=== PATIENT | female | born 1940 | race Caucasian/White ===

== ENCOUNTER 2017-09-30 13:57 | Inpatient (IN) | payer MEDICARE, OTHER ==
[2017-09-30 13:57] VITALS: BMI 17.6
[2017-09-30] MEDS ORDERED: Albuterol-Ipratrop 3 mg / 0.5 (3 ml) UD INH STA (14:28)
[2017-09-30 14:43] LABS: BASO % 0.1 % (0.0-2.0); EOS % 0.2 % (0.0-4.0); HEMOGLOBIN 12.1 g/dL (11.0-16.0); LYMPH # 0.9 K/uL (1.0-4.3); LYMPH % 11.2 % (20.0-40.0); MEAN CELL VOLUME 85.2 fL (81.0-99.0); MEAN CORPUSCULAR HEMOGLOBIN 29.5 pg (27.0-31.0); MEAN CORPUSCULAR HGB CONC 34.7 g/dL (33.0-37.0); MONO # 0.8 K/uL (0.0-0.8); MONO % 9.1 % (0.0-10.0); NEUT # 6.6 K/uL (1.8-7.0); NEUT % 79.4 % (50.0-75.0); RBC 4.11 Mil/uL (3.80-5.20); RED CELL DISTRIBUTION WIDTH 13.4 % (11.5-14.5); WHITE BLOOD COUNT 8.3 K/uL (4.8-10.8)
[2017-09-30] MEDS ORDERED: Albuterol-Ipratrop 3 mg / 0.5 (3 ml) UD ONE ×2 (14:45→19:55)
[2017-09-30] MEDS ORDERED: Magnesium Sulfate 1 gm in D5W 2 GM/200 ML BAG IVPB ONE (14:46)
[2017-09-30] MEDS: Magnesium Sulfate 1 gm in D5W 1 GM/100 ML BAG IVPB SCH ×2 (14:48→16:27)
[2017-09-30 14:58] LABS: ALB/GLOB RATIO 1.2 (1.0-2.1); ALBUMIN 3.7 g/dL (3.5-5.0); ALT/SGPT 47 U/L (9-52); AST/SGOT 35 U/L (14-36); BLOOD UREA NITROGEN 17 mg/dL (7-17); CALCIUM 9.4 mg/dl (8.6-10.4); GFR AFRICAN-AMERICAN > 60; GFR NON-AFRICAN AMERICAN > 60
[2017-09-30 15:02] LABS: B-TYPE NATRIURETIC PEPTIDE 1270 pg/mL (0-900)
--- NOTE | 2017-09-30 15:14 | RAD ---
Chest x-ray single frontal view History: Shortness of breath. Comparison: 09/18/2017 Findings: Prominent right apical pleural thickening. Worsening masslike consolidative opacification within the right lung apex extending to the right upper lung zone. Left apical pleural thickening. Scattered nodularity in both lung schwartz. Bibasilar breast and nipple shadows. Calcification at the aortic knob. Degenerative changes in the spine and shoulders. Calcification of the bilateral axilla. Impression: Prominent right apical pleural thickening. Worsening masslike consolidative opacification within the right lung apex extending to the right upper lung zone.
[2017-09-30] MEDS ORDERED: cefTRIAXone IV 1 gm in Dextros 50 ML IVPB ONE ×2 (16:15→16:24)
[2017-09-30] MEDS ORDERED: Azithromycin 500 MG in Sodium Chloride 0.9% 250 ML IVPB STA (16:16)
--- NOTE | 2017-09-30 16:39 | CP.PCM.HP ---
Past Patient History - Infectious Disease Hx of Infectious Diseases: None - Past Medical History & Family History Past Medical History?: Yes - Past Social History Smoking Status: Former Smoker - CARDIAC Hx Cardiac Disorders: No - PULMONARY Hx Asthma: Yes Hx Chronic Obstructive Pulmonary Disease (COPD): Yes - NEUROLOGICAL Hx Neurological Disorder: No - HEENT Hx HEENT Problems: Yes Hx Cataracts: Yes (sx both eyes) - RENAL Hx Chronic Kidney Disease: No - ENDOCRINE/METABOLIC Hx Endocrine Disorders: No - HEMATOLOGICAL/ONCOLOGICAL Hx Blood Disorders: No - INTEGUMENTARY Hx Dermatological Problems: No - MUSCULOSKELETAL/RHEUMATOLOGICAL Hx Falls: No - GASTROINTESTINAL Hx Gastrointestinal Disorders: No - GENITOURINARY/GYNECOLOGICAL Hx Genitourinary Disorders: No - PSYCHIATRIC Hx Anxiety: Yes Hx Substance Use: No - SURGICAL HISTORY Hx Surgeries: Yes Hx Cataract Extraction: Yes - ANESTHESIA Hx Anesthesia: Yes Hx Anesthesia Reactions: No Hx Malignant Hyperthermia: No Meds Allergies/Adverse Reactions: Allergies Allergy/AdvReac Type Severity Reaction Status Date / Time No Known Allergies Allergy Verified 09/18/17 19:46 Results - Vital Signs Recent Vital Signs: Last Vital Signs Temp 98.4 F 09/30/17 14:02 Pulse 89 09/30/17 16:17 Resp 20 09/30/17 16:17 BP 88/55 L 09/30/17 16:17 Pulse Ox 99 09/30/17 16:17 - Labs Result Diagrams: 09/30/17 14:37 09/30/17 14:37 Labs: Laboratory Results - last 24 hr 09/30/17 09/30/17 09/30/17 14:37 14:37 15:20 WBC 8.3 RBC 4.11 Hgb 12.1 Hct 35.0 MCV 85.2 MCH 29.5 MCHC 34.7 RDW 13.4 Plt Count 267 MPV 7.0 L Neut % (Auto) 79.4 H Lymph % (Auto) 11.2 L [place] % (Auto) 9.1 Eos % (Auto) 0.2 Baso % (Auto) 0.1 Neut # (Auto) 6.6 Lymph # (Auto) 0.9 L [place] # (Auto) 0.8 Eos # (Auto) 0.0 Baso # (Auto) 0.0 Sodium 128 L Potassium 3.9 Chloride 89 L Carbon Dioxide 27 Anion Gap 16 BUN 17 Creatinine 0.8 Est GFR ( Amer) > 60 Est GFR (Non-Af Amer) > 60 Random Glucose 126 H Calcium 9.4 Total Bilirubin 0.6 AST 35 ALT 47 Alkaline Phosphatase 76 Troponin I < 0.0120 NT-Pro-B Natriuret Pep 1270 H Total Protein 6.9 Albumin 3.7 Globulin 3.1 Albumin/Globulin Ratio 1.2
--- NOTE | 2017-09-30 18:41 | C.PDOC ---
History Of Present Illness 77 year old female presents to ED complaining of shortness of breath for x 1 day associated with a dry cough. Patient states she used her nebulizer at home with no relief. Patient reports she is on home oxygen, but it is not working. Denies fever, chest pain, abdominal pain, vomiting. Time Seen by Provider: 09/30/17 14:06 Chief Complaint (Nursing): Shortness Of Breath History Per: Patient History/Exam Limitations: no limitations Onset/Duration Of Symptoms: Days Current Symptoms Are (Timing): Still Present Past Medical History Reviewed: Historical Data, Nursing Documentation, Vital Signs Vital Signs: Last Vital Signs Temp 98.4 F 09/30/17 14:02 Pulse 89 09/30/17 16:17 Resp 20 09/30/17 16:17 BP 88/55 L 09/30/17 16:17 Pulse Ox 99 09/30/17 18:56 - Medical History PMH: Anxiety, Asthma, COPD, Pneumonia Denies: Chronic Kidney Disease Surgical History: No Surg Hx - [facility] Procedures ALCOHOL DETOXIFICATION (12/30/12) NON-INVASIVE MECHANICAL VENTILATION (12/30/12) Family History: States: No Known Family Hx - Social History Hx Tobacco Use: Yes Hx Alcohol Use: Yes Hx Substance Use: No - Immunization History Hx Tetanus Toxoid Vaccination: No Hx Influenza Vaccination: No Hx Pneumococcal Vaccination: No Review Of Systems Except As Marked, All Systems Reviewed And Found Negative. Constitutional: Negative for: Fever, Chills Cardiovascular: Negative for: Chest Pain Respiratory: Positive for: Cough (dry), Shortness of Breath Gastrointestinal: Negative for: Vomiting, Abdominal Pain Neurological: Negative for: Weakness, Numbness Physical Exam - Physical Exam Appears: Non-toxic, No Acute Distress Skin: Warm, Dry Head: Atraumatic, Normacephalic Eye(s): bilateral: Normal Inspection, PERRL, EOMI Oral Mucosa: Moist Neck: Supple Chest: Symmetrical Cardiovascular: Rhythm Irregular (irregularly irregular) Respiratory: Wheezing (bilateral expiratory wheezing.) Gastrointestinal/Abdominal: Soft, No Tenderness Neurological/Psych: Oriented x3, Normal Speech, Normal Motor, Normal Sensation Gait: Steady ED Course And Treatment - Laboratory Results Result Diagrams: 09/30/17 14:37 09/30/17 14:37 ECG: Interpreted By Me, Viewed By Me ECG Rhythm: Atrial Fibrillation Interpretation Of ECG: A-fib at 107. Normal axis which is new onset from recent EKG O2 Sat by Pulse Oximetry: 99 (RA) Pulse Ox Interpretation: Normal Progress Note: Spoke with Dr. Glover and patient was admitted to [facility] for further evaluation and treatment. Medical Decision Making Medical Decision Making: Impression: Shortness of breath Plan: * CT chest * EKG * labs * Duoneb * Heparin Disposition - Disposition Disposition Time: 15:50 Condition: FAIR - Clinical Impression Clinical Impression: COPD exacerbation - Scribe Statement The provider has reviewed the documentation as recorded by the Albin Pathaked Provider Attestation: All medical record entries made by the Albin were at my direction and personally dictated by me. I have reviewed the chart and agree that the record accurately reflects my personal performance of the history, physical exam, medical decision making, and the department course for this patient. I have also personally directed, reviewed, and agree with the discharge instructions and disposition.
[2017-09-30] MEDS: Vancomycin 1 gm/NS 200 ml 1 GM/200 ML BAG IVPB SCH (20:41)
[2017-09-30] MEDS: Albuterol-Ipratrop 3 mg / 0.5 (3 ml) UD INH SCH (20:41)
[2017-09-30] MEDS: MethylPREDNISolone 40 mg Vial IVP SCH (22:02)
[2017-10-01] MEDS: Albuterol-Ipratrop 3 mg / 0.5 (3 ml) UD INH SCH ×4 (01:35→19:15)
--- NOTE | 2017-10-01 09:01 | CT ---
CT chest History: Right upper lobe consolidation. Comparison: CT dated 09/21/2017 Technique: Multiple contiguous axial images were performed through the chest without the use of intravenous contrast. Subsequently, sagittal and coronal reformatted images were obtained. This CT exam was performed using one or more of the following dose reduction techniques: Automated exposure control, adjustment of the mA and/or kV according to patient size, and/or use of iterative reconstruction technique. Findings: Emphysematous lungs increased in AP diameter. Bullous changes in the upper and lower lobes. At the right lung apex, there is a spiculated masslike consolidation which measures about 7.6 x 3.6 x 3.8 centimeters. There are areas of cavitation and bronchiectasis within the mass. 1 centimeter focal area of nodular consolidation within the inferior aspect of the right upper lobe on series 3 image 66. Diffuse interstitial thickening in the right upper lobe with mild superior retraction of the minor fissure. In the anterior aspect of the left upper lobe, there is a small spiculated consolidation measuring 1.5 x 1.4 x 1.1 centimeters. Similar areas of cavitation and bronchiectasis within the consolidated lung. Additional nodules in the superior segment of the right lower lobe abutting the major fissure, anterior aspect of the left upper lobe, and posterior aspect of both lower lobes. No pleural effusion is identified. Small pericardial thickening. Heavily calcified aorta, great vessels, and coronary arteries. Narrowing of both subclavian arteries. Nonspecific subcentimeter lymph nodes in the right lower paratracheal, left lower paratracheal, aortopulmonary, precarinal, and subcarinal regions. For example, a 9 millimeter lymph node is noted in the right lower paratracheal region. Compression fractures of T2, T3, T10, and T12 vertebral bodies. Small retropulsed fragment indents on the ventral thecal sac at T10. Paucity of subcutaneous fat. Calcifications in the breast. Correlation with mammogram may be helpful. 1.6 centimeter fluid attenuation nodule in the right adrenal gland. Clinical correlation. Impression 7.6 x 3.1 x 3.8 centimeter spiculated masslike consolidation in the right lung apex, increased in size. This is of uncertain clinical etiology. This may represent a lung tumor versus postobstructive pneumonia versus additional etiology. Consider PET-CT scan or tissue sampling. Similar but smaller spiculated consolidation in the left upper lobe measuring 1.2 x 1.4 x 1.1 centimeters, new since the prior study. This also is of uncertain clinical etiology. This may be infectious and or inflammatory in etiology. 1.6 centimeter fluid attenuation nodule in the right adrenal gland which may represent an adrenal adenoma. Clinical correlation. Additional findings as above. These findings were preliminarily reported at 6:19 p.m. on 09/30/[address]Heesun Matthews from [facility].
[2017-10-01] MEDS: Pantoprazole 40 mg EC Tab PO SCH (09:42)
[2017-10-01] MEDS: MethylPREDNISolone 40 mg Vial IVP SCH ×2 (09:42→21:45)
[2017-10-01] MEDS ORDERED: cefTRIAXone IV 1 gm in Dextros 50 ML IVPB SCH (10:00)
[2017-10-01] MEDS ORDERED: Azithromycin 500 MG in Sodium Chloride 0.9% 250 ML IVPB SCH (16:45)
[2017-10-01] MEDS: Vancomycin 1 gm/NS 200 ml 1 GM/200 ML BAG IVPB SCH (21:00)
--- NOTE | 2017-10-01 21:34 | CP.PCM.PN ---
Subjective - Date & Time of Evaluation Date of Evaluation: 10/01/17 Time of Evaluation: 21:33 - Subjective Subjective: less cough doing well no sputum clinically better will check cxr if needed bronch to r/o cancer Objective - Vital Signs/Intake and Output Vital Signs (last 24 hours): Temp Pulse Resp BP Pulse Ox 97.9 F 100 H 18 111/66 96 10/01/17 15:00 10/01/17 15:00 10/01/17 15:00 10/01/17 15:00 10/01/17 15:00 - Medications Medications: Current Medications Albuterol/Ipratropium (Duoneb 3 Mg/0.5 Mg (3 Ml) Ud) 3 ml INH RQ6 [facility] Last Admin: 10/01/17 19:15 Dose: 3 ml Heparin Sodium (Porcine) (Heparin) 5,000 units SC Q8 GAEL Last Admin: 10/01/17 14:08 Dose: 5,000 units Azithromycin 500 mg/ Sodium (Chloride) 250 mls @ 250 mls/hr IVPB Q24H GAEL PRN Reason: Protocol Last Admin: 10/01/17 17:30 Dose: 250 mls/hr Vancomycin/Sodium Chloride (Vancomycin 1 Gm/Ns 200 Ml) 1 gm in 200 mls @ 166.7 mls/hr IVPB Q24H GAEL PRN Reason: Protocol Stop: 10/05/17 20:01 Last Admin: 09/30/17 20:41 Dose: 166.7 mls/hr Ceftriaxone Sodium 1 gm/ (Sodium Chloride) 100 mls @ 100 mls/hr IVPB DAILY GAEL PRN Reason: Protocol Last Admin: 10/01/17 10:54 Dose: 100 mls/hr Methylprednisolone (Solu-Medrol) 40 mg IVP Q12 GAEL Last Admin: 10/01/17 09:42 Dose: 40 mg Pantoprazole Sodium (Protonix Ec Tab) 40 mg PO DAILY GAEL Last Admin: 10/01/17 09:42 Dose: 40 mg - Labs Labs: 09/30/17 14:37 09/30/17 14:37
[2017-10-02] MEDS: Albuterol-Ipratrop 3 mg / 0.5 (3 ml) UD INH SCH ×3 (01:46→14:42)
[2017-10-02] MEDS: MethylPREDNISolone 40 mg Vial IVP SCH (09:19)
[2017-10-02] MEDS: Pantoprazole 40 mg EC Tab PO SCH (09:19)
--- NOTE | 2017-10-02 10:31 | RAD ---
Date of service: 10/02/2017 HISTORY: PNA COMPARISON: 09/30/2017 FINDINGS: LUNGS: Ill-defined pleural-based opacity in right upper lobe corresponding to irregular consolidations/ mass as seen on chest CT examination of 09/30/2017. No interval change. No new infiltrate. PLEURA: No significant pleural effusion identified, no pneumothorax apparent. CARDIOVASCULAR: Normal. OSSEOUS STRUCTURES: No significant abnormalities. VISUALIZED UPPER ABDOMEN: Normal. OTHER FINDINGS: None. IMPRESSION: No change from 09/30/2017. Right upper lobe opacity concerning for neoplasm versus pneumonia. Follow-up advised.
[2017-10-02 11:32] LABS: BASO % 0.1 % (0.0-2.0); HEMOGLOBIN 11.6 g/dL (11.0-16.0); LYMPH # 0.5 K/uL (1.0-4.3); LYMPH % 4.9 % (20.0-40.0); MEAN CELL VOLUME 86.3 fL (81.0-99.0); MEAN CORPUSCULAR HEMOGLOBIN 29.5 pg (27.0-31.0); MEAN CORPUSCULAR HGB CONC 34.2 g/dL (33.0-37.0); MEAN PLATELET VOLUME 6.9 fL (7.2-11.7); MONO # 0.3 K/uL (0.0-0.8); MONO % 3.3 % (0.0-10.0); NEUT # 9.3 K/uL (1.8-7.0); NEUT % 91.7 % (50.0-75.0); PLATELET COUNT 316 K/uL (130-400); RBC 3.92 Mil/uL (3.80-5.20); WHITE BLOOD COUNT 10.1 K/uL (4.8-10.8)
[2017-10-02 11:39] LABS: INR 1.1; PROTHROMBIN TIME 11.5 SECONDS (9.7-12.2)
[2017-10-02 11:55] LABS: ALB/GLOB RATIO 1.2 (1.0-2.1); ALBUMIN 3.6 g/dL (3.5-5.0); ALT/SGPT 31 U/L (9-52); AST/SGOT 12 U/L (14-36); BLOOD UREA NITROGEN 16 mg/dL (7-17); CALCIUM 8.5 mg/dl (8.6-10.4); GFR AFRICAN-AMERICAN > 60; GFR NON-AFRICAN AMERICAN > 60
[2017-10-02 12:00] LABS: ANISOCYTOSIS SLIGHT; BURR CELLS SLIGHT; HYPOCHROMIC SLIGHT; LYMPHOCYTE 5 % (20-40); MONOCYTE 2 % (0-10); MYELOCYTE 1 % (0-0); NEUTROPHIL 92 % (50-75); NUCLEATED RED BLOOD CELL 1 % (0-0); PLATELET ESTIMATE NORMAL (NORMAL); POIKILOCYTOSIS SLIGHT; TOTAL CELLS COUNTED 100
[2017-10-02 15:44] VITALS: BP 124/74; PULSE 81; RESP 20; TEMP 98.1; O2SAT 98
--- NOTE | 2017-10-02 16:06 | CP.PCM.PN ---
Subjective - Date & Time of Evaluation Date of Evaluation: 10/02/17 Time of Evaluation: 16:04 - Subjective Subjective: PATIENT SEEN AND EXAMINED AT THE BEDSIDE AAOX3 / DENIES CHEST PAIN SOB CXR REVIEW NO NEED FOR BRONCH TO R/O CA PER DR SOLIS NO SIGN OF DISTRESS NOTED Objective - Vital Signs/Intake and Output Vital Signs (last 24 hours): Temp Pulse Resp BP Pulse Ox 98.1 F 81 20 124/74 98 10/02/17 15:00 10/02/17 15:00 10/02/17 15:00 10/02/17 15:00 10/02/17 15:00 - Medications Medications: Current Medications Albuterol/Ipratropium (Duoneb 3 Mg/0.5 Mg (3 Ml) Ud) 3 ml INH RQ6 [facility] Last Admin: 10/02/17 14:42 Dose: Not Given Heparin Sodium (Porcine) (Heparin) 5,000 units SC Q8 [facility] Last Admin: 10/02/17 14:00 Dose: 5,000 units Azithromycin 500 mg/ Sodium (Chloride) 250 mls @ 250 mls/hr IVPB Q24H GAEL PRN Reason: Protocol Last Admin: 10/01/17 17:30 Dose: 250 mls/hr Vancomycin/Sodium Chloride (Vancomycin 1 Gm/Ns 200 Ml) 1 gm in 200 mls @ 166.7 mls/hr IVPB Q24H GAEL PRN Reason: Protocol Stop: 10/05/17 20:01 Last Admin: 10/01/17 21:00 Dose: 166.7 mls/hr Ceftriaxone Sodium 1 gm/ (Sodium Chloride) 100 mls @ 100 mls/hr IVPB DAILY GAEL PRN Reason: Protocol Last Admin: 10/02/17 09:19 Dose: 100 mls/hr Methylprednisolone (Solu-Medrol) 40 mg IVP Q12 [facility] Last Admin: 10/02/17 09:19 Dose: 40 mg Pantoprazole Sodium (Protonix Ec Tab) 40 mg PO DAILY [facility] Last Admin: 10/02/17 09:19 Dose: 40 mg - Labs Labs: 10/02/17 11:23 10/02/17 11:23 PT 11.5 SECONDS (9.7-12.2) 10/02/17 11:23 INR 1.1 10/02/17 11:23 APTT 29 SECONDS (21-34) 10/02/17 11:23 Assessment and Plan - Assessment and Plan (Free Text) Assessment: FOLLOW UP WITH DR SOLIS IN 1-2 WEEK AT HIS OFFICE ---CALL FOR APPOINTMENT CONTINUE HOME MEDICATION NEW PRESCRIPTION GIVEN LEVAQUIN 500 MG PO DAILY FOR 7 DAYS BACID 1 TAP DAILY FOR 7 DAYS ACTIVITY TOLERATED CALL DR SOLIS OR GO TO THE EMERGENCY ROOM IF SYMPTOMS OR RETURN DISCUSS WITH PATIENT WHO AGREE AND VERBALIZED UNDERSTANDING
--- NOTE | 2017-10-03 16:51 | CARD ---
APPROVED REPORT Date of service: 09/30/2017 EKG Measurement Heart [id number] <Conclusion> Multifocal atrial tachycardia ST elevation, consider early repolarization, pericarditis, or injury Abnormal ECG
== END 2017-10-02 16:13 | disposition home or self-care (01) | DRG 192 ==
LOC: C.ER 13:57 → C.9E 16:35 → C.5S 21:57
PROVIDERS: ADMIT Internal Medicine; ATTEND Internal Medicine
DX: J44.1 Chronic obstructive pulmonary disease with (acute) exacerbation (principal); Z87.891 Personal history of nicotine dependence; Z99.81 Dependence on supplemental oxygen

== ENCOUNTER 2017-10-26 07:25 | Inpatient (IN) | payer MEDICARE, MEDICAID ==
[2017-10-26 07:39] VITALS: BMI 19.5
--- NOTE | 2017-10-26 08:43 | C.PDOC ---
History Of Present Illness 77 y/o female with history of Asthma and CHF presents to ED with c/o constant sob since this morning associated with cough. Patient is speaking in full sentences and is asking for food at ED. Patient was discharged from hospital 1 day ago. Patient denies fever, chills, leg swelling, nausea, vomiting, chest pain or any other complaints at this time. Time Seen by Provider: 10/26/17 07:47 Chief Complaint (Nursing): Shortness Of Breath History Per: Patient History/Exam Limitations: no limitations Onset/Duration Of Symptoms: Days Current Symptoms Are (Timing): Still Present Past Medical History Reviewed: Historical Data, Nursing Documentation, Vital Signs Vital Signs: Last Vital Signs Temp 98.0 F 10/26/17 09:42 Pulse 118 H 10/26/17 09:42 Resp 17 10/26/17 09:42 BP 128/52 L 10/26/17 09:42 Pulse Ox 94 L 10/26/17 11:01 - Medical History PMH: Anxiety, Asthma, COPD, Pneumonia Surgical History: No Surg Hx - [facility] Procedures ALCOHOL DETOXIFICATION (12/30/12) EXCISION OF CECUM, OPEN APPROACH (10/09/17) EXCISION OF SIGMOID COLON, OPEN APPROACH (10/09/17) NON-INVASIVE MECHANICAL VENTILATION (12/30/12) Family History: States: No Known Family Hx - Social History Hx Tobacco Use: Yes Hx Alcohol Use: No Hx Substance Use: No - Immunization History Hx Tetanus Toxoid Vaccination: (unk) Hx Influenza Vaccination: Yes Hx Pneumococcal Vaccination: (unk) Review Of Systems Constitutional: Negative for: Fever, Chills Cardiovascular: Negative for: Chest Pain Respiratory: Positive for: Cough, Shortness of Breath Gastrointestinal: Negative for: Nausea, Vomiting Skin: Negative for: Rash Physical Exam - Physical Exam Appears: Non-toxic, Other (Cachectic, thin appearing. Speaking in full sentences ) Skin: Warm, Dry, No Rash Head: Atraumatic, Normacephalic Eye(s): bilateral: Normal Inspection Oral Mucosa: Moist Neck: Supple Cardiovascular: Rhythm Regular Respiratory: No Accessory Muscle Use, No Rales, No Rhonchi, Wheezing (diffuse and moderate) Gastrointestinal/Abdominal: Soft, No Tenderness, No Guarding, No Rebound Extremity: Normal ROM, No Pedal Edema, Capillary Refill (<2 seconds) Neurological/Psych: Oriented x3, Normal Speech, Normal Cognition, Normal Motor Gait: Steady ED Course And Treatment - Laboratory Results Result Diagrams: 10/26/17 08:48 10/26/17 08:48 O2 Sat by Pulse Oximetry: 94 (RA) Pulse Ox Interpretation: Abnormal Disposition - Disposition Disposition: HOSPITALIZED Disposition Time: 10:55 Condition: STABLE Forms: [facility] (Malaysian) - POA Present On Arrival: None - Clinical Impression Clinical Impression: Chr obstructive pulmonary disease w/ acute lower respiratory infxn, COPD exacerbation - 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 - Scribe Statement The provider has reviewed the documentation as recorded by the Mariluibhay Wolf All medical record entries made by the Mariluibhay were at my direction and personally dictated by me. I have reviewed the chart and agree that the record accurately reflects my personal performance of the history, physical exam, medical decision making, and the department course for this patient. I have also personally directed, reviewed, and agree with the discharge instructions and disposition.
[2017-10-26 08:53] LABS: BASO % 0.7 % (0.0-2.0); EOS % 0.3 % (0.0-4.0); HEMOGLOBIN 9.1 g/dL (11.0-16.0); LYMPH % 36.8 % (20.0-40.0); MEAN CELL VOLUME 86.6 fL (81.0-99.0); MEAN CORPUSCULAR HEMOGLOBIN 29.7 pg (27.0-31.0); MEAN CORPUSCULAR HGB CONC 34.2 g/dL (33.0-37.0); MEAN PLATELET VOLUME 6.9 fL (7.2-11.7); MONO # 0.9 K/uL (0.0-0.8); MONO % 16.3 % (0.0-10.0); NEUT # 2.4 K/uL (1.8-7.0); NEUT % 45.9 % (50.0-75.0); RBC 3.08 Mil/uL (3.80-5.20); RED CELL DISTRIBUTION WIDTH 15.9 % (11.5-14.5); WHITE BLOOD COUNT 5.3 K/uL (4.8-10.8)
[2017-10-26] MEDS ORDERED: Albuterol-Ipratrop 3 mg / 0.5 (3 ml) UD ONE (08:53)
[2017-10-26 09:08] LABS: ALB/GLOB RATIO 0.9 (1.0-2.1); ALBUMIN 2.3 g/dL (3.5-5.0); ALT/SGPT 24 U/L (9-52); AST/SGOT 19 U/L (14-36); BLOOD UREA NITROGEN 6 mg/dL (7-17); CALCIUM 7.9 mg/dl (8.6-10.4); GFR NON-AFRICAN AMERICAN > 60
[2017-10-26] MEDS: Albuterol-Ipratrop 3 mg / 0.5 (3 ml) UD IH SCH ×2 (09:10→09:25)
[2017-10-26 09:16] LABS: B-TYPE NATRIURETIC PEPTIDE 2100 pg/mL (0-900)
--- NOTE | 2017-10-26 11:28 | RAD ---
Date of service: 10/26/2017 PROCEDURE: CHEST RADIOGRAPH, 1 VIEW HISTORY: SOB COMPARISON: 10/19/2017 FINDINGS: LUNGS: Interval increase left pleural effusion. Inferred interval increased compressive atelectasis left lung base. Concomitant underlying infiltrate here and not excluded. The right pleural parenchymal pathology is [id number] before its clinical significance etiology is unclear. Underlying inflammatory/neoplastic changes here all considerations. Detailed clinical history here needed. Bullous emphysematous like changes probable perihilar PLEURA: Increasing left pleural effusion. No pneumothorax seen. Right apical pleural parenchymal similar pathology as noted above. CARDIOVASCULAR: Normal heart size. Pulmonary vasculature probably top-normal. OSSEOUS STRUCTURES: Senescent changes. VISUALIZED UPPER ABDOMEN: Normal. OTHER FINDINGS: Very extensive and very diffuse atherosclerotic vascular disease over each apex -lower neck each subclavian each axillary location. Thoracic aorta also heavily calcified. IMPRESSION: Interval increase left pleural effusion with inferred interval increase left compressive atelectasis. A concomitant left basal infiltrate -not excluded. Other extensive findings are as before.
--- NOTE | 2017-10-26 20:28 | CP.PCM.HP ---
History of Present Illness - History of Present Illness History of Present Illness: Chief complain: Patient came to the emergency room with the sudden onset of worsening shortness of breath. 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 Also seen by oncologist, but no aggressive treatment needed at this time for that. Patient was discharged, within 2 days patient started having increasing shortness of breath, also having cough and unable to breathe. She was not able to produce any mucus No fever noted She did not have any chest pain, no nausea no vomiting. But was not able to eat well. Past medical history: Hypertension, recurrent pedal edema, COPD, history of pneumonia in the past, Colon cancer recently diagnosed, and neuroendocrine type, adenocarcinoma type colon cancer noted. Allergies: No known drug allergy Surgical history includes cholecystectomy, Near-total colectomy Personal history: Patient is a heavy smoker, still continues to smoke almost a pack per day, she is also drinking alcohol she almost a drinks 6 cans of beer daily still continues to drink alcohol Family history: Patient's family members one of the brother of lung cancer and also had diabetes and hypertension Review of system: Patient is currently having some headache, no nausea noted, no visual symptoms, no sore throat noted, poor appetite, generalized weakness noted, cough and wheezing as well as shortness of breath present also complaining of abdominal pain on and off, no nausea vomiting, no leg swelling On examination: Vital signs reviewed Chest bilateral diffuse wheezing and rhonchi noted regular heart sound, tachycardia and high blood pressure noted Minimal abdominal distention present. Meghan noted. Pedal edema 1+ Labs reviewed 10/26/17 08:48 10/26/17 08:48 Chest x-ray showing evidence of COPD pattern and some vascular congestion or pneumonia on the right lower lung noted Assessment/condition: 77-year-old female with history of chronic obstructive lung disease alcoholic abuse chronic smoker malnourishment current recurrent pedal edema now admitted with acute exacerbation of COPD. Patient now admitted with acute exacerbation of COPD. Patient will need bronchodilators, low-dose corticosteroid, bronchodilators and no antibiotic needed at this time. Patient also has a increasing weakness, secondary to long hospitalization and the post surgical. She will need a physical therapy and evaluation. I advised the patient for subacute rehab, but the patient is currently refusing to go. We will start the physical therapy in the hospital. Anemia noted, most likely related to chronic disease, will monitor. DVT and GI prophylaxis. Present on Admission - Present on Admission Any Indicators Present on Admission: No History of DVT/PE: No History of Uncontrolled Diabetes: No Urinary Catheter: No Decubitus Ulcer Present: No Past Patient History - Infectious Disease Hx of Infectious Diseases: None - Past Medical History & Family History Past Medical History?: Yes - Past Social History Smoking Status: Former Smoker - CARDIAC Hx Cardiac Disorders: Yes Hx Congestive Heart Failure: Yes - PULMONARY Hx Asthma: Yes Hx Chronic Obstructive Pulmonary Disease (COPD): Yes Hx Pneumonia: Yes - NEUROLOGICAL Hx Neurological Disorder: No - HEENT Hx HEENT Problems: Yes Hx Cataracts: Yes (sx both eyes) - RENAL Hx Chronic Kidney Disease: No - ENDOCRINE/METABOLIC Hx Endocrine Disorders: No - HEMATOLOGICAL/ONCOLOGICAL Hx Blood Disorders: No Hx Cancer: Yes (colon) - INTEGUMENTARY Hx Dermatological Problems: No - MUSCULOSKELETAL/RHEUMATOLOGICAL Hx Musculoskeletal Disorders: No Hx Falls: No - GASTROINTESTINAL Hx Gastrointestinal Disorders: Yes Other/Comment: colon obstruction,colon ca - GENITOURINARY/GYNECOLOGICAL Hx Genitourinary Disorders: No - PSYCHIATRIC Hx Anxiety: Yes Hx Substance Use: No - SURGICAL HISTORY Hx Surgeries: Yes Hx Cataract Extraction: Yes Hx Section: Yes Other/Comment: colon surgery for obstruction,cancer - ANESTHESIA Hx Anesthesia: Yes Hx Anesthesia Reactions: No Hx Malignant Hyperthermia: No Has any member of the family had a problem w/ anesthesia?: No Meds Allergies/Adverse Reactions: Allergies Allergy/AdvReac Type Severity Reaction Status Date / Time No Known Allergies Allergy Verified 10/26/17 07:38 Results - Vital Signs Recent Vital Signs: Last Vital Signs Temp 98.0 F 10/26/17 15:00 Pulse 104 H 10/26/17 15:00 Resp 20 10/26/17 15:00 BP 104/59 L 10/26/17 15:00 Pulse Ox 98 10/26/17 15:00 - Labs Result Diagrams: 10/26/17 08:48 10/26/17 08:48 Labs: Laboratory Results - last 24 hr 10/26/17 10/26/17 08:48 08:48 WBC 5.3 RBC 3.08 L Hgb 9.1 L Hct 26.7 L MCV 86.6 MCH 29.7 MCHC 34.2 RDW 15.9 H Plt Count 178 MPV 6.9 L Neut % (Auto) 45.9 L Lymph % (Auto) 36.8 [place] % (Auto) 16.3 H Eos % (Auto) 0.3 Baso % (Auto) 0.7 Neut # (Auto) 2.4 Lymph # (Auto) 2.0 [place] # (Auto) 0.9 H Eos # (Auto) 0.0 Baso # (Auto) 0.0 Sodium 133 Potassium 3.9 Chloride 101 Carbon Dioxide 24 Anion Gap 12 BUN 6 L Creatinine 0.5 L Est GFR ( Amer) > 60 Est GFR (Non-Af Amer) > 60 Random Glucose 53 L Calcium 7.9 L Total Bilirubin 0.5 AST 19 ALT 24 Alkaline Phosphatase 43 NT-Pro-B Natriuret Pep 2100 H Total Protein 4.7 L Albumin 2.3 L Globulin 2.4 Albumin/Globulin Ratio 0.9 L
[2017-10-27] MEDS: Tiotropium 18 mcg Cap For Inhalation INH SCH (07:58)
--- NOTE | 2017-10-27 09:54 | CP.PCM.PN ---
Subjective - Date & Time of Evaluation Date of Evaluation: 10/27/17 Time of Evaluation: 09:53 - Subjective Subjective: Patient is morning feeling well. Still having some shortness of breath. Using oxygen. Cough noted, but no mucus. On examination: Good air entry, but left lower lung decreased air entry noted. Regular heart sound. Nontender abdomen. Edema 1+ Chest x-ray yesterday showing left lower lung pneumonia, possibly effusion, Will get a CT scan of the chest. Patient is 77-year-old female with a history of chronic COPD on home oxygen. Recently had a surgical intervention for acute colon obstruction, complicating with the vomiting status post a hemicolectomy, adenocarcinoma of the colon. Now admitted with possible pneumonia, left pleural effusion will get a CT scan. Possible thoracentesis may be needed and will follow the patient. Physical exercise and therapy advised Objective - Vital Signs/Intake and Output Vital Signs (last 24 hours): Temp Pulse Resp BP Pulse Ox 98.3 F 97 H 18 125/72 99 10/27/17 07:05 10/27/17 07:35 10/27/17 07:05 10/27/17 07:05 10/27/17 07:05 - Medications Medications: Current Medications Albuterol/Ipratropium (Duoneb 3 Mg/0.5 Mg (3 Ml) Ud) 3 ml INH RQ6 PRN PRN Reason: SOB Furosemide (Lasix) 20 mg IVP DAILY GAEL Cefepime HCl 1 gm/ Dextrose 50 mls @ 100 mls/hr IVPB Q12H GAEL PRN Reason: Protocol Stop: 11/01/17 10:01 Lactobacillus Acidophilus (Bacid Acidophilus) 1 cap PO DAILY GAEL Pantoprazole Sodium (Protonix Ec Tab) 40 mg PO DAILY GAEL Pneumococcal Polyvalent Vaccine (Pneumovax 23 Vaccine) 0.5 ml IM .ONCE ONE Stop: 10/27/17 14:01 Tiotropium [place] (Spiriva) 18 mcg INH RQ24 GAEL Last Admin: 10/27/17 07:58 Dose: 18 mcg - Labs Labs: 10/26/17 08:48 10/26/17 08:48
[2017-10-27] MEDS: Lactobacillus Acidophilus 500 MU Cap PO SCH (10:00)
[2017-10-27] MEDS: Pantoprazole 40 mg EC Tab PO SCH (10:00)
--- NOTE | 2017-10-27 11:51 | CT ---
Date of service: 10/27/2017 PROCEDURE: CT Chest without contrast HISTORY: Left lung pneumonia COMPARISON: 10/07/17. TECHNIQUE: Contiguous axial images were obtained through the chest without intravenous contrast enhancement. Sagittal and coronal reconstructions were performed. Radiation dose (DLP): mGy-cm. This CT exam was performed using one or more of the following dose reduction techniques: Automated exposure control, adjustment of the mA and/or kV according to patient size, and/or use of iterative reconstruction technique. FINDINGS: LUNGS: Stable mass with cavitation is smaller in size at the right upper lobe measuring 4.6 x 3.8 x 2.1 cm indicating inflammatory infectious process. MEDIASTINUM: Unremarkable thoracic aorta. No aneurysm. Normal sized heart. Main pulmonary artery unremarkable. No vascular congestion. No lymphadenopathy. PLEURA: New large left pleural effusion with compressive consolidation at the left base. New small right pleural effusion. BONES: No fracture. No destructive lesion. UPPER ABDOMEN: Ascites. OTHER FINDINGS: None. IMPRESSION: Stable mass with cavitation is smaller in size at the right upper lobe measuring 4.6 x 3.8 x 2.1 cm indicating inflammatory infectious process. New large left pleural effusion with compressive consolidation at the left base. New small right pleural effusion. Ascites
[2017-10-27] MEDS ORDERED: Pneumococcal 23-Valent Vaccine IM ONE (14:00)
[2017-10-28] MEDS: Tiotropium 18 mcg Cap For Inhalation INH SCH (07:36)
[2017-10-28] MEDS: Pantoprazole 40 mg EC Tab PO SCH (10:09)
[2017-10-28] MEDS: Lactobacillus Acidophilus 500 MU Cap PO SCH (10:10)
[2017-10-28] MEDS ORDERED: MethylPREDNISolone 40 mg Vial IV ONE (16:30)
--- NOTE | 2017-10-28 23:01 | CARD ---
APPROVED REPORT Date of service: 10/26/2017 EKG Measurement Heart [id number] <Conclusion> Sinus tachycardia with premature atrial complexes Low voltage QRS Abnormal ECG
[2017-10-29] MEDS: MethylPREDNISolone 40 mg Vial IV SCH ×3 (00:22→21:22)
[2017-10-29] MEDS: Tiotropium 18 mcg Cap For Inhalation INH SCH (07:42)
[2017-10-29] MEDS: Pantoprazole 40 mg EC Tab PO SCH (09:39)
[2017-10-29] MEDS: Lactobacillus Acidophilus 500 MU Cap PO SCH (09:39)
[2017-10-29] MEDS ORDERED: Sodium Chloride 0.9% 1,000 ML IV SCH (14:00)
--- NOTE | 2017-10-29 14:07 | CP.PCM.PN ---
Subjective - Date & Time of Evaluation Date of Evaluation: 10/29/17 Time of Evaluation: 14:07 - Subjective Subjective: Repeat chest x-ray showing evidence of left pleural effusion. Patient is still having episodes of shortness of breath Vital signs otherwise stable. Chest good air entry, expiratory wheezing Assessment: 77-year-old female with a history of COPD, chronic smoker. Alcoholism in the past. Admitted to the hospital with intestinal Suction. Status post a colectomy. Now having left-sided pneumonia, pleural effusion, and a possibly acute ex acerbation of CHF. Will continue the current treatment and will follow the patient Objective - Vital Signs/Intake and Output Vital Signs (last 24 hours): Temp Pulse Resp BP Pulse Ox 97.5 F L 81 20 80/56 L 99 10/29/17 08:10 10/29/17 08:10 10/29/17 08:10 10/29/17 09:39 10/29/17 08:10 Intake and Output: 10/29/17 10/29/17 06:59 18:59 Intake Total 400 Balance 400 - Medications Medications: Current Medications Albuterol/Ipratropium (Duoneb 3 Mg/0.5 Mg (3 Ml) Ud) 3 ml INH RQ6 PRN PRN Reason: SOB Furosemide (Lasix) 20 mg IVP DAILY [facility] Last Admin: 10/29/17 09:39 Dose: Not Given Cefepime HCl 1 gm/ Dextrose 50 mls @ 100 mls/hr IVPB Q12H GAEL PRN Reason: Protocol Stop: 11/01/17 12:01 Last Admin: 10/29/17 12:44 Dose: 100 mls/hr Sodium Chloride (Sodium Chloride 0.9%) 1,000 mls @ 50 mls/hr IV .Q20H GAEL Stop: 10/30/17 00:01 Lactobacillus Acidophilus (Bacid Acidophilus) 1 cap PO DAILY GAEL Last Admin: 10/29/17 09:39 Dose: 1 cap Methylprednisolone (Solu-Medrol) 40 mg IV Q12 GAEL Last Admin: 10/29/17 09:39 Dose: 40 mg Pantoprazole Sodium (Protonix Ec Tab) 40 mg PO DAILY GAEL Last Admin: 10/29/17 09:39 Dose: 40 mg Tiotropium [place] (Spiriva) 18 mcg INH RQ24 GAEL Last Admin: 10/29/17 07:42 Dose: 18 mcg - Labs Labs: 10/26/17 08:48 10/26/17 08:48
[2017-10-30] MEDS: MethylPREDNISolone 40 mg Vial IV SCH ×2 (10:07→21:00)
[2017-10-30] MEDS: Lactobacillus Acidophilus 500 MU Cap PO SCH (10:08)
[2017-10-30] MEDS: Pantoprazole 40 mg EC Tab PO SCH (10:12)
[2017-10-30 11:37] LABS: PROTHROMBIN TIME 10.5 SECONDS (9.7-12.2)
[2017-10-30] MEDS ORDERED: Furosemide 100 MG in Dextrose 5% In Water 90 ML IVP SCH (15:45)
[2017-10-31] MEDS: Tiotropium 18 mcg Cap For Inhalation INH SCH (08:07)
--- NOTE | 2017-10-31 08:19 | CP.PCM.PN ---
Subjective - Date & Time of Evaluation Date of Evaluation: 10/30/17 Time of Evaluation: 08:18 - Subjective Subjective: Patient still feeling some shortness of breath. Cough presently No chest pain. Weakness noted Vital signs stable. But the blood pressure slightly on the low side Chest decreased air entry in the left lower lung schwartz. Regular heart sound noted. Nontender abdomen. Postoperative Patient is having regular bowel movements Edema 1+ in the legs noted Assessment: 77-year-old female admitted with left lower lung pneumonia, effusion, and the shortness of breath. Awaiting for thoracentesis Will closely monitor. Repeat labs tomorrow Objective - Vital Signs/Intake and Output Vital Signs (last 24 hours): Temp Pulse Resp BP Pulse Ox 97.7 F 80 20 104/66 100 10/31/17 07:00 10/31/17 07:00 10/31/17 07:00 10/31/17 07:00 10/31/17 07:00 Intake and Output: 10/31/17 10/31/17 06:59 18:59 Intake Total 150 Balance 150 - Medications Medications: Current Medications Albuterol/Ipratropium (Duoneb 3 Mg/0.5 Mg (3 Ml) Ud) 3 ml INH RQ6 PRN PRN Reason: SOB Cefepime HCl 1 gm/ Dextrose 50 mls @ 100 mls/hr IVPB Q12H GAEL PRN Reason: Protocol Stop: 11/01/17 12:01 Last Admin: 10/31/17 00:43 Dose: 100 mls/hr Lactobacillus Acidophilus (Bacid Acidophilus) 1 cap PO DAILY GAEL Last Admin: 10/30/17 10:08 Dose: 1 cap Pantoprazole Sodium (Protonix Ec Tab) 40 mg PO DAILY GAEL Last Admin: 10/30/17 10:12 Dose: 40 mg Tiotropium [place] (Spiriva) 18 mcg INH RQ24 GAEL Last Admin: 10/31/17 08:07 Dose: 18 mcg - Labs Labs: 10/26/17 08:48 10/26/17 08:48 PT 10.5 SECONDS (9.7-12.2) 10/30/17 11:25 INR 1.0 10/30/17 11:25 APTT 25 SECONDS (21-34) 10/30/17 11:25
[2017-10-31] MEDS ORDERED: Lidocaine Hydrochloride 5 ML INJ ONE (08:40)
[2017-10-31] MEDS: Lactobacillus Acidophilus 500 MU Cap PO SCH (09:20)
[2017-10-31] MEDS: Pantoprazole 40 mg EC Tab PO SCH (09:20)
[2017-10-31] MEDS: MethylPREDNISolone 40 mg Vial IV SCH (09:20)
--- NOTE | 2017-10-31 09:53 | PCM.SURG1 ---
Surgeon's Initial Post Op Note - Surgeon's Notes Surgeon: Juan Romero MD Nanoscience Technician: NONE Type of Anesthesia: Local Pre-Operative Diagnosis: Left pleural effusion Operative Findings: US showed small left pleural effusion Post-Operative Diagnosis: Left pleural effusion Operation Performed: US guided thoracentesis Specimen/Specimens Removed: 450 cc of clear fluid Estimated Blood Loss: EBL {In ML}: 0 Blood Products Given: N/A Drains Used: No Drains Post-Op Condition: Fair Date of Surgery/Procedure: 10/31/17 Time of Surgery/Procedure: 09:20
[2017-10-31 12:07] LABS: BASO % 0.3 % (0.0-2.0); EOS % 0.1 % (0.0-4.0); LYMPH # 0.8 K/uL (1.0-4.3); LYMPH % 16.9 % (20.0-40.0); MEAN CELL VOLUME 86.3 fL (81.0-99.0); MEAN CORPUSCULAR HEMOGLOBIN 29.2 pg (27.0-31.0); MEAN CORPUSCULAR HGB CONC 33.9 g/dL (33.0-37.0); MEAN PLATELET VOLUME 7.3 fL (7.2-11.7); MONO # 0.4 K/uL (0.0-0.8); MONO % 9.2 % (0.0-10.0); NEUT # 3.5 K/uL (1.8-7.0); NEUT % 73.5 % (50.0-75.0); NRBC % 0.1 % (0.0-2.0); RBC 3.44 Mil/uL (3.80-5.20); WHITE BLOOD COUNT 4.7 K/uL (4.8-10.8)
[2017-10-31 12:35] LABS: ALB/GLOB RATIO 0.9 (1.0-2.1); ALBUMIN 2.4 g/dL (3.5-5.0); ALT/SGPT 28 U/L (9-52); AST/SGOT 24 U/L (14-36); BLOOD UREA NITROGEN 12 mg/dL (7-17); CALCIUM 8.2 mg/dl (8.6-10.4); GFR NON-AFRICAN AMERICAN > 60
--- NOTE | 2017-11-01 08:22 | RAD ---
Date of service: 10/31/2017 HISTORY: postthoracentesis COMPARISON: Portable chest 10/26/2017. FINDINGS: LUNGS: Examination appears somewhat underpenetrated. Diminishing left pleural effusion is evident. None is identified at right. Underlying left basilar airspace disease not excluded. No pneumothorax bilaterally. Biapical pleural fibrosis/plaque calcifications reiterated. PLEURA: As above. CARDIOVASCULAR: Normal cardiac size reiterated. Vascular calcifications again seen at the region of the great vessels subclavian and proximal brachial regions bilaterally. OSSEOUS STRUCTURES: No significant abnormalities. VISUALIZED UPPER ABDOMEN: Normal. OTHER FINDINGS: None. IMPRESSION: Diminishing left pleural effusion. Underlying left basilar airspace disease not excluded. Biapical pleural fibrosis reiterated.
[2017-11-01] MEDS: Tiotropium 18 mcg Cap For Inhalation INH SCH (08:28)
[2017-11-01] MEDS: Pantoprazole 40 mg EC Tab PO SCH (10:15)
[2017-11-01] MEDS: MethylPREDNISolone 40 mg Vial IV SCH (10:15)
[2017-11-01] MEDS: Lactobacillus Acidophilus 500 MU Cap PO SCH (10:15)
[2017-11-01] MEDS ORDERED: MethylPREDNISolone 40 mg Vial IV SCH (18:27)
[2017-11-01] MEDS: Magnesium Sulfate 1 gm in D5W 1 GM/100 ML BAG IVPB SCH ×2 (18:46→19:47)
[2017-11-01] MEDS: Albuterol-Ipratrop 3 mg / 0.5 (3 ml) UD INH PRN (22:08)
[2017-11-02] MEDS: Pantoprazole 40 mg EC Tab PO SCH (09:09)
[2017-11-02] MEDS: Lactobacillus Acidophilus 500 MU Cap PO SCH (09:09)
[2017-11-02] MEDS: Tiotropium 18 mcg Cap For Inhalation INH SCH (10:45)
[2017-11-02] MEDS: Albuterol-Ipratrop 3 mg / 0.5 (3 ml) UD INH PRN (19:39)
--- NOTE | 2017-11-02 20:33 | CP.PCM.PN ---
Subjective - Date & Time of Evaluation Date of Evaluation: 11/02/17 Time of Evaluation: 20:33 - Subjective Subjective: Patient is feeling weak. She is concerned about going home. She has weakness, unable to stand up and walk. Tremor present On examination: Vital signs stable otherwise. Chest decreased air entry regular heart sound Abdomen soft nontender. Edema bilaterally 1+ Assessment: 77-year-old female admitted to the hospital with left-sided pneumonia, pleural effusion status post thoracentesis. Clinical patient is feeling okay, but weakness generalized to noted. Status post colectomy. Poor intake weight loss and malnourishment. Will continue the current treatment, physical exercise. I advised the patient for rehabilitation but the patient is currently refusing Objective - Vital Signs/Intake and Output Vital Signs (last 24 hours): Temp Pulse Resp BP Pulse Ox 98.3 F 82 20 96/62 L 97 11/02/17 15:46 11/02/17 16:00 11/02/17 15:46 11/02/17 15:46 11/02/17 15:46 Intake and Output: 11/02/17 11/03/17 18:59 06:59 Intake Total 320 Output Total 400 Balance -80 - Medications Medications: Current Medications Albuterol/Ipratropium (Duoneb 3 Mg/0.5 Mg (3 Ml) Ud) 3 ml INH RQ6 PRN PRN Reason: SOB Last Admin: 11/02/17 19:39 Dose: 3 ml Lactobacillus Acidophilus (Bacid Acidophilus) 1 cap PO DAILY GAEL Last Admin: 11/02/17 09:09 Dose: 1 cap Pantoprazole Sodium (Protonix Ec Tab) 40 mg PO DAILY GAEL Last Admin: 11/02/17 09:09 Dose: 40 mg Tiotropium [place] (Spiriva) 18 mcg INH RQ24 GAEL Last Admin: 11/02/17 10:45 Dose: 18 mcg - Labs Labs: 10/31/17 11:35 10/31/17 11:35 PT 10.5 SECONDS (9.7-12.2) 10/30/17 11:25 INR 1.0 10/30/17 11:25 APTT 25 SECONDS (21-34) 10/30/17 11:25
[2017-11-03] MEDS: Lactobacillus Acidophilus 500 MU Cap PO SCH (09:21)
[2017-11-03] MEDS: Pantoprazole 40 mg EC Tab PO SCH (09:21)
[2017-11-04] MEDS: Tiotropium 18 mcg Cap For Inhalation INH SCH (08:11)
[2017-11-04] MEDS: Lactobacillus Acidophilus 500 MU Cap PO SCH (10:16)
[2017-11-04] MEDS: Pantoprazole 40 mg EC Tab PO SCH (10:16)
[2017-11-05] MEDS: Tiotropium 18 mcg Cap For Inhalation INH SCH (08:22)
[2017-11-05] MEDS: Lactobacillus Acidophilus 500 MU Cap PO SCH (09:30)
[2017-11-05] MEDS: Pantoprazole 40 mg EC Tab PO SCH (09:30)
[2017-11-05 13:47] LABS: BASO # 0.1 K/uL (0.0-0.2); BASO % 0.9 % (0.0-2.0); EOS % 0.7 % (0.0-4.0); HEMOGLOBIN 9.4 g/dL (11.0-16.0); LYMPH # 1.5 K/uL (1.0-4.3); LYMPH % 24.1 % (20.0-40.0); MEAN CELL VOLUME 86.4 fL (81.0-99.0); MEAN CORPUSCULAR HEMOGLOBIN 29.2 pg (27.0-31.0); MEAN CORPUSCULAR HGB CONC 33.9 g/dL (33.0-37.0); MEAN PLATELET VOLUME 7.2 fL (7.2-11.7); MONO # 0.6 K/uL (0.0-0.8); MONO % 10.5 % (0.0-10.0); NEUT # 3.8 K/uL (1.8-7.0); NEUT % 63.8 % (50.0-75.0); NRBC % 0.1 % (0.0-2.0); RBC 3.22 Mil/uL (3.80-5.20)
[2017-11-05 14:18] LABS: ALBUMIN 2.5 g/dL (3.5-5.0); ALT/SGPT 36 U/L (9-52); AST/SGOT 21 U/L (14-36); BLOOD UREA NITROGEN 12 mg/dL (7-17); CALCIUM 8.2 mg/dl (8.6-10.4); GFR NON-AFRICAN AMERICAN > 60
[2017-11-06] MEDS: Magnesium Sulfate 1 gm in D5W 1 GM/100 ML BAG IVPB SCH ×2 (01:23→02:01)
[2017-11-06] MEDS: Tiotropium 18 mcg Cap For Inhalation INH SCH (07:30)
[2017-11-06] MEDS: Lactobacillus Acidophilus 500 MU Cap PO SCH (09:55)
[2017-11-06] MEDS: Pantoprazole 40 mg EC Tab PO SCH (09:55)
--- NOTE | 2017-11-06 10:57 | US ---
PROCEDURE: Date of procedure: 10/31/2017 Procedure: 1. Ultrasound-guided left thoracentesis, CPT 96194 Medications: 1% Lidocaine HISTORY: Left pleural effusion, shortness of breath TECHNIQUE: Following informed consent ,the Patients' left chest was marked. Procedure time-out was called, and the patient was placed in the sitting position and limited ultrasound showed a small left effusion. The patient's left back was prepped and draped in the usual sterile fashion. After the skin was anesthetized with lidocaine, a drainage catheter was advanced under ultrasound guidance into the pleural space. Ultrasound-guided thoracentesis was performed. A total of 450 cubic centimeters of straw-colored fluid removed without complication. A Xeroform dressing was applied. IMPRESSION: Ultrasound guided left thoracentesis. There were no immediate complications.
[2017-11-06] MEDS: Albuterol-Ipratrop 3 mg / 0.5 (3 ml) UD INH PRN (14:29)
[2017-11-07] MEDS: Albuterol-Ipratrop 3 mg / 0.5 (3 ml) UD INH PRN (07:44)
[2017-11-07] MEDS: Tiotropium 18 mcg Cap For Inhalation INH SCH (07:46)
[2017-11-07] MEDS: Pantoprazole 40 mg EC Tab PO SCH (10:13)
[2017-11-07] MEDS: Lactobacillus Acidophilus 500 MU Cap PO SCH (10:14)
[2017-11-07 16:14] VITALS: RESP 20
--- NOTE | 2017-11-07 21:46 | CP.PCM.PN ---
Subjective - Date & Time of Evaluation Date of Evaluation: 11/03/17 Time of Evaluation: 21:46 - Subjective Subjective: Patient is feeling weak. She is concerned about going home. She has weakness, unable to stand up and walk. Tremor present On examination: Vital signs stable otherwise. Chest decreased air entry regular heart sound Abdomen soft nontender. Edema bilaterally 1+ Assessment: 77-year-old female admitted to the hospital with left-sided pneumonia, pleural effusion status post thoracentesis. Clinical patient is feeling okay, but weakness generalized to noted. Status post colectomy. Poor intake weight loss and malnourishment. Will continue the current treatment, physical exercise. I advised the patient for rehabilitation but the patient is currently refusing Objective - Vital Signs/Intake and Output Vital Signs (last 24 hours): Temp Pulse Resp BP Pulse Ox 98.5 F 90 20 105/58 L 96 11/07/17 19:36 11/07/17 19:36 11/07/17 15:45 11/07/17 19:36 11/07/17 15:45 Intake and Output: 11/07/17 11/08/17 18:59 06:59 Intake Total 320 Output Total 280 Balance 40 - Medications Medications: Current Medications Albuterol/Ipratropium (Duoneb 3 Mg/0.5 Mg (3 Ml) Ud) 3 ml INH RQ6 PRN PRN Reason: SOB Last Admin: 11/07/17 07:44 Dose: 3 ml Lactobacillus Acidophilus (Bacid Acidophilus) 1 cap PO DAILY GAEL Last Admin: 11/07/17 10:14 Dose: 1 cap Pantoprazole Sodium (Protonix Ec Tab) 40 mg PO DAILY GAEL Last Admin: 11/07/17 10:13 Dose: 40 mg Tiotropium [place] (Spiriva) 18 mcg INH RQ24 GAEL Last Admin: 11/07/17 07:46 Dose: 18 mcg - Labs Labs: 11/05/17 13:42 11/05/17 13:42 PT 10.5 SECONDS (9.7-12.2) 10/30/17 11:25 INR 1.0 10/30/17 11:25 APTT 25 SECONDS (21-34) 10/30/17 11:25
--- NOTE | 2017-11-07 21:49 | CP.PCM.PN ---
Subjective - Date & Time of Evaluation Date of Evaluation: 11/05/17 Time of Evaluation: 21:49 - Subjective Subjective: Patient is sitting up today. But still having feeling weakness. Chest pain negative. Cough present Vital signs: Temperature 98.1 blood pressure 142/72 chest good air entry bilaterally. Regular heart sound. Abdominal distention present, having bowel movements Patient's labs reviewed Low magnesium Hyponatremia noted Corrections Sergeant supplemented Assessment: 77-year-old female with a history of colon cancer, status post surgery. Neuroendocrine tumor of the colon. COPD. Chronic smoker. Alcoholism. Mal nourishment Patient still feeling extremely weak, suggested physical therapy, but the patient is still refusing. Continue the supportive care and physical therapy and will follow-up the patient Objective - Vital Signs/Intake and Output Vital Signs (last 24 hours): Temp Pulse Resp BP Pulse Ox 98.5 F 90 20 105/58 L 96 11/07/17 19:36 11/07/17 19:36 11/07/17 15:45 11/07/17 19:36 11/07/17 15:45 Intake and Output: 11/07/17 11/08/17 18:59 06:59 Intake Total 320 Output Total 280 Balance 40 - Medications Medications: Current Medications Albuterol/Ipratropium (Duoneb 3 Mg/0.5 Mg (3 Ml) Ud) 3 ml INH RQ6 PRN PRN Reason: SOB Last Admin: 11/07/17 07:44 Dose: 3 ml Lactobacillus Acidophilus (Bacid Acidophilus) 1 cap PO DAILY [facility] Last Admin: 11/07/17 10:14 Dose: 1 cap Pantoprazole Sodium (Protonix Ec Tab) 40 mg PO DAILY GAEL Last Admin: 11/07/17 10:13 Dose: 40 mg Tiotropium [place] (Spiriva) 18 mcg INH RQ24 GAEL Last Admin: 11/07/17 07:46 Dose: 18 mcg - Labs Labs: 11/05/17 13:42 11/05/17 13:42 PT 10.5 SECONDS (9.7-12.2) 10/30/17 11:25 INR 1.0 10/30/17 11:25 APTT 25 SECONDS (21-34) 10/30/17 11:25
--- NOTE | 2017-11-07 21:49 | CP.PCM.PN ---
Subjective - Date & Time of Evaluation Date of Evaluation: 11/04/17 Time of Evaluation: 21:48 - Subjective Subjective: Patient is sitting up today. But still having feeling weakness. Chest pain negative. Cough present Vital signs: Temperature 98.1 blood pressure 142/72 chest good air entry bilaterally. Regular heart sound. Abdominal distention present, having bowel movements Assessment: 77-year-old female with a history of colon cancer, status post surgery. Neuroendocrine tumor of the colon. COPD. Chronic smoker. Alcoholism. Mal nourishment Patient still feeling extremely weak, suggested physical therapy, but the patient is still refusing. Continue the supportive care and physical therapy and will follow-up the patient We will repeat the labs Objective - Vital Signs/Intake and Output Vital Signs (last 24 hours): Temp Pulse Resp BP Pulse Ox 98.5 F 90 20 105/58 L 96 11/07/17 19:36 11/07/17 19:36 11/07/17 15:45 11/07/17 19:36 11/07/17 15:45 Intake and Output: 11/07/17 11/08/17 18:59 06:59 Intake Total 320 Output Total 280 Balance 40 - Medications Medications: Current Medications Albuterol/Ipratropium (Duoneb 3 Mg/0.5 Mg (3 Ml) Ud) 3 ml INH RQ6 PRN PRN Reason: SOB Last Admin: 11/07/17 07:44 Dose: 3 ml Lactobacillus Acidophilus (Bacid Acidophilus) 1 cap PO DAILY [facility] Last Admin: 11/07/17 10:14 Dose: 1 cap Pantoprazole Sodium (Protonix Ec Tab) 40 mg PO DAILY GAEL Last Admin: 11/07/17 10:13 Dose: 40 mg Tiotropium [place] (Spiriva) 18 mcg INH RQ24 GAEL Last Admin: 11/07/17 07:46 Dose: 18 mcg - Labs Labs: 11/05/17 13:42 11/05/17 13:42 PT 10.5 SECONDS (9.7-12.2) 10/30/17 11:25 INR 1.0 10/30/17 11:25 APTT 25 SECONDS (21-34) 10/30/17 11:25
--- NOTE | 2017-11-07 21:51 | CP.PCM.PN ---
Subjective - Date & Time of Evaluation Date of Evaluation: 11/06/17 Time of Evaluation: 21:50 - Subjective Subjective: Patient feeling okay Today she participated physical therapy. She was able to stand up. But did weakness upon walking. She is eating well otherwise Vital signs: Chest good air entry Regular heart sound Nontender abdomen. Minimal distention abdomen noted Patient has a bowel movements Assessment/recommendation 77-year-old female with a history of colon cancer, status post surgery. Neuroendocrine tumor of the colon. COPD. Chronic smoker. Alcoholism. Mal nourishment Patient still feeling extremely weak, suggested physical therapy, but the patient is still refusing. I suggested the patient for transitional Care unit. Patient was initially accepting, will possibly transfer her if the bed is available tomorrow. Objective - Vital Signs/Intake and Output Vital Signs (last 24 hours): Temp Pulse Resp BP Pulse Ox 98.5 F 90 20 105/58 L 96 11/07/17 19:36 11/07/17 19:36 11/07/17 15:45 11/07/17 19:36 11/07/17 15:45 Intake and Output: 11/07/17 11/08/17 18:59 06:59 Intake Total 320 Output Total 280 Balance 40 - Medications Medications: Current Medications Albuterol/Ipratropium (Duoneb 3 Mg/0.5 Mg (3 Ml) Ud) 3 ml INH RQ6 PRN PRN Reason: SOB Last Admin: 11/07/17 07:44 Dose: 3 ml Lactobacillus Acidophilus (Bacid Acidophilus) 1 cap PO DAILY [facility] Last Admin: 11/07/17 10:14 Dose: 1 cap Pantoprazole Sodium (Protonix Ec Tab) 40 mg PO DAILY GAEL Last Admin: 11/07/17 10:13 Dose: 40 mg Tiotropium [place] (Spiriva) 18 mcg INH RQ24 GAEL Last Admin: 11/07/17 07:46 Dose: 18 mcg - Labs Labs: 11/05/17 13:42 11/05/17 13:42 PT 10.5 SECONDS (9.7-12.2) 10/30/17 11:25 INR 1.0 10/30/17 11:25 APTT 25 SECONDS (21-34) 10/30/17 11:25
--- NOTE | 2017-11-07 21:54 | CP.PCM.PN ---
Subjective - Date & Time of Evaluation Date of Evaluation: 11/07/17 Time of Evaluation: 21:53 - Subjective Subjective: The patient this evening feeling well. Eating well. But abdominal distention present. No nausea no vomiting Patient had a bowel movements today. Patient is able to stand up, but she is increasingly weak Vital signs noted. Blood pressure slightly on the low side. Chest bilateral good air entry Mild expiratory wheezing Abdominal distention tympanic noted, bowel movements present No labs today. Assessment: 77-year-old female with a history of COPD. Home oxygen. Patient is also using nebulizers to him. Admitted now with left-sided pleural effusion, and atelectasis and pneumonia. She completed antibiotic. Currently needing physical therapy and the physical exercise. Tomorrow will repeat the chest x-ray. We'll repeat the labs. Patient had a low magnesium, low possible for us and also low sodium level Will monitor. Abdominal x-ray. X-ray has to be monitored for possibly ileus. Physical therapy to be continued. Rehabilitation evaluation is still pending, but the patient is a refusing to go. I explained to the patient if it is not patient possibly can be discharged home once stable. Patient will be covered by hospitalist from tomorrow Objective - Vital Signs/Intake and Output Vital Signs (last 24 hours): Temp Pulse Resp BP Pulse Ox 98.5 F 90 20 105/58 L 96 11/07/17 19:36 11/07/17 19:36 11/07/17 15:45 11/07/17 19:36 11/07/17 15:45 Intake and Output: 11/07/17 11/08/17 18:59 06:59 Intake Total 320 Output Total 280 Balance 40 - Medications Medications: Current Medications Albuterol/Ipratropium (Duoneb 3 Mg/0.5 Mg (3 Ml) Ud) 3 ml INH RQ6 PRN PRN Reason: SOB Last Admin: 11/07/17 07:44 Dose: 3 ml Lactobacillus Acidophilus (Bacid Acidophilus) 1 cap PO DAILY GAEL Last Admin: 11/07/17 10:14 Dose: 1 cap Pantoprazole Sodium (Protonix Ec Tab) 40 mg PO DAILY GAEL Last Admin: 11/07/17 10:13 Dose: 40 mg Tiotropium [place] (Spiriva) 18 mcg INH RQ24 GAEL Last Admin: 11/07/17 07:46 Dose: 18 mcg - Labs Labs: 11/05/17 13:42 11/05/17 13:42 PT 10.5 SECONDS (9.7-12.2) 10/30/17 11:25 INR 1.0 10/30/17 11:25 APTT 25 SECONDS (21-34) 10/30/17 11:25
[2017-11-08] MEDS: Tiotropium 18 mcg Cap For Inhalation INH SCH (07:34)
[2017-11-08] MEDS: Albuterol-Ipratrop 3 mg / 0.5 (3 ml) UD INH PRN ×2 (07:34→13:17)
[2017-11-08 07:54] LABS: BASO % 0.7 % (0.0-2.0); EOS % 0.7 % (0.0-4.0); HEMOGLOBIN 8.8 g/dL (11.0-16.0); LYMPH % 24.5 % (20.0-40.0); MEAN CELL VOLUME 86.6 fL (81.0-99.0); MEAN CORPUSCULAR HEMOGLOBIN 29.1 pg (27.0-31.0); MEAN CORPUSCULAR HGB CONC 33.6 g/dL (33.0-37.0); MEAN PLATELET VOLUME 6.8 fL (7.2-11.7); MONO # 0.5 K/uL (0.0-0.8); MONO % 11.7 % (0.0-10.0); NEUT # 2.5 K/uL (1.8-7.0); NEUT % 62.4 % (50.0-75.0); RBC 3.04 Mil/uL (3.80-5.20); RED CELL DISTRIBUTION WIDTH 16.2 % (11.5-14.5)
[2017-11-08 08:21] LABS: ALBUMIN 2.6 g/dL (3.5-5.0); ALT/SGPT 36 U/L (9-52); AST/SGOT 19 U/L (14-36); BLOOD UREA NITROGEN 13 mg/dL (7-17); CALCIUM 8.3 mg/dl (8.6-10.4); GFR NON-AFRICAN AMERICAN > 60
--- NOTE | 2017-11-08 09:57 | RAD ---
Date of service: 11/08/2017 HISTORY: effusion COMPARISON: 10/31/2017 FINDINGS: LUNGS: Focal opacity in right apex. Evaluation is somewhat limited due to marked apical lordotic positioning. This corresponds to an irregular mass on CT examination of 10/27/2017. No other abnormal pulmonary opacity. PLEURA: Small left pleural effusion. No right pleural effusion. No pneumothorax. CARDIOVASCULAR: Normal. OSSEOUS STRUCTURES: No significant abnormalities. VISUALIZED UPPER ABDOMEN: Normal. OTHER FINDINGS: None. IMPRESSION: Irregular right apical opacity consistent with known mass on recent CT examination. Small left pleural effusion.
[2017-11-08] MEDS: Pantoprazole 40 mg EC Tab PO SCH (10:42)
[2017-11-08] MEDS: Lactobacillus Acidophilus 500 MU Cap PO SCH (10:42)
[2017-11-08 15:23] VITALS: BP 100/65; PULSE 94; TEMP 98.5; O2SAT 96
--- NOTE | 2017-11-08 20:40 | CP.PCM.DIS ---
Provider - Provider Date of Admission: 10/26/17 10:56 Attending physician: Lewis Miranda MD Primary care physician: Dr. 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 (5) Body fluid retention Status: Chronic (6) Colon cancer Status: Chronic (7) Dyspnea Status: Acute (8) Pneumonia Status: Acute (9) Respiratory distress Status: Acute Hospital Course - Lab Results Lab Results: Most Recent Lab Values WBC 4.0 K/uL (4.8-10.8) L 11/08/17 07:43 RBC 3.04 Mil/uL (3.80-5.20) L 11/08/17 07:43 Hgb 8.8 g/dL (11.0-16.0) L 11/08/17 07:43 Hct 26.3 % (34.0-47.0) L 11/08/17 07:43 MCV 86.6 fL (81.0-99.0) 11/08/17 07:43 MCH 29.1 pg (27.0-31.0) 11/08/17 07:43 MCHC 33.6 g/dL (33.0-37.0) 11/08/17 07:43 RDW 16.2 % (11.5-14.5) H 11/08/17 07:43 Plt Count 221 K/uL (130-400) 11/08/17 07:43 MPV 6.8 fL (7.2-11.7) L 11/08/17 07:43 Neut % (Auto) 62.4 % (50.0-75.0) 11/08/17 07:43 Lymph % (Auto) 24.5 % (20.0-40.0) 11/08/17 07:43 [place] % (Auto) 11.7 % (0.0-10.0) H 11/08/17 07:43 Eos % (Auto) 0.7 % (0.0-4.0) 11/08/17 07:43 Baso % (Auto) 0.7 % (0.0-2.0) 11/08/17 07:43 Neut # (Auto) 2.5 K/uL (1.8-7.0) 11/08/17 07:43 Lymph # (Auto) 1.0 K/uL (1.0-4.3) 11/08/17 07:43 [place] # (Auto) 0.5 K/uL (0.0-0.8) 11/08/17 07:43 Eos # (Auto) 0.0 K/uL (0.0-0.7) 11/08/17 07:43 Baso # (Auto) 0.0 K/uL (0.0-0.2) 11/08/17 07:43 PT 10.5 SECONDS (9.7-12.2) 10/30/17 11:25 INR 1.0 10/30/17 11:25 APTT 25 SECONDS (21-34) 10/30/17 11:25 Sodium 131 mmol/L (132-148) L 11/08/17 07:43 Potassium 4.6 mmol/L (3.6-5.2) 11/08/17 07:43 Chloride 95 mmol/L (98-107) L 11/08/17 07:43 Carbon Dioxide 31 mmol/L (22-30) H 11/08/17 07:43 Anion Gap 9 (10-20) L 11/08/17 07:43 BUN 13 mg/dL (7-17) 11/08/17 07:43 Creatinine 0.5 mg/dL (0.7-1.2) L 11/08/17 07:43 Est GFR ( Amer) > 60 11/08/17 07:43 Est GFR (Non-Af Amer) > 60 11/08/17 07:43 POC Glucose (mg/dL) 98 mg/dL (65-110) 11/05/17 06:12 Random Glucose 81 mg/dL (65-105) 11/08/17 07:43 Calcium 8.3 mg/dl (8.6-10.4) L 11/08/17 07:43 Phosphorus 3.9 mg/dL (2.5-4.5) 11/08/17 07:43 Magnesium 1.9 mg/dL (1.6-2.3) 11/08/17 07:43 Total Bilirubin 0.3 mg/dL (0.2-1.3) 11/08/17 07:43 AST 19 U/L (14-36) 11/08/17 07:43 ALT 36 U/L (9-52) 11/08/17 07:43 Alkaline Phosphatase 53 U/L (38-126) 11/08/17 07:43 NT-Pro-B Natriuret Pep 2100 pg/mL (0-900) H 10/26/17 08:48 Total Protein 5.3 g/dL (6.3-8.3) L 11/08/17 07:43 Albumin 2.6 g/dL (3.5-5.0) L 11/08/17 07:43 Globulin 2.7 gm/dL (2.2-3.9) 11/08/17 07:43 Albumin/Globulin Ratio 1.0 (1.0-2.1) 11/08/17 07:43 - Hospital Course Hospital Course: Medicine Discharge Summary for Hospitalist Service Jonh Temple DO PGY-1, [employer] This is a 77 y o female with PMhx of COPD, recurrent pedal edema, PNA, recent hospitalization with acute bowel obstruction (underwent near-total hemicolectomy, 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 Pt also admitted to non-productive cough; denied fever, chest pain, n/v. Also admitted to poor appetite on presentation. Admitted to [facility], generalized weakness, wheezing, shortness of breath, and intermittent abd pain. Denied nausea, vomiting, visual symptoms, sore throat, or leg swelling. Pt was admitted for acute COPD exacerbation, was recommended bronchodilators and low-dose corticosteroids for treatment; also was found to have L sided pneumonia on imaging, however antibiotics were not clinically indicated for therapy as per Dr. Glover. Chest CT demonstrated stable mass with cavitation at R upper lobe indicating inflammatory infectious process, and L large pleural effusion. Pt had on 10/31/17 thoracentesis of L sided pleural effusion performed by Interventional Radiology (Dr. Romero) with subsequent improvement of clinical symptoms. Subsequent CXRs demonstrated interval improvement. Pt also presented with increasing weakness, physical therapy evaluated the patient and recommended sub-acute rehab, which the patient declined, stating she was only interested in getting physical therapy outpatient and from home. Patient's shortness of breath secondary to the COPD exacerbation improved during admission, and pt demonstrated minimal wheezing on exam. Patient was discharged to home in stable condition on 11/08/17 with instructions to follow-up with her PCP (Dr. Glover) within 1 week of discharge. Pt was instructed to resume home medications as prescribed, and abstain from alcohol and tobacco use. Patient was also given prescription for outpatient physical therapy services. Discharge Exam - Head Exam Head Exam: ATRAUMATIC, NORMOCEPHALIC - Eye Exam Eye Exam: EOMI, Normal appearance, PERRL - ENT Exam ENT Exam: Mucous Membranes Moist - Respiratory Exam Respiratory Exam: Clear to PA & Lateral, NORMAL BREATHING PATTERN, UNREMARKABLE Additional comments: Minimal wheezing noted on exam in all lung schwartz - Cardiovascular Exam Cardiovascular Exam: REGULAR RHYTHM, +S1, +S2 - GI/Abdominal Exam GI & Abdominal Exam: Normal Bowel Sounds, Soft, Unremarkable - Neurological Exam Neurological exam: Alert, CN II-XII Intact, Oriented x3 - Skin Skin Exam: Dry, Intact, Warm Discharge Plan - Follow Up Plan Condition: STABLE Disposition: HOME/ ROUTINE Instructions: Heart Failure, Adult, Heart Healthy Diet, Pleural Effusion (DC), Exacerbation of COPD (DC), Thoracentesis (DC) Additional Instructions: Patient medically stable for discharge. Patient refused inpatient rehab and physical therapy at this time, risks and benefits were explained to patient, who is understanding of course of treatment. Patient given script for outpatient physical therapy and rolling walker. Please resume home medications as prescribed. Patient was offered home oxygen but refused to wear it at home. Patient advised to abstain from alcohol use and tobacco use. Patient instructed to follow with primary care physician within 1 week of discharge (Dr. Glover). 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 Anderson (Pulmonology) after discharge. Should symptoms recur or worsen, please call your primary care physician or return to your nearest emergency department. Referrals: Jax Anderson MD [Staff Provider] - Jose Rafael Glover MD [Staff Provider] -
== END 2017-11-08 23:07 | disposition home or self-care (01) | DRG 190 ==
LOC: C.ER 07:25 → C.9E 10:56 → C.6T 11:09
PROVIDERS: ADMIT Internal Medicine; ATTEND Internal Medicine
PROC: 0W9B3ZZ Drainage of Left Pleural Cavity, Percutaneous Approach (ICD-10-PCS; principal; 2017-10-31)
DX: J44.0 Chronic obstructive pulmonary disease with (acute) lower respiratory infection (principal); J18.9 Pneumonia, unspecified organism; Z68.1 Body mass index [BMI] 19.9 or less, adult; J44.1 Chronic obstructive pulmonary disease with (acute) exacerbation; F17.200 Nicotine dependence, unspecified, uncomplicated; I11.0 Hypertensive heart disease with heart failure; I50.9 Heart failure, unspecified; Z85.038 Personal history of other malignant neoplasm of large intestine; D63.8 Anemia in other chronic diseases classified elsewhere

== ENCOUNTER 2017-11-12 20:01 | Inpatient (IN) | payer MEDICARE, MEDICAID ==
[2017-11-12 20:03] VITALS: BMI 19.5
[2017-11-12] MEDS ORDERED: Iohexol 240 (50 ml) PO ONE (21:18)
[2017-11-12 21:19] LABS: BASO # 0.1 K/uL (0.0-0.2); BASO % 0.5 % (0.0-2.0); EOS % 0.2 % (0.0-4.0); HEMOGLOBIN 10.3 g/dL (11.0-16.0); LYMPH # 1.4 K/uL (1.0-4.3); LYMPH % 14.8 % (20.0-40.0); MEAN CELL VOLUME 86.2 fL (81.0-99.0); MEAN CORPUSCULAR HEMOGLOBIN 29.7 pg (27.0-31.0); MEAN CORPUSCULAR HGB CONC 34.4 g/dL (33.0-37.0); MEAN PLATELET VOLUME 6.8 fL (7.2-11.7); MONO # 0.9 K/uL (0.0-0.8); MONO % 9.7 % (0.0-10.0); NEUT # 7.2 K/uL (1.8-7.0); NEUT % 74.8 % (50.0-75.0); RBC 3.45 Mil/uL (3.80-5.20); RED CELL DISTRIBUTION WIDTH 15.5 % (11.5-14.5)
[2017-11-12] MEDS ORDERED: Sodium Chloride 0.9% 1,000 ML IV ONE (21:19)
[2017-11-12 21:20] LABS: WHITE BLOOD COUNT 9.6 K/uL (4.8-10.8)
[2017-11-12] MEDS ORDERED: Iohexol 240 (50 ml) ONE (21:28)
[2017-11-12] MEDS ORDERED: Sodium Chloride 0.9% 1,000 ML ONE (21:28)
[2017-11-12 21:37] LABS: ALB/GLOB RATIO 1.3 (1.0-2.1); ALBUMIN 3.8 g/dL (3.5-5.0); ALT/SGPT 29 U/L (9-52); AST/SGOT 27 U/L (14-36); BLOOD UREA NITROGEN 11 mg/dL (7-17); CALCIUM 8.9 mg/dl (8.6-10.4); GFR NON-AFRICAN AMERICAN > 60
--- NOTE | 2017-11-12 21:43 | C.PDOC ---
History Of Present Illness 77yo female, comes to ER reporting diarrhea and lower abdominal distention x 3 days. Patient denies any associated vomiting, chest pain or shortness of breath. She also reports abdominal pain in bilateral lower quadrants. No additional medical complaints. Time Seen by Provider: 11/12/17 21:11 Chief Complaint (Nursing): GI Problem History Per: Patient History/Exam Limitations: no limitations Onset/Duration Of Symptoms: Days Location Of Pain/Discomfort: RLQ, LLQ Quality Of Discomfort: "Pain" Associated Symptoms: denies: Vomiting Past Medical History Reviewed: Historical Data, Nursing Documentation, Vital Signs Vital Signs: Last Vital Signs Temp 98.1 F 11/12/17 20:10 Pulse 96 H 11/12/17 20:10 Resp 24 11/12/17 20:12 BP 102/59 L 11/12/17 20:10 Pulse Ox 96 11/12/17 20:12 - Medical History PMH: Anxiety, Asthma, CHF, COPD, Pneumonia Denies: Chronic Kidney Disease Surgical History: No Surg Hx - [facility] Procedures ALCOHOL DETOXIFICATION (12/30/12) DRAINAGE OF LEFT PLEURAL CAVITY, PERCUTANEOUS APPROACH (10/26/17) EXCISION OF CECUM, OPEN APPROACH (10/09/17) EXCISION OF SIGMOID COLON, OPEN APPROACH (10/09/17) NON-INVASIVE MECHANICAL VENTILATION (12/30/12) Family History: States: No Known Family Hx - Social History Hx Tobacco Use: Yes Hx Alcohol Use: No Hx Substance Use: No - Immunization History Hx Tetanus Toxoid Vaccination: (unk) Hx Influenza Vaccination: Yes Hx Pneumococcal Vaccination: (unk) Review Of Systems Except As Marked, All Systems Reviewed And Found Negative. Gastrointestinal: Positive for: Abdominal Pain. Negative for: Vomiting, Di arrhea Physical Exam - Physical Exam Appears: Non-toxic, No Acute Distress Skin: Normal Color, Warm, Dry Head: Atraumatic, Normacephalic Eye(s): bilateral: Normal Inspection, PERRL, EOMI Neck: Normal ROM, Supple Cardiovascular: Rhythm Regular Respiratory: Normal Breath Sounds Gastrointestinal/Abdominal: Soft, Tenderness (generalized lower abdominal tenderness), No Mass, Distention (lower abdomen), No Guarding, No Rebound Back: Normal Inspection Extremity: Normal ROM Neurological/Psych: Oriented x3 ED Course And Treatment - Laboratory Results Result Diagrams: 11/12/17 21:14 11/12/17 21:14 O2 Sat by Pulse Oximetry: 96 (RA) Pulse Ox Interpretation: Normal - CT Scan/US CT abd/pelvis Other Rad Studies (CT/US): Read By Radiologist, Radiology Report Reviewed CT/US Interpretation: CT SCAN OF THE ABDOMEN AND PELVIS WITH CONTRAST. CLINICAL HISTORY: Abdominal pain. TECHNIQUE: Multiple axial and coronal CT images were obtained through the abdomen and pelvis after administration of intravenous and oral contrast material. COMPARISON: 10/08/2017. COMMENTS: Contrast filled distended small bowels. Transition zone at the level of the surgical anastomosis in the pelvis. Moderate amount of free pelvic fluid. The liver is of uniform attenuation without mass or defect. There is moderate biliary ductal dilatation. The spleen is normal. The gallbladder contains gallstones and s ludge. Moderately dilated pancreatic duct without evidence of a mass lesion. There is no evidence of adrenal mass. Bilateral suprarenal cysts are noted. Both kidneys demonstrate prompt and equal nephrograms. The kidneys are normal in size, shape and configuration. There is no evidence of renal or ureteral mass. No renal or ureteral calculi are identified. There is no hydroureter or hydronephrosis. There is no evidence of intrinsic or extrinsic bladder mass. Images of the lung bases show no evidence of pleural or parenchymal mass. There are no pleural effusions. The bony structures are free of lytic or blastic lesions. Moderate osteopenia. Mild to moderate chronic compression deformities of the lower thoracic and mid lumbar vertebral bodies. IMPRESSION: Contrast filled distended small bowels. Transition zone at the level of the surgical anastomosis in the pelvis. Findings are suggestive of partial small bowel obstruction. Moderate amount of free pelvic fluid without bowel perforation or pneumatosis intestinalis. Cholelithiasis. Moderate intrahepatic and extrahepatic biliary ductal dilatation. Moderately dilated pancreatic duct. Thank you for your kind referral of this patient. . Electronically signed on Nov 13, 2017 1:08:17 AM EDT by: Logan Shirley M.D., Certified by ROBERT, MSK, Neuroradiology Progress Note: Labs ordered. CT Abdomen/Pelvis w/ contrast ordered. Patient given IV fluids. Disposition Discussed With : Chris Waite Doctor Will See Patient In The: Hospital Counseled Patient/Family Regarding: Diagnosis - Disposition Disposition: HOSPITALIZED Disposition Time: 01:29 Condition: STABLE Forms: [facility] (Turkish) - POA Present On Arrival: None - Clinical Impression Clinical Impression: Abdominal pain, Small bowel obstruction, partial - Scribe Statement The provider has reviewed the documentation as recorded by the Albin Austin Provider Attestation: All medical record entries made by the Albin were at my direction and personally dictated by me. I have reviewed the chart and agree that the record accurately reflects my personal performance of the history, physical exam, medical decision making, and the department course for this patient. I have also personally directed, reviewed, and agree with the discharge instructions and disposition.
[2017-11-12] MEDS ORDERED: Iodixanol 320 MG/ML 100 ML BOTTLE IV ONE (22:45)
--- NOTE | 2017-11-13 01:45 | CP.PCM.HP ---
<Alejandra Quiroga - Last Filed: 11/13/17 07:06> History of Present Illness - History of Present Illness History of Present Illness: History and Physical - Hospitalist Service CC: Diarrhea x 3 days HPI: Patient is a 77 year old female with past medical history of Hypertension, COPD, CHF, Colon cancer s/p resection who presents to the emergency dept for diarrhea x 3 days. Patient was recently discharge from the hospital on 11/08 after being admitted for COPD/CHF exacerbation. Patient states that she has been having 3-4 episodes of watery diarrhea a day. She denies any blood in the stool or foul smell. She does admit to having abdominal distention however she denies any abdominal pain. She is able to tolerate diet, denies any nausea/vomiting. + passing flatus. Denies fevers, chills, headaches, dizziness, cp, palpitations, sob, abdominal pain, urinary symptoms. PMD: Dr Galvan Allergies: NKDA Medications: See MAR Medical History: Hypertension, recurrent pedal edema, COPD, history of pneumonia in the past, Colon cancer recently diagnosed, and neuroendocrine type, adenocarcinoma type colon cancer noted, CHF Surgical History: cholecystectomy, Near-total colectomy, bilateral cataract surgery Social History: Former smoker, quit 2 years ago, denies alcohol or drug use; lives with her son Family History: Brother of lung cancer and also had diabetes and hypertension Present on Admission - Present on Admission Any Indicators Present on Admission: No Past Patient History - Infectious Disease Hx of Infectious Diseases: None - Past Medical History & Family History Past Medical History?: Yes - Past Social History Smoking Status: Former Smoker - CARDIAC Hx Congestive Heart Failure: Yes - PULMONARY Hx Asthma: Yes Hx Chronic Obstructive Pulmonary Disease (COPD): Yes Hx Pneumonia: Yes - NEUROLOGICAL Hx Neurological Disorder: No - HEENT Hx HEENT Problems: Yes Hx Cataracts: Yes (sx both eyes) - RENAL Hx Chronic Kidney Disease: No - ENDOCRINE/METABOLIC Hx Endocrine Disorders: No - HEMATOLOGICAL/ONCOLOGICAL Hx Blood Disorders: No - INTEGUMENTARY Hx Dermatological Problems: No - MUSCULOSKELETAL/RHEUMATOLOGICAL Hx Musculoskeletal Disorders: No Hx Falls: No - GASTROINTESTINAL Hx Gastrointestinal Disorders: Yes - GENITOURINARY/GYNECOLOGICAL Hx Genitourinary Disorders: No - PSYCHIATRIC Hx Anxiety: Yes Hx Substance Use: No - SURGICAL HISTORY Hx Section: Yes Other/Comment: stomach surgery-2017 - ANESTHESIA Hx Anesthesia: Yes Hx Anesthesia Reactions: No Hx Malignant Hyperthermia: No Meds Allergies/Adverse Reactions: Allergies Allergy/AdvReac Type Severity Reaction Status Date / Time No Known Allergies Allergy Verified 10/26/17 07:38 Physical Exam - Constitutional Appears: Non-toxic, No Acute Distress - Head Exam Head Exam: ATRAUMATIC, NORMAL INSPECTION, NORMOCEPHALIC - Eye Exam Eye Exam: EOMI, Normal appearance - ENT Exam ENT Exam: Mucous Membranes Moist - Respiratory Exam Respiratory Exam: Wheezes, NORMAL BREATHING PATTERN. absent: Rales, Rhonchi, Respiratory Distress - Cardiovascular Exam Cardiovascular Exam: REGULAR RHYTHM, +S1, +S2 - GI/Abdominal Exam GI & Abdominal Exam: Distended, Normal Bowel Sounds, Soft. absent: Rebound, Rigid Additional comments: Midline incision - c/d/i - Extremities Exam Extremities exam: Positive for: pedal pulses present. Negative for: calf tenderness Additional comments: +1 pitting edema - Back Exam Back exam: NORMAL INSPECTION - Neurological Exam Neurological exam: Alert, Oriented x3 - Psychiatric Exam Psychiatric exam: Normal Affect, Normal Mood - Skin Skin Exam: Dry, Normal Color, Warm Results - Vital Signs Recent Vital Signs: Last Vital Signs Temp 98.1 F 11/12/17 20:10 Pulse 95 H 11/13/17 01:25 Resp 20 11/13/17 01:25 BP 112/80 11/13/17 01:25 Pulse Ox 96 11/13/17 01:29 - Labs Result Diagrams: 11/12/17 21:14 11/12/17 21:14 Labs: Laboratory Results - last 24 hr 11/12/17 11/12/17 11/12/17 21:14 21:14 21:56 WBC 9.6 D RBC 3.45 L Hgb 10.3 L Hct 29.8 L MCV 86.2 MCH 29.7 MCHC 34.4 RDW 15.5 H Plt Count 321 D MPV 6.8 L Neut % (Auto) 74.8 Lymph % (Auto) 14.8 L [place] % (Auto) 9.7 Eos % (Auto) 0.2 Baso % (Auto) 0.5 Neut # (Auto) 7.2 H Lymph # (Auto) 1.4 [place] # (Auto) 0.9 H Eos # (Auto) 0.0 Baso # (Auto) 0.1 Sodium 129 L Potassium 4.3 Chloride 93 L Carbon Dioxide 20 L Anion Gap 20 BUN 11 Creatinine 0.7 Est GFR ( Amer) > 60 Est GFR (Non-Af Amer) > 60 Random Glucose 92 Calcium 8.9 Phosphorus 4.4 Magnesium 1.5 L Total Bilirubin 0.6 AST 27 ALT 29 Alkaline Phosphatase 84 Total Protein 6.8 Albumin 3.8 Globulin 3.0 Albumin/Globulin Ratio 1.3 Lipase 70 Assessment & Plan - Assessment and Plan (Free Text) Assessment: A/P: Patient is a 77 year old female with past medical history of COPD, CHF, Colon cancer s/p colectomy who presents with 3 day history of watery diarrhea. Partial Small Bowel Obstruction -Stable, afebrile -Will Admit inpatient -Continue NS @ 80cc/hr -Advance diet as tolerated -CT abd/pelvis: Contrast filled distended small bowels. Transition zone at the level of the surgical anastomosis in the pelvis. Findings are suggestive of partial small bowel obstruction. Moderate amount of free pelvic fluid without bowel perforation or pneumatosis intestinalis. Cholelithiasis. Moderate intrahepatic and extrahepatic biliary ductal dilatation. Moderately dilated pancreatic duct (official read pending) -General Surgery on consult, Dr Mccurdy, help appreciated Diarrhea -Patient was previously on Cefepime for possible pneumonia on last admission -F/U stool culture, ova/parasites, stool leukocytes, c diff -Continue IV hydration Hyponatremia -Sodium 129 on admission -Continue NS at 80 cc/hr -F/U am CMP Hypomagnesemia -Mg was 1.5 -Repleted with Mag sulfate 1 gm IVPB x 2 COPD -Duonebs Q6H prn shortness of breath -Continue spiriva -Supplemental O2 prn GI/DVT ppx: -Pepcid 20mg PO BID -SCDs Plan discussed with Dr Mariann Quiroga DO PGY-2 <Chris Waite - Last Filed: 11/13/17 10:22> Results - Vital Signs Recent Vital Signs: Last Vital Signs Temp 98.3 F 11/13/17 03:22 Pulse 101 H 11/13/17 03:22 Resp 20 11/13/17 03:22 BP 123/82 11/13/17 03:22 Pulse Ox 98 11/13/17 03:22 - Labs Result Diagrams: 11/13/17 07:19 11/13/17 07:19 Labs: Laboratory Results - last 24 hr 11/12/17 11/12/17 11/12/17 21:14 21:14 21:56 WBC 9.6 D RBC 3.45 L Hgb 10.3 L Hct 29.8 L MCV 86.2 MCH 29.7 MCHC 34.4 RDW 15.5 H Plt Count 321 D MPV 6.8 L Neut % (Auto) 74.8 Lymph % (Auto) 14.8 L [place] % (Auto) 9.7 Eos % (Auto) 0.2 Baso % (Auto) 0.5 Neut # (Auto) 7.2 H Lymph # (Auto) 1.4 [place] # (Auto) 0.9 H Eos # (Auto) 0.0 Baso # (Auto) 0.1 Sodium 129 L Potassium 4.3 Chloride 93 L Carbon Dioxide 20 L Anion Gap 20 BUN 11 Creatinine 0.7 Est GFR ( Amer) > 60 Est GFR (Non-Af Amer) > 60 Random Glucose 92 Calcium 8.9 Phosphorus 4.4 Magnesium 1.5 L Total Bilirubin 0.6 AST 27 ALT 29 Alkaline Phosphatase 84 Total Protein 6.8 Albumin 3.8 Globulin 3.0 Albumin/Globulin Ratio 1.3 Lipase 70 11/13/17 11/13/17 07:19 07:19 WBC 9.4 RBC 3.55 L Hgb 10.4 L Hct 30.7 L MCV 86.4 MCH 29.2 MCHC 33.8 RDW 16.1 H Plt Count 337 MPV 6.7 L Neut % (Auto) 71.3 Lymph % (Auto) 19.8 L [place] % (Auto) 7.7 Eos % (Auto) 0.7 Baso % (Auto) 0.5 Neut # (Auto) 6.7 Lymph # (Auto) 1.9 [place] # (Auto) 0.7 Eos # (Auto) 0.1 Baso # (Auto) 0.0 Sodium 129 L Potassium 3.7 Chloride 95 L Carbon Dioxide 21 L Anion Gap 16 BUN 9 Creatinine 0.5 L Est GFR ( Amer) > 60 Est GFR (Non-Af Amer) > 60 Random Glucose 73 Calcium 8.3 L Phosphorus 3.7 Magnesium 1.6 Total Bilirubin 0.9 AST 23 ALT 29 Alkaline Phosphatase 76 Total Protein 6.3 Albumin 3.3 L Globulin 3.0 Albumin/Globulin Ratio 1.1 Lipase Assessment & Plan - Date & Time Date: 11/13/17 (I have seen and examined the patient. I agree with the findings and plan of care as documented by Dr. Quiroga. Patient with partial small bowel obstruction. Consult to surgery. Medical management for now. Advance diet as tolerated. Also with hyponatremia. NS IVF. Recheck. Monitor for acute changes.) Time: 10:20 Attending/Attestation - Attestation I have personally seen and examined this patient.: Yes I have fully participated in the care of the patient.: Yes I have reviewed all pertinent clinical information: Yes
[2017-11-13] MEDS ORDERED: Sodium Chloride 0.9% 1,000 ML IV ONE (02:23)
[2017-11-13] MEDS ORDERED: Albuterol-Ipratrop 3 mg / 0.5 (3 ml) UD INH PRN (02:35)
[2017-11-13] MEDS ORDERED: Sodium Chloride 0.9% 1,000 ML ONE (02:50)
[2017-11-13 07:34] LABS: BASO % 0.5 % (0.0-2.0); EOS # 0.1 K/uL (0.0-0.7); EOS % 0.7 % (0.0-4.0); HEMOGLOBIN 10.4 g/dL (11.0-16.0); LYMPH # 1.9 K/uL (1.0-4.3); LYMPH % 19.8 % (20.0-40.0); MEAN CELL VOLUME 86.4 fL (81.0-99.0); MEAN CORPUSCULAR HEMOGLOBIN 29.2 pg (27.0-31.0); MEAN CORPUSCULAR HGB CONC 33.8 g/dL (33.0-37.0); MEAN PLATELET VOLUME 6.7 fL (7.2-11.7); MONO # 0.7 K/uL (0.0-0.8); MONO % 7.7 % (0.0-10.0); NEUT # 6.7 K/uL (1.8-7.0); NEUT % 71.3 % (50.0-75.0); RBC 3.55 Mil/uL (3.80-5.20); RED CELL DISTRIBUTION WIDTH 16.1 % (11.5-14.5); WHITE BLOOD COUNT 9.4 K/uL (4.8-10.8)
[2017-11-13 08:02] LABS: ALB/GLOB RATIO 1.1 (1.0-2.1); ALBUMIN 3.3 g/dL (3.5-5.0); ALT/SGPT 29 U/L (9-52); AST/SGOT 23 U/L (14-36); BLOOD UREA NITROGEN 9 mg/dL (7-17); CALCIUM 8.3 mg/dl (8.6-10.4); GFR NON-AFRICAN AMERICAN > 60
--- NOTE | 2017-11-13 08:35 | CP.PCM.CON ---
History of Present Illness - History of Present Illness History of Present Illness: Consult note for Dr. Nichole. Patient was suspected of SBO. Patient is a poor historian and HPI was supplemented with notes from other visits/providers. Patient is a 77F with PMHx of COPD, asthma, and colon cancer presented yesterday 10/12/17 with SOB and diarrhea. She reports the SOB started 2 days ago and the diarrhea persists now for 1 week. She says she had the SOB before due to her asthma and she has been having diarrhea post operatively. Pt had near total colectomy recently for large bowel obstruction 2/2 colon CA. path came back as neuroendocrine tumor. Episodes of diarrhea decreased today. 2 episodes today. She describes her bowel movements as watery brown, she denies blood in her stool. Her last bowel movement was today approximately at 8am. She says nothing makes the diarrhea worse or better. Pt was on ABX post op. She also complains of lightheadedness and a chronic dry cough. Denies headache, chest pain, abdominal pain, N/V, constipation, weakness, fatigue, fevers, chills, dysuria. PMHx: COPD, asthma, pleural effusion, pneumonia, respiratory distress, dyspnea, lung cancer, colon cancer, neuroendocrine cancer, colonic mass, small bowel obstruction, GI bleed, anemia, SIADH, HTN. SxHx: cholecystectomy, near total colectomy, and B/L cataract surgery. FamHx: Brother of lung cancer. He also had DM and HTN. SocHx: Denies current tobacco, alcohol, and drug use. She was a former smoker of 1 year, smoked 1/2 pack per day, and quit 4 months ago. She says she smoked once in a while before that. She drank alcohol when she was younger but it was very infrequent. Allergies: NKDA Meds:Albuterol/Ipratropium, Famotidine, NaCl 0.9%, Tiotropium bromide, Iodixanol, and Iohexol. Review of Systems - Constitutional Constitutional: absent: Chills, Fever, Headache, Lethargy, Weight Gain, Weight Loss - Cardiovascular Cardiovascular: Lightheadedness. absent: Edema, Leg Edema, Palpitations - Respiratory Respiratory: Cough - Gastrointestinal Gastrointestinal: Diarrhea. absent: Abdominal Pain, Constipation, Hematochezia, Nausea, Vomiting - Genitourinary Genitourinary: absent: Dysuria - Endocrine Endocrine: absent: Cold Intolorance, Fatigue, Heat Intolorance Past Patient History - Infectious Disease Hx of Infectious Diseases: None - Past Medical History & Family History Past Medical History?: Yes - Past Social History Smoking Status: Former Smoker Alcohol: None Drugs: Denies Home Situation {Lives}: With Family - CARDIAC Hx Congestive Heart Failure: Yes - PULMONARY Hx Asthma: Yes Hx Chronic Obstructive Pulmonary Disease (COPD): Yes Hx Pneumonia: Yes - NEUROLOGICAL Hx Neurological Disorder: No - HEENT Hx HEENT Problems: Yes Hx Cataracts: Yes (sx both eyes) - RENAL Hx Chronic Kidney Disease: No - ENDOCRINE/METABOLIC Hx Endocrine Disorders: No - HEMATOLOGICAL/ONCOLOGICAL Hx Blood Disorders: No - INTEGUMENTARY Hx Dermatological Problems: No - MUSCULOSKELETAL/RHEUMATOLOGICAL Hx Musculoskeletal Disorders: No Hx Falls: No - GASTROINTESTINAL Hx Gastrointestinal Disorders: Yes - GENITOURINARY/GYNECOLOGICAL Hx Genitourinary Disorders: No - PSYCHIATRIC Hx Anxiety: Yes Hx Substance Use: No - SURGICAL HISTORY Hx Section: Yes Other/Comment: stomach surgery-2017 - ANESTHESIA Hx Anesthesia: Yes Hx Anesthesia Reactions: No Hx Malignant Hyperthermia: No Meds Allergies/Adverse Reactions: Allergies Allergy/AdvReac Type Severity Reaction Status Date / Time No Known Allergies Allergy Verified 10/26/17 07:38 - Medications Medications: Current Medications Albuterol/Ipratropium (Duoneb 3 Mg/0.5 Mg (3 Ml) Ud) 3 ml INH RQ6 PRN PRN Reason: Shortness of Breath Famotidine (Pepcid) 20 mg PO BID GAEL Sodium Chloride (Sodium Chloride 0.9%) 1,000 mls @ 80 mls/hr IV .[id number] ONE Stop: 11/13/17 09:48 Last Admin: 11/13/17 02:40 Dose: 80 mls/hr Tiotropium [place] (Spiriva) 18 mcg INH RQ24 GAEL Physical Exam - Constitutional Appears: No Acute Distress - Head Exam Head Exam: ATRAUMATIC, NORMOCEPHALIC - Eye Exam Eye Exam: EOMI, Normal appearance, PERRL Pupil Exam: NORMAL ACCOMODATION, PERRL - ENT Exam ENT Exam: Mucous Membranes Moist, Normal Exam - Neck Exam Neck exam: Positive for: Normal Inspection - Respiratory Exam Respiratory Exam: NORMAL BREATHING PATTERN - Cardiovascular Exam Cardiovascular Exam: Tachycardia - GI/Abdominal Exam GI & Abdominal Exam: Distended, Normal Bowel Sounds, Soft. absent: Hernia, Tenderness Additional comments: well healing incision. - Exam Exam: NORMAL INSPECTION - Extremities Exam Extremities exam: Positive for: full ROM, normal inspection - Back Exam Back exam: NORMAL INSPECTION - Neurological Exam Neurological exam: Alert, CN II-XII Intact, Normal Gait, Oriented x3, Reflexes Normal - Psychiatric Exam Psychiatric exam: Normal Affect, Normal Mood - Skin Skin Exam: Dry, Intact, Normal Color, Warm Results - Vital Signs Recent Vital Signs: Last Vital Signs Temp 98.3 F 11/13/17 03:22 Pulse 101 H 11/13/17 03:22 Resp 20 11/13/17 03:22 BP 123/82 11/13/17 03:22 Pulse Ox 98 11/13/17 03:22 - Labs Result Diagrams: 11/13/17 07:19 11/13/17 07:19 Labs: Laboratory Results - last 24 hr 11/12/17 11/12/17 11/12/17 21:14 21:14 21:56 WBC 9.6 D RBC 3.45 L Hgb 10.3 L Hct 29.8 L MCV 86.2 MCH 29.7 MCHC 34.4 RDW 15.5 H Plt Count 321 D MPV 6.8 L Neut % (Auto) 74.8 Lymph % (Auto) 14.8 L [place] % (Auto) 9.7 Eos % (Auto) 0.2 Baso % (Auto) 0.5 Neut # (Auto) 7.2 H Lymph # (Auto) 1.4 [place] # (Auto) 0.9 H Eos # (Auto) 0.0 Baso # (Auto) 0.1 Sodium 129 L Potassium 4.3 Chloride 93 L Carbon Dioxide 20 L Anion Gap 20 BUN 11 Creatinine 0.7 Est GFR ( Amer) > 60 Est GFR (Non-Af Amer) > 60 Random Glucose 92 Calcium 8.9 Phosphorus 4.4 Magnesium 1.5 L Total Bilirubin 0.6 AST 27 ALT 29 Alkaline Phosphatase 84 Total Protein 6.8 Albumin 3.8 Globulin 3.0 Albumin/Globulin Ratio 1.3 Lipase 70 11/13/17 11/13/17 07:19 07:19 WBC 9.4 RBC 3.55 L Hgb 10.4 L Hct 30.7 L MCV 86.4 MCH 29.2 MCHC 33.8 RDW 16.1 H Plt Count 337 MPV 6.7 L Neut % (Auto) 71.3 Lymph % (Auto) 19.8 L [place] % (Auto) 7.7 Eos % (Auto) 0.7 Baso % (Auto) 0.5 Neut # (Auto) 6.7 Lymph # (Auto) 1.9 [place] # (Auto) 0.7 Eos # (Auto) 0.1 Baso # (Auto) 0.0 Sodium 129 L Potassium 3.7 Chloride 95 L Carbon Dioxide 21 L Anion Gap 16 BUN 9 Creatinine 0.5 L Est GFR ( Amer) > 60 Est GFR (Non-Af Amer) > 60 Random Glucose 73 Calcium 8.3 L Phosphorus 3.7 Magnesium 1.6 Total Bilirubin 0.9 AST 23 ALT 29 Alkaline Phosphatase 76 Total Protein 6.3 Albumin 3.3 L Globulin 3.0 Albumin/Globulin Ratio 1.1 Lipase Assessment & Plan (1) Small bowel obstruction, partial Status: Acute (2) Abdominal distension Status: Acute - Assessment and Plan (Free Text) Assessment: s/p subtotal colectomy for colon CA presented w diarrhea. Patient had a subtotal colectomy which can be the cause of the diarrhea. CT of abdomen/pelvis reads partial obstruction. No surgery intervention needed at this time. Colace for stool bulking agent. Imodium of diarrhea For any further questions/concerns please re-consult surgical team. Follow up on C. difficile culture. Pt seen and examined. BASHIR Nichole
[2017-11-13] MEDS: Tiotropium 18 mcg Cap For Inhalation INH SCH (10:12)
--- NOTE | 2017-11-13 15:43 | CT ---
Date of service: 11/12/2017 PROCEDURE: CT Abdomen and Pelvis with contrast HISTORY: Lower abdominal pain with distention COMPARISON: Comparison made with prior CT chest 10/27/2017 which image the upper abdomen. Comparison also made with prior CT scan of the abdomen and pelvis dated 10/08/2017. TECHNIQUE: Contrast dose: 100 cc Visipaque 320 Radiation dose: Total exam DLP = 177.76 mGy-cm. This CT exam was performed using one or more of the following dose reduction techniques: Automated exposure control, adjustment of the mA and/or kV according to patient size, and/or use of iterative reconstruction technique. FINDINGS: LOWER THORAX: Interval resolution previously noted left-sided effusion and left basilar atelectasis. The small right-sided effusion also resolved. Heart size within range of normal. No significant pericardial effusion. Small hiatal hernia. LIVER: Liver exhibits normal size measuring approximately 14 cm in CC dimension. Mild fatty hepatic infiltration. Minimal central intrahepatic biliary dilatation. Portal and splenic veins are opacified. Suspect tiny calcification left lobe liver GALLBLADDER AND BILE DUCTS: There is a small radiopaque density within the dependent portion of the gallbladder probably likely representing intraluminal gallbladder calculi versus small polyp. PANCREAS: Pancreas appears slightly atrophic and fatty replaced. No pancreatic masses or collections.. SPLEEN: Spleen exhibits normal size measuring approximately 10.7 cm in AP dimension. No splenic masses or collections. ADRENALS: Mildly prominent bilateral adrenal glands; rule out hyperplasia. KIDNEYS AND URETERS: There a small rounded low-attenuation lesion upper pole left kidney that probably represents a hyperdense cyst with Hounsfield units in the upper teens. No evidence of nephrolithiasis or hydronephrosis.. VASCULATURE: Fairly extensive on partially calcified plaque seen along the abdominal aorta including the origins of the celiac axis, SMA as well as both renal arteries right greater than left. BOWEL: Evaluation of the bowel is somewhat limited due to incomplete opacification. Stomach is distended with oral contrast material and air. Multiple distended fluid and air-filled loops of small bowel present. Findings may represent a generalized ileus however the possibility of there appears to be an anastomosis along the proximal sigmoid colon region. Clinic correlation with surgical history. APPENDIX: Appendix is not seen with complete certainty on this study. The however no obvious inflammatory changes right lower quadrant of the abdomen.. PERITONEUM: No gross free intraperitoneal air. Moderate amount of free fluid is present within the pelvis LYMPH NODES: Unremarkable. No enlarged lymph nodes. BLADDER: Urinary bladder is collapsed and therefore cannot be adequately evaluated. Wall thickening likely due to collapse however correlation with urinalysis recommended to exclude UTI REPRODUCTIVE: Hysterectomy. BONES: Mild multilevel degenerative spondylosis of the lower thoracic and lumbar spine. Multilevel [place] endplate deformities most notably affecting the superior L4 endplate unchanged from prior exam OTHER FINDINGS: None. IMPRESSION: Cholelithiasis and/or gallbladder polyps. Postoperative resection previously noted mass lesion which was located along the sigmoid colon with residual anastomotic suture line proximal sigmoid colon region.. Multiple distended loops of fluid and air-filled small bowel; rule out ileus of versus intermittent on or partial obstruction. Moderate amount of free fluid is present within the pelvis. Mild fatty hepatic infiltration. Mild central intrahepatic biliary ductal dilatation. See above discussion for additional details and findings.
[2017-11-13] MEDS: Magnesium Sulfate 1 gm in D5W 1 GM/100 ML BAG IVPB SCH ×2 (18:31→19:10)
--- NOTE | 2017-11-13 20:20 | CP.PCM.PN ---
Subjective - Date & Time of Evaluation Date of Evaluation: 11/13/17 Time of Evaluation: 20:19 - Subjective Subjective: Patient today feeling well. No nausea no vomiting abdominal pain is negative. Diarrhea still noted On examination: Vital signs stable. Chest good air entry regular heart sound abdominal minute but tenderness noted Edema negative Female with a COPD, status post cholecystectomy. Patient also having low sodium level. Will continue the current treatment. Monitor the sodium level tomorrow. Objective - Vital Signs/Intake and Output Vital Signs (last 24 hours): Temp Pulse Resp BP Pulse Ox 97.5 F L 101 H 20 141/67 95 11/13/17 16:07 11/13/17 16:07 11/13/17 16:07 11/13/17 16:07 11/13/17 16:07 - Medications Medications: Current Medications Albuterol/Ipratropium (Duoneb 3 Mg/0.5 Mg (3 Ml) Ud) 3 ml INH RQ6 PRN PRN Reason: Shortness of Breath Famotidine (Pepcid) 20 mg PO BID [facility] Last Admin: 11/13/17 17:16 Dose: 20 mg Tiotropium [place] (Spiriva) 18 mcg INH RQ24 GAEL Last Admin: 11/13/17 10:12 Dose: 18 mcg - Labs Labs: 11/13/17 07:19 11/13/17 07:19
[2017-11-13] MEDS: Enoxaparin 30 mg Syringe SC SCH (21:35)
[2017-11-14 08:02] LABS: BASO % 0.6 % (0.0-2.0); EOS % 0.7 % (0.0-4.0); HEMOGLOBIN 9.3 g/dL (11.0-16.0); LYMPH # 1.3 K/uL (1.0-4.3); LYMPH % 20.1 % (20.0-40.0); MEAN CELL VOLUME 86.9 fL (81.0-99.0); MEAN CORPUSCULAR HEMOGLOBIN 30.1 pg (27.0-31.0); MEAN CORPUSCULAR HGB CONC 34.6 g/dL (33.0-37.0); MEAN PLATELET VOLUME 6.8 fL (7.2-11.7); MONO # 0.4 K/uL (0.0-0.8); MONO % 6.7 % (0.0-10.0); NEUT # 4.7 K/uL (1.8-7.0); NEUT % 71.9 % (50.0-75.0); NRBC % 0.1 % (0.0-2.0); RBC 3.11 Mil/uL (3.80-5.20); RED CELL DISTRIBUTION WIDTH 16.1 % (11.5-14.5); WHITE BLOOD COUNT 6.5 K/uL (4.8-10.8)
[2017-11-14 08:43] LABS: ALB/GLOB RATIO 1.1 (1.0-2.1); ALT/SGPT 29 U/L (9-52); AST/SGOT 18 U/L (14-36); BLOOD UREA NITROGEN 10 mg/dL (7-17); CALCIUM 8.3 mg/dl (8.6-10.4); GFR NON-AFRICAN AMERICAN > 60
[2017-11-14] MEDS: Enoxaparin 30 mg Syringe SC SCH ×2 (09:33→21:34)
--- NOTE | 2017-11-14 21:36 | CP.PCM.PN ---
Subjective - Date & Time of Evaluation Date of Evaluation: 11/14/17 Time of Evaluation: 21:36 - Subjective Subjective: Patient is now feeling well. She has no chest pain. Denies any nausea vomiting. Eating well. No diarrhea noted On examination: Vital signs stable. Chest good air entry Wheezing mildly noted Chest otherwise regular Abdomen soft. Edema 1+ Assessment: 77-year-old female with a history of COPD. Home oxygen. Colon cancer. Status post a colectomy. Edema pneumonia anasarca. Will continue the current treatment. Physical therapy and exercise and will follow the patient Objective - Vital Signs/Intake and Output Vital Signs (last 24 hours): Temp Pulse Resp BP Pulse Ox 98.9 F 89 20 133/72 98 11/14/17 15:40 11/14/17 15:40 11/14/17 15:40 11/14/17 15:40 11/14/17 15:40 - Medications Medications: Current Medications Albuterol/Ipratropium (Duoneb 3 Mg/0.5 Mg (3 Ml) Ud) 3 ml INH RQ6 PRN PRN Reason: Shortness of Breath Enoxaparin Sodium (Lovenox) 30 mg SC Q12 [facility] Last Admin: 11/14/17 21:34 Dose: 30 mg Famotidine (Pepcid) 20 mg PO BID GAEL Last Admin: 11/14/17 17:47 Dose: 20 mg Tiotropium [place] (Spiriva) 18 mcg INH RQ24 [facility] Last Admin: 11/13/17 10:12 Dose: 18 mcg - Labs Labs: 11/14/17 07:47 11/14/17 07:47
[2017-11-15 09:07] LABS: BASO % 0.8 % (0.0-2.0); EOS % 0.7 % (0.0-4.0); HEMOGLOBIN 9.3 g/dL (11.0-16.0); LYMPH # 1.3 K/uL (1.0-4.3); MEAN CELL VOLUME 87.1 fL (81.0-99.0); MEAN CORPUSCULAR HEMOGLOBIN 29.6 pg (27.0-31.0); MEAN PLATELET VOLUME 6.8 fL (7.2-11.7); MONO # 0.4 K/uL (0.0-0.8); MONO % 8.7 % (0.0-10.0); NEUT # 2.7 K/uL (1.8-7.0); NEUT % 60.8 % (50.0-75.0); RBC 3.14 Mil/uL (3.80-5.20); WHITE BLOOD COUNT 4.5 K/uL (4.8-10.8)
[2017-11-15 09:11] LABS: ALB/GLOB RATIO 1.1 (1.0-2.1); ALBUMIN 3.2 g/dL (3.5-5.0); ALT/SGPT 28 U/L (9-52); AST/SGOT 17 U/L (14-36); BLOOD UREA NITROGEN 9 mg/dL (7-17); CALCIUM 8.6 mg/dl (8.6-10.4); GFR NON-AFRICAN AMERICAN > 60
[2017-11-15] MEDS: Enoxaparin 30 mg Syringe SC SCH ×2 (10:59→22:08)
--- NOTE | 2017-11-15 21:30 | CP.PCM.PN ---
Subjective - Date & Time of Evaluation Date of Evaluation: 11/15/17 Time of Evaluation: 21:28 - Subjective Subjective: Patient admitted with increasing abdominal pain, diarrhea. Also shortness of breath. But now she is able to walk better. But still having poor intake. No nausea no vomiting, diarrhea mildly positive. So far the workup is negative. Clinical examination is unremarkable except a tenderness in the left lower quadrant. Will continue the current treatment. Will continue the physical therapy. I recommended for subacute rehabilitation. But patient is currently refusing a Physical evaluation and will follow-up the patient Objective - Vital Signs/Intake and Output Vital Signs (last 24 hours): Temp Pulse Resp BP Pulse Ox 98.4 F 88 20 102/52 L 98 11/15/17 16:00 11/15/17 16:00 11/15/17 16:00 11/15/17 16:00 11/15/17 16:00 Intake and Output: 11/15/17 11/16/17 18:59 06:59 Intake Total 480 Balance 480 - Medications Medications: Current Medications Albuterol/Ipratropium (Duoneb 3 Mg/0.5 Mg (3 Ml) Ud) 3 ml INH RQ6 PRN PRN Reason: Shortness of Breath Enoxaparin Sodium (Lovenox) 30 mg SC Q12 [facility] Last Admin: 11/15/17 10:59 Dose: 30 mg Famotidine (Pepcid) 20 mg PO BID GAEL Last Admin: 11/15/17 18:25 Dose: 20 mg Tiotropium [place] (Spiriva) 18 mcg INH RQ24 [facility] Last Admin: 11/13/17 10:12 Dose: 18 mcg - Labs Labs: 11/15/17 08:50 11/15/17 08:50
[2017-11-16 08:29] LABS: BASO % 0.7 % (0.0-2.0); EOS % 0.7 % (0.0-4.0); HEMOGLOBIN 9.2 g/dL (11.0-16.0); LYMPH # 1.4 K/uL (1.0-4.3); LYMPH % 26.7 % (20.0-40.0); MEAN CORPUSCULAR HEMOGLOBIN 29.3 pg (27.0-31.0); MEAN CORPUSCULAR HGB CONC 33.6 g/dL (33.0-37.0); MEAN PLATELET VOLUME 6.6 fL (7.2-11.7); MONO # 0.5 K/uL (0.0-0.8); MONO % 8.8 % (0.0-10.0); NEUT # 3.3 K/uL (1.8-7.0); NEUT % 63.1 % (50.0-75.0); RBC 3.15 Mil/uL (3.80-5.20); RED CELL DISTRIBUTION WIDTH 16.3 % (11.5-14.5); WHITE BLOOD COUNT 5.3 K/uL (4.8-10.8)
[2017-11-16 08:46] LABS: ALB/GLOB RATIO 1.2 (1.0-2.1); ALBUMIN 3.3 g/dL (3.5-5.0); ALT/SGPT 25 U/L (9-52); AST/SGOT 15 U/L (14-36); BLOOD UREA NITROGEN 13 mg/dL (7-17); CALCIUM 9.1 mg/dl (8.6-10.4); GFR NON-AFRICAN AMERICAN > 60
[2017-11-16] MEDS: Enoxaparin 30 mg Syringe SC SCH ×2 (09:54→21:59)
[2017-11-17 08:08] VITALS: RESP 20
[2017-11-17 08:58] LABS: BASO # 0.1 K/uL (0.0-0.2); BASO % 1.3 % (0.0-2.0); EOS # 0.1 K/uL (0.0-0.7); EOS % 1.2 % (0.0-4.0); LYMPH # 1.4 K/uL (1.0-4.3); LYMPH % 27.9 % (20.0-40.0); MEAN CELL VOLUME 87.5 fL (81.0-99.0); MEAN CORPUSCULAR HEMOGLOBIN 29.7 pg (27.0-31.0); MEAN CORPUSCULAR HGB CONC 33.9 g/dL (33.0-37.0); MEAN PLATELET VOLUME 7.6 fL (7.2-11.7); MONO # 0.5 K/uL (0.0-0.8); MONO % 8.7 % (0.0-10.0); NEUT # 3.2 K/uL (1.8-7.0); NEUT % 60.9 % (50.0-75.0); NRBC % 0.1 % (0.0-2.0); RBC 3.04 Mil/uL (3.80-5.20); RED CELL DISTRIBUTION WIDTH 16.4 % (11.5-14.5); WHITE BLOOD COUNT 5.2 K/uL (4.8-10.8)
[2017-11-17 09:31] LABS: ALBUMIN 3.2 g/dL (3.5-5.0); ALT/SGPT 20 U/L (9-52); AST/SGOT 38 U/L (14-36); BLOOD UREA NITROGEN 12 mg/dL (7-17); CALCIUM 8.5 mg/dl (8.6-10.4); GFR NON-AFRICAN AMERICAN > 60
[2017-11-17] MEDS: Enoxaparin 30 mg Syringe SC SCH (09:31)
[2017-11-17] MEDS: Tiotropium 18 mcg Cap For Inhalation INH SCH (10:34)
[2017-11-17] MEDS ORDERED: Influenza Vaccine 60 MCG/0.5 ML SYR (3 yr & up) IM ONE (13:00)
[2017-11-17] MEDS ORDERED: Magnesium Oxide 400 mg Tab UD PO ONE (13:00)
[2017-11-17 16:45] VITALS: BP 90/62; PULSE 91; TEMP 97.6; O2SAT 97
== END 2017-11-17 17:18 | disposition home or self-care (01) | DRG 389 ==
LOC: C.ER 20:01 → OBSVTOIN 11-13 01:30 → C.5S 11-13 01:30
PROVIDERS: ADMIT Internal Medicine; ATTEND Internal Medicine
DX: K56.600 Partial intestinal obstruction, unspecified as to cause (principal); E87.1 Hypo-osmolality and hyponatremia; J44.0 Chronic obstructive pulmonary disease with (acute) lower respiratory infection; Z87.891 Personal history of nicotine dependence; Z85.038 Personal history of other malignant neoplasm of large intestine; Z85.118 Personal history of other malignant neoplasm of bronchus and lung; E83.42 Hypomagnesemia; E11.9 Type 2 diabetes mellitus without complications; D3A.8 Other benign neuroendocrine tumors; I11.0 Hypertensive heart disease with heart failure; I50.9 Heart failure, unspecified; K80.20 Calculus of gallbladder without cholecystitis without obstruction

== ENCOUNTER 2017-11-25 06:42 | Inpatient (IN) | payer MEDICARE, MEDICAID ==
[2017-11-25 06:42] VITALS: BMI 19.5
[2017-11-25] MEDS ORDERED: Albuterol-Ipratrop 3 mg / 0.5 (3 ml) UD ONE (07:00)
[2017-11-25] MEDS ORDERED: Albuterol-Ipratrop 3 mg / 0.5 (3 ml) UD INH STA (07:15)
[2017-11-25] MEDS ORDERED: Sodium Chloride 0.9% Inh Soln (3mL) UD INH ONE (07:21)
--- NOTE | 2017-11-25 07:24 | C.PDOC ---
History Of Present Illness 77 year old female with a history of COPD and colon cancer (admitted on 11-18-17) presents to the emergency department with complaints of worsening shortness of breath. Patient is being treated with home oxygen, and reports no improvement of symptoms after nebulizer treatment at home. She denies fever, chills, or chest pain. Patient recently had colon surgery. She denies nausea, vomiting, or abdominal pain. Time Seen by Provider: 11/25/17 07:03 Chief Complaint (Nursing): Shortness Of Breath History Per: Patient History/Exam Limitations: no limitations Onset/Duration Of Symptoms: Hrs Current Symptoms Are (Timing): Still Present Associated Symptoms: Other (shortness of breath). denies: Fever, Chills, Chest Pain Past Medical History Reviewed: Historical Data, Nursing Documentation, Vital Signs Vital Signs: Last Vital Signs Temp 98.6 F 11/25/17 06:49 Pulse 103 H 11/25/17 06:49 Resp 22 11/25/17 07:02 BP 95/67 L 11/25/17 06:49 Pulse Ox 100 11/25/17 06:49 - Medical History PMH: Anxiety, Asthma, CHF, COPD, HTN, Malignancy (colon CA s/p resection), Pneumonia Denies: Chronic Kidney Disease Other Surgeries: Colon surgery - [facility] Procedures ALCOHOL DETOXIFICATION (12/30/12) DRAINAGE OF LEFT PLEURAL CAVITY, PERCUTANEOUS APPROACH (10/26/17) EXCISION OF CECUM, OPEN APPROACH (10/09/17) EXCISION OF SIGMOID COLON, OPEN APPROACH (10/09/17) NON-INVASIVE MECHANICAL VENTILATION (12/30/12) Family History: States: No Known Family Hx - Social History Hx Tobacco Use: Yes Hx Alcohol Use: No Hx Substance Use: No - Immunization History Hx Tetanus Toxoid Vaccination: No (unk) Hx Influenza Vaccination: No Hx Pneumococcal Vaccination: No (unk) Review Of Systems Constitutional: Negative for: Fever, Chills Cardiovascular: Negative for: Chest Pain Respiratory: Positive for: Shortness of Breath Gastrointestinal: Negative for: Nausea, Vomiting, Abdominal Pain Physical Exam - Physical Exam Appears: Non-toxic, No Acute Distress, Unkempt, Other (petite, elderly woman) Skin: Warm, Dry, Other (increased turgor) Head: Atraumatic, Normacephalic Eye(s): bilateral: Normal Inspection Nose: Normal Oral Mucosa: Dry Neck: Normal, Supple Chest: Symmetrical, No Deformity Cardiovascular: Rhythm Regular (tachycardic), No Murmur Respiratory: Wheezing (b/l expiratory wheezing) Gastrointestinal/Abdominal: Normal Exam, Soft, No Tenderness, No Guarding, No Rebound Extremity: Normal ROM Neurological/Psych: Oriented x3, Normal Speech, Normal Cognition ED Course And Treatment - Laboratory Results Result Diagrams: 11/25/17 07:42 ECG Rhythm: Sinus Rhythm ECG Interpretation: Normal Rate From EC O2 Sat by Pulse Oximetry: 100 (RA) Pulse Ox Interpretation: Normal Progress Note: Plan: EKG. CMP. CBC. CXR. Duoneb 3ml INH. NaCl IV Fluids. Oxygen Therapy Medical Decision Making Medical Decision Making: pt with persistent wheezing despite treatments at home, just discharged. pt still wheezing after tx in ed. discussed with Dr Glover, will admit to his service. Disposition Discussed With : Jose Rafael Glover Doctor Will See Patient In The: Hospital - Disposition Disposition: HOSPITALIZED Disposition Time: 08:11 Condition: GOOD Forms: [facility] (Khmer) - Clinical Impression Clinical Impression: COPD exacerbation - PA / PLANT P[employer]ER / Resident Statement MD/DO has reviewed & agrees with the documentation as recorded. - Scribe Statement The provider has reviewed the documentation as recorded by the Scribe (Christopher Saenz) All medical record entries made by the Scribe were at my direction and personally dictated by me. I have reviewed the chart and agree that the record accurately reflects my personal performance of the history, physical exam, medical decision making, and the department course for this patient. I have also personally directed, reviewed, and agree with the discharge instructions and disposition.
[2017-11-25 07:49] LABS: BASO % 0.4 % (0.0-2.0); EOS # 0.1 K/uL (0.0-0.7); EOS % 1.1 % (0.0-4.0); HEMOGLOBIN 10.2 g/dL (11.0-16.0); LYMPH % 21.2 % (20.0-40.0); MEAN CELL VOLUME 85.6 fL (81.0-99.0); MEAN CORPUSCULAR HEMOGLOBIN 28.3 pg (27.0-31.0); MEAN CORPUSCULAR HGB CONC 33.1 g/dL (33.0-37.0); MEAN PLATELET VOLUME 6.3 fL (7.2-11.7); MONO % 10.4 % (0.0-10.0); NEUT # 6.4 K/uL (1.8-7.0); NEUT % 66.9 % (50.0-75.0); RBC 3.6 Mil/uL (3.80-5.20); RED CELL DISTRIBUTION WIDTH 14.7 % (11.5-14.5); WHITE BLOOD COUNT 9.6 K/uL (4.8-10.8)
[2017-11-25] MEDS ORDERED: MethylPREDNISolone 40 mg Vial IVP STA (08:10)
[2017-11-25] MEDS: Sodium Chloride 0.9% 1,000 ML IV SCH (08:15)
[2017-11-25 08:20] LABS: ALB/GLOB RATIO 1.2 (1.0-2.1); ALBUMIN 3.6 g/dL (3.5-5.0); ALT/SGPT 36 U/L (9-52); AST/SGOT 27 U/L (14-36); BLOOD UREA NITROGEN 19 mg/dL (7-17); CALCIUM 9.3 mg/dl (8.6-10.4); GFR NON-AFRICAN AMERICAN > 60
[2017-11-25] MEDS ORDERED: Sodium Chloride 0.9% 1,000 ML ONE (08:27)
--- NOTE | 2017-11-25 09:22 | RAD ---
HISTORY: SOB COMPARISON: Chest x-ray performed 11/19/19 TECHNIQUE: Chest PA and lateral FINDINGS: LUNGS: Biapical pleural thickening and upper lobe granulomatous changes. Bilateral 9 mm nodular densities consistent with nipple shadows. Increased lucencies especially within the bilateral upper lung schwartz compatible with underlying emphysema. Hyperinflation may be seen in the setting of COPD. No definite pneumothorax. No significant pleural effusion. Please note that chest x-ray has limited sensitivity for the detection of pulmonary masses. CARDIOVASCULAR: Heart size appears within normal limits. Dense atherosclerotic calcifications of the aorta. OSSEOUS STRUCTURES: Osseous demineralization. Degenerative changes. VISUALIZED UPPER ABDOMEN: Unremarkable. OTHER FINDINGS: Vascular calcification, left axilla. IMPRESSION: COPD/emphysema. Additional findings as above.
[2017-11-26 01:14] VITALS: RESP 20
[2017-11-26] MEDS: Sodium Chloride 0.9% 1,000 ML IV SCH (05:42)
[2017-11-26] MEDS ORDERED: Fluticasone-Vilanterol 200/25mcg Diskus INH SCH (08:00)
[2017-11-26] MEDS ORDERED: Tiotropium 18 mcg Cap For Inhalation INH SCH (08:00)
[2017-11-26] MEDS ORDERED: MethylPREDNISolone 40 mg Vial IVP SCH (10:00)
--- NOTE | 2017-11-26 18:05 | CP.PCM.HP ---
History of Present Illness - History of Present Illness History of Present Illness: 77-year-old female admitted to the hospital with shortness of breath. Patient went to the emergency room because of the worsening shortness of breath, unable to sleep well at night. Patient was in the hospital yesterday, and was discharged yesterday evening, but her condition got worse last night and this morning. Patient is comparing of increasing SOB, cough noted, mucous production noted. But she has no leg swelling. She is eating well. In the emergency room after giving bronchodilators, Solu-Medrol she is feeling well. Past medical history: COPD, alcoholism, history of colon cancer, status post colectomy. Surgical history colectomy Allergies no known drug allergy Chronic smoker. The current hospitalization recently On examination: Vital signs stable. Chest good air entry regular heart sound extremities pedal edema 1+ Labs reviewed Nonspecific. Chest x-ray showing mild congestion Assessment: Patient is a 77-year-old female with a history of COPD, history of colon cancer, status post colectomy. Currently doing well. COPD exacerbation likely. On intravenous low-dose corticosteroid bronchodilators. Will continue the current treatment. 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 Present on Admission - Present on Admission Any Indicators Present on Admission: No History of DVT/PE: No History of Uncontrolled Diabetes: No Urinary Catheter: No Decubitus Ulcer Present: No Past Patient History - Infectious Disease Hx of Infectious Diseases: None - Past Medical History & Family History Past Medical History?: Yes - Past Social History Smoking Status: Former Smoker - CARDIAC Hx Congestive Heart Failure: Yes Hx Hypertension: Yes - PULMONARY Hx Asthma: Yes Hx Chronic Obstructive Pulmonary Disease (COPD): Yes Hx Pneumonia: Yes - NEUROLOGICAL Hx Neurological Disorder: No - HEENT Hx HEENT Problems: Yes Hx Cataracts: Yes (sx both eyes) - RENAL Hx Chronic Kidney Disease: No - ENDOCRINE/METABOLIC Hx Endocrine Disorders: No - HEMATOLOGICAL/ONCOLOGICAL Hx Blood Disorders: No - INTEGUMENTARY Hx Dermatological Problems: No - MUSCULOSKELETAL/RHEUMATOLOGICAL Hx Musculoskeletal Disorders: No Hx Falls: Yes - GASTROINTESTINAL Hx Gastrointestinal Disorders: Yes - GENITOURINARY/GYNECOLOGICAL Hx Genitourinary Disorders: No - PSYCHIATRIC Hx Anxiety: Yes Hx Substance Use: No - SURGICAL HISTORY Other/Comment: stomach surgery-2017 - ANESTHESIA Hx Anesthesia: Yes Hx Anesthesia Reactions: No Hx Malignant Hyperthermia: No Meds Allergies/Adverse Reactions: Allergies Allergy/AdvReac Type Severity Reaction Status Date / Time No Known Allergies Allergy Verified 11/25/17 06:56 Results - Vital Signs Recent Vital Signs: Last Vital Signs Temp 98.0 F 11/26/17 08:06 Pulse 80 11/26/17 08:06 Resp 20 11/26/17 08:06 BP 137/62 11/26/17 08:06 Pulse Ox 98 11/26/17 08:06 - Labs Result Diagrams: 11/25/17 07:42 11/25/17 07:42
--- NOTE | 2017-11-26 18:06 | CP.PCM.PN ---
Subjective - Date & Time of Evaluation Date of Evaluation: 11/26/17 Time of Evaluation: 18:05 - Subjective Subjective: 77-year-old female admitted to the hospital with shortness of breath. Patient went to the emergency room because of the worsening shortness of breath, unable to sleep well at night. Patient was in the hospital yesterday, and was discharged yesterday evening, but her condition got worse last night and this morning. Patient is comparing of increasing SOB, cough noted, mucous production noted. But she has no leg swelling. She is eating well. In the emergency room after giving bronchodilators, Solu-Medrol she is feeling well. Past medical history: COPD, alcoholism, history of colon cancer, status post colectomy. Surgical history colectomy Allergies no known drug allergy Chronic smoker. The current hospitalization recently On examination: Vital signs stable. Chest good air entry regular heart sound extremities pedal edema 1+ Labs reviewed Nonspecific. Chest x-ray showing mild congestion Assessment: Patient is a 77-year-old female with a history of COPD, history of colon cancer, status post colectomy. Currently doing well. COPD exacerbation likely. On intravenous low-dose corticosteroid bronchodilators. Will continue the current treatment. tree worker evaluation and will follow-up the patient Patient now feeling well. She is able to eat well. She has no chest pain. Cough minimally noted. Bowel movements are normal. Will continue to monitor. Discharge plan once she is stable. Objective - Vital Signs/Intake and Output Vital Signs (last 24 hours): Temp Pulse Resp BP Pulse Ox 98.0 F 80 20 137/62 98 11/26/17 08:06 11/26/17 08:06 11/26/17 08:06 11/26/17 08:06 11/26/17 08:06 Intake and Output: 11/26/17 11/26/17 06:59 18:59 Intake Total 800 Balance 800 - Medications Medications: Current Medications Albuterol/Ipratropium (Duoneb 3 Mg/0.5 Mg (3 Ml) Ud) 3 ml INH RQ6 PRN PRN Reason: Cough Fluticasone/Vilanterol (Breo Ellipta 200-25 Mcg Inh) 1 puff INH RQD GAEL Methylprednisolone (Solu-Medrol) 20 mg IVP DAILY GA[facility] Stop: 11/28/17 10:01 Pantoprazole Sodium (Protonix Inj) 40 mg IVP DAILY [facility] Last Admin: 11/26/17 09:27 Dose: 40 mg Tiotropium [place] (Spiriva) 18 mcg INH RQ24 GA[facility] - Labs Labs: 11/25/17 07:42 11/25/17 07:42
[2017-11-26] MEDS: Albuterol-Ipratrop 3 mg / 0.5 (3 ml) UD INH PRN (19:27)
[2017-11-27] MEDS: Albuterol-Ipratrop 3 mg / 0.5 (3 ml) UD INH PRN (08:39)
[2017-11-27] MEDS: MethylPREDNISolone 40 mg Vial IVP SCH (09:31)
[2017-11-27 11:41] LABS: BASO % 0.3 % (0.0-2.0); EOS # 0.1 K/uL (0.0-0.7); EOS % 0.5 % (0.0-4.0); HEMOGLOBIN 9.8 g/dL (11.0-16.0); LYMPH % 19.4 % (20.0-40.0); MEAN CELL VOLUME 87.3 fL (81.0-99.0); MEAN CORPUSCULAR HEMOGLOBIN 28.2 pg (27.0-31.0); MEAN CORPUSCULAR HGB CONC 32.4 g/dL (33.0-37.0); MEAN PLATELET VOLUME 7.1 fL (7.2-11.7); MONO # 0.9 K/uL (0.0-0.8); MONO % 5.5 % (0.0-10.0); NEUT # 11.7 K/uL (1.8-7.0); NEUT % 74.3 % (50.0-75.0); RBC 3.47 Mil/uL (3.80-5.20); RED CELL DISTRIBUTION WIDTH 15.2 % (11.5-14.5)
[2017-11-27 11:48] LABS: WHITE BLOOD COUNT 15.7 K/uL (4.8-10.8)
[2017-11-27 11:53] LABS: ALB/GLOB RATIO 1.3 (1.0-2.1); ALBUMIN 3.8 g/dL (3.5-5.0); ALT/SGPT 46 U/L (9-52); AST/SGOT 46 U/L (14-36); BLOOD UREA NITROGEN 18 mg/dL (7-17); CALCIUM 8.8 mg/dl (8.6-10.4); GFR NON-AFRICAN AMERICAN > 60
--- NOTE | 2017-11-27 19:12 | CP.PCM.PN ---
Subjective - Date & Time of Evaluation Date of Evaluation: 11/27/17 Time of Evaluation: 19:12 Objective - Vital Signs/Intake and Output Vital Signs (last 24 hours): Temp Pulse Resp BP Pulse Ox 97.9 F 104 H 20 96/63 L 99 11/27/17 17:13 11/27/17 17:13 11/27/17 17:13 11/27/17 17:13 11/27/17 17:13 Intake and Output: 11/27/17 11/28/17 18:59 06:59 Intake Total 600 Balance 600 - Medications Medications: Current Medications Albuterol/Ipratropium (Duoneb 3 Mg/0.5 Mg (3 Ml) Ud) 3 ml INH RQ6 PRN PRN Reason: Cough Last Admin: 11/27/17 08:39 Dose: 3 ml Fluticasone/Vilanterol (Breo Ellipta 200-25 Mcg Inh) 1 puff INH RQD GAEL Heparin Sodium (Porcine) (Heparin) 5,000 units SC Q12 [facility] Last Admin: 11/27/17 09:31 Dose: Not Given Methylprednisolone (Solu-Medrol) 20 mg IVP DAILY [facility] Stop: 11/28/17 10:01 Last Admin: 11/27/17 09:31 Dose: 20 mg Pantoprazole Sodium (Protonix Inj) 40 mg IVP DAILY [facility] Last Admin: 11/27/17 09:31 Dose: 40 mg Tiotropium [place] (Spiriva) 18 mcg INH RQ24 [facility] - Labs Labs: 11/27/17 11:24 11/27/17 11:24
--- NOTE | 2017-11-27 21:40 | CARD ---
APPROVED REPORT Date of service: 11/25/2017 EKG Measurement Heart [id number] <Conclusion> Normal sinus rhythm Normal ECG
[2017-11-28 10:12] VITALS: BP 119/62; PULSE 100; TEMP 97.7; O2SAT 98
[2017-11-28] MEDS: MethylPREDNISolone 40 mg Vial IVP SCH (10:30)
--- NOTE | 2017-11-28 20:29 | CP.PCM.DIS ---
Provider - Provider Date of Admission: 11/27/17 13:51 Attending physician: Jose Rafael Glover MD Hospital Course - Lab Results Lab Results: Most Recent Lab Values WBC 15.7 K/uL (4.8-10.8) H D 11/27/17 11:24 RBC 3.47 Mil/uL (3.80-5.20) L 11/27/17 11:24 Hgb 9.8 g/dL (11.0-16.0) L 11/27/17 11:24 Hct 30.3 % (34.0-47.0) L 11/27/17 11:24 MCV 87.3 fL (81.0-99.0) 11/27/17 11:24 MCH 28.2 pg (27.0-31.0) 11/27/17 11:24 MCHC 32.4 g/dL (33.0-37.0) L 11/27/17 11:24 RDW 15.2 % (11.5-14.5) H 11/27/17 11:24 Plt Count 455 K/uL (130-400) H 11/27/17 11:24 MPV 7.1 fL (7.2-11.7) L 11/27/17 11:24 Neut % (Auto) 74.3 % (50.0-75.0) 11/27/17 11:24 Lymph % (Auto) 19.4 % (20.0-40.0) L 11/27/17 11:24 [place] % (Auto) 5.5 % (0.0-10.0) 11/27/17 11:24 Eos % (Auto) 0.5 % (0.0-4.0) 11/27/17 11:24 Baso % (Auto) 0.3 % (0.0-2.0) 11/27/17 11:24 Neut # (Auto) 11.7 K/uL (1.8-7.0) H 11/27/17 11:24 Lymph # (Auto) 3.0 K/uL (1.0-4.3) 11/27/17 11:24 [place] # (Auto) 0.9 K/uL (0.0-0.8) H 11/27/17 11:24 Eos # (Auto) 0.1 K/uL (0.0-0.7) 11/27/17 11:24 Baso # (Auto) 0.0 K/uL (0.0-0.2) 11/27/17 11:24 Sodium 137 mmol/L (132-148) 11/27/17 11:24 Potassium 3.8 mmol/L (3.6-5.2) 11/27/17 11:24 Chloride 103 mmol/L (98-107) 11/27/17 11:24 Carbon Dioxide 21 mmol/L (22-30) L 11/27/17 11:24 Anion Gap 17 (10-20) 11/27/17 11:24 BUN 18 mg/dL (7-17) H 11/27/17 11:24 Creatinine 0.7 mg/dL (0.7-1.2) 11/27/17 11:24 Est GFR ( Amer) > 60 11/27/17 11:24 Est GFR (Non-Af Amer) > 60 11/27/17 11:24 Random Glucose 136 mg/dL (65-105) H 11/27/17 11:24 Calcium 8.8 mg/dl (8.6-10.4) 11/27/17 11:24 Total Bilirubin 0.3 mg/dL (0.2-1.3) 11/27/17 11:24 AST 46 U/L (14-36) H D 11/27/17 11:24 ALT 46 U/L (9-52) 11/27/17 11:24 Alkaline Phosphatase 63 U/L (38-126) 11/27/17 11:24 Total Protein 6.6 g/dL (6.3-8.3) 11/27/17 11:24 Albumin 3.8 g/dL (3.5-5.0) 11/27/17 11:24 Globulin 2.8 gm/dL (2.2-3.9) 11/27/17 11:24 Albumin/Globulin Ratio 1.3 (1.0-2.1) 11/27/17 11:24 Discharge Plan - Follow Up Plan Condition: GOOD Disposition: HOME/ ROUTINE Instructions: Heart Failure, Adult (DC) Additional Instructions: Please f/u with Dr. Glover office in 1 week continue medication as per medication reconciliation Referrals: Jose Rafael Glover MD [Staff Provider] -
== END 2017-11-28 15:44 | disposition home or self-care (01) | DRG 192 ==
LOC: C.ER 06:42 → C.9E 08:12 → C.5S 15:20 → OBSVTOIN 11-27 13:51
PROVIDERS: ADMIT Internal Medicine; ATTEND Internal Medicine
DX: J44.1 Chronic obstructive pulmonary disease with (acute) exacerbation (principal); I11.0 Hypertensive heart disease with heart failure; I50.9 Heart failure, unspecified; F41.9 Anxiety disorder, unspecified; Z99.81 Dependence on supplemental oxygen; Z87.891 Personal history of nicotine dependence; Z87.01 Personal history of pneumonia (recurrent); Z85.038 Personal history of other malignant neoplasm of large intestine; Z90.49 Acquired absence of other specified parts of digestive tract

== ENCOUNTER 2017-11-30 09:05 | Inpatient (IN) | payer MEDICARE, MEDICAID ==
[2017-11-30 09:05] VITALS: BMI 19.5
[2017-11-30] MEDS ORDERED: Albuterol-Ipratrop 3 mg / 0.5 (3 ml) UD INH STA ×2 (09:12→10:41)
[2017-11-30] MEDS ORDERED: Albuterol-Ipratrop 3 mg / 0.5 (3 ml) UD ONE ×2 (09:23→10:50)
[2017-11-30 09:45] LABS: BASO # 0.1 K/uL (0.0-0.2); BASO % 0.7 % (0.0-2.0); EOS # 0.1 K/uL (0.0-0.7); EOS % 0.4 % (0.0-4.0); HEMOGLOBIN 10.3 g/dL (11.0-16.0); LYMPH # 2.3 K/uL (1.0-4.3); LYMPH % 14.1 % (20.0-40.0); MEAN CELL VOLUME 85.4 fL (81.0-99.0); MEAN CORPUSCULAR HEMOGLOBIN 28.6 pg (27.0-31.0); MEAN CORPUSCULAR HGB CONC 33.5 g/dL (33.0-37.0); MEAN PLATELET VOLUME 6.4 fL (7.2-11.7); MONO # 1.2 K/uL (0.0-0.8); MONO % 7.4 % (0.0-10.0); NEUT # 12.6 K/uL (1.8-7.0); NEUT % 77.4 % (50.0-75.0); RBC 3.61 Mil/uL (3.80-5.20); RED CELL DISTRIBUTION WIDTH 15.2 % (11.5-14.5); WHITE BLOOD COUNT 16.3 K/uL (4.8-10.8)
[2017-11-30 10:15] LABS: B-TYPE NATRIURETIC PEPTIDE 1020 pg/mL (0-900)
[2017-11-30 10:26] LABS: ALB/GLOB RATIO 1.2 (1.0-2.1); ALBUMIN 3.6 g/dL (3.5-5.0); ALT/SGPT 35 U/L (9-52); AST/SGOT 34 U/L (14-36); BLOOD UREA NITROGEN 12 mg/dL (7-17); GFR NON-AFRICAN AMERICAN > 60
--- NOTE | 2017-11-30 10:29 | RAD ---
Date of service: 11/30/2017 PROCEDURE: CHEST RADIOGRAPH, 1 VIEW HISTORY: SOB COMPARISON: Chest radiographs 11/25/2017. FINDINGS: LUNGS: No acute infiltrate identified bilaterally. Hyperlucent lungs are appreciate with biapical fibrosis in a pattern suspicious for COPD. PLEURA: No pneumothorax or pleural fluid seen. CARDIOVASCULAR: Cardiac silhouette remains normal in size. No pulmonary vascular congestion. Dense aortic arch atherosclerotic calcifications identified extending into the descending thoracic aorta somewhat. Calcification along great vessels also appreciated in the upper chest and thoracic inlet. OSSEOUS STRUCTURES: No significant abnormalities. VISUALIZED UPPER ABDOMEN: Normal. OTHER FINDINGS: None. IMPRESSION: No acute infiltrate. No pleural effusion, pneumothorax or pulmonary vascular congestion. COPD related changes are reiterated.
--- NOTE | 2017-11-30 10:32 | C.PDOC ---
History Of Present Illness 77 y/o female presents to the ED for complaints of increasing shortness of breath. Patient already with 3 hospitalizations this month, most recently was admitted here between 11/25-11/28 for COPD exacerbation. Now presents complainin g of worsening SOB this morning, states she ran out of duoneb liquids at home. Of note patient admits there are cats in the house, with (+) second hand smoke in the home as well. Denies smoking herself. Otherwise she denies any chest pain, nausea, vomiting, dizziness, visual changes, or other complaints. Time Seen by Provider: 11/30/17 09:11 Chief Complaint (Nursing): Shortness Of Breath History Per: Patient History/Exam Limitations: no limitations Onset/Duration Of Symptoms: Days Current Symptoms Are (Timing): Worse Past Medical History Reviewed: Historical Data, Nursing Documentation, Vital Signs Vital Signs: Last Vital Signs Temp 97.7 F 11/30/17 09:13 Pulse 106 H 11/30/17 09:13 Resp 22 11/30/17 09:13 BP 102/49 L 11/30/17 09:13 Pulse Ox 100 11/30/17 09:13 - Medical History PMH: Anxiety, Asthma, CHF, COPD, HTN, Malignancy (colon CA s/p resection), Pneumonia Denies: Chronic Kidney Disease - [facility] Procedures ALCOHOL DETOXIFICATION (12/30/12) DRAINAGE OF LEFT PLEURAL CAVITY, PERCUTANEOUS APPROACH (10/26/17) EXCISION OF CECUM, OPEN APPROACH (10/09/17) EXCISION OF SIGMOID COLON, OPEN APPROACH (10/09/17) NON-INVASIVE MECHANICAL VENTILATION (12/30/12) - Social History Hx Tobacco Use: Yes (former) Hx Alcohol Use: No Hx Substance Use: No - Immunization History Hx Tetanus Toxoid Vaccination: No (unk) Hx Influenza Vaccination: No Hx Pneumococcal Vaccination: No (unk) Review Of Systems Constitutional: Negative for: Fever, Chills Eyes: Negative for: Vision Change Cardiovascular: Negative for: Chest Pain, Light Headedness Respiratory: Positive for: Cough, Shortness of Breath Gastrointestinal: Negative for: Nausea, Vomiting Neurological: Negative for: Weakness, Dizziness Physical Exam - Physical Exam Appears: In Acute Distress (appears in mild to moderate distress) Skin: Normal Color, Warm, Dry Head: Atraumatic, Normacephalic Eye(s): bilateral: Normal Inspection, PERRL, EOMI Oral Mucosa: Moist Neck: Normal ROM Chest: Symmetrical Cardiovascular: Rhythm Regular, No Murmur Respiratory: Decreased Breath Sounds (Lung sounds distant), No Accessory Muscle Use, No Rales, No Rhonchi, Wheezing (mild) Gastrointestinal/Abdominal: Soft, No Tenderness, No Distention, No Guarding Extremity: Bilateral: Atraumatic, No Pedal Edema, Normal Color And Temperature Pulses: Left Dorsalis Pedis: Normal, Right Dorsalis Pedis: Normal Neurological/Psych: Oriented x3, Normal Speech ED Course And Treatment - Laboratory Results Result Diagrams: 11/30/17 09:40 11/30/17 09:40 Lab Interpretation: Abnormal (persistent leukocytosis not sig changed from prior- prob related to consistent steroids) ECG: Interpreted By Me ECG Rhythm: Sinus Rhythm (100) ECG Interpretation: Normal Rate From EC O2 Sat by Pulse Oximetry: 100 (RA) Pulse Ox Interpretation: Normal - Radiology CXR: Interpreted by Me CXR Interpretation: Yes: Other (+ hyperinflated) Reevaluation Time: 10:33 Reassessment Condition: Improved - Physician Consult Information Outcome Of Conversation: 0938, 1030: dw rocky Lao to admit. Medical Decision Making Medical Decision Making: Plan: --EKG --Blood work --Urinalysis --Chest x-ray --Duoneb 6ml x2 --Solu-Medrol 125 mg IVP --Reassess after tx Impression: recurrent COPD exacerbation Home factors: ran out of duoneb liquids, exposure to cats and 2nd hand smoke 4th admission in < 20 days. Disposition Doctor Will See Patient In The: Hospital Counseled Patient/Family Regarding: Studies Performed, Diagnosis - Disposition Disposition: HOSPITALIZED Disposition Time: 10:35 Condition: GOOD - Clinical Impression Clinical Impression: Chronic obstructive lung disease - Scribe Statement The provider has reviewed the documentation as recorded by the Scribe (Jossy Carmona) Provider Attestation: All medical record entries made by the Scribe were at my direction and personally dictated by me. I have reviewed the chart and agree that the record accurately reflects my personal performance of the history, physical exam, medical decision making, and the department course for this patient. I have also personally directed, reviewed, and agree with the discharge instructions and disposition.
--- NOTE | 2017-11-30 18:03 | CP.PCM.HP ---
History of Present Illness - History of Present Illness History of Present Illness: Chief complaint: Shortness of breath HPI: 77-year-old female admitted to the hospital with shortness of breath. Patient went to the emergency room because of the worsening shortness of breath, unable to sleep well at night. Patient was recently hospitalized with the similar condition. She was having increasing shortness of breath. Treated conservatively, and was stable before discharge In the emergency room after giving bronchodilators, Solu-Medrol she is feeling well. Past medical history: COPD, alcoholism, history of colon cancer, status post colectomy. Surgical history colectomy Allergies no known drug allergy Chronic smoker. The current hospitalization recently On examination: Vital signs stable. Chest good air entry regular heart sound extremities pedal edema 1+ Labs reviewed Nonspecific. Chest x-ray showing mild congestion patient labs reviewed Low sodium level noted, elevated proBNP level noted. Assessment: Patient is a 77-year-old female with a history of COPD, history of colon cancer, status post colectomy. Currently doing well. COPD exacerbation likely. On intravenous low-dose corticosteroid bronchodilators. Will continue the current treatment. conversion worker evaluation and will follow-up the patient Also possible mild fluid retention possible. DVT and GI prophylaxis Present on Admission - Present on Admission Any Indicators Present on Admission: No History of DVT/PE: No History of Uncontrolled Diabetes: No Urinary Catheter: No Decubitus Ulcer Present: No Past Patient History - Infectious Disease Hx of Infectious Diseases: None - Past Medical History & Family History Past Medical History?: Yes - Past Social History Smoking Status: Former Smoker - CARDIAC Hx Cardiac Disorders: Yes Hx Congestive Heart Failure: Yes Hx Hypertension: Yes - PULMONARY Hx Respiratory Disorders: Yes Hx Asthma: Yes Hx Chronic Obstructive Pulmonary Disease (COPD): Yes Hx Pneumonia: Yes - NEUROLOGICAL Hx Neurological Disorder: No - HEENT Hx HEENT Problems: Yes Hx Cataracts: Yes (sx both eyes) - RENAL Hx Chronic Kidney Disease: No - ENDOCRINE/METABOLIC Hx Endocrine Disorders: No - HEMATOLOGICAL/ONCOLOGICAL Hx Blood Disorders: No - INTEGUMENTARY Hx Dermatological Problems: No - MUSCULOSKELETAL/RHEUMATOLOGICAL Hx Falls: Yes - GASTROINTESTINAL Hx Gastrointestinal Disorders: No - GENITOURINARY/GYNECOLOGICAL Hx Genitourinary Disorders: No - PSYCHIATRIC Hx Psychophysiologic Disorder: Yes Hx Anxiety: Yes Hx Substance Use: No - SURGICAL HISTORY Hx Surgeries: Yes Other/Comment: stomach surgery-Aug. 2018 - ANESTHESIA Hx Anesthesia: Yes Hx Anesthesia Reactions: No Hx Malignant Hyperthermia: No Has any member of the family had a problem w/ anesthesia?: No Meds Allergies/Adverse Reactions: Allergies Allergy/AdvReac Type Severity Reaction Status Date / Time No Known Allergies Allergy Verified 11/25/17 06:56 Results - Vital Signs Recent Vital Signs: Last Vital Signs Temp 97.9 F 11/30/17 15:40 Pulse 115 H 11/30/17 15:40 Resp 18 11/30/17 15:40 BP 112/61 11/30/17 16:35 Pulse Ox 97 11/30/17 15:40 - Labs Result Diagrams: 11/30/17 09:40 11/30/17 09:40 Labs: Laboratory Results - last 24 hr 11/30/17 11/30/17 09:40 09:40 WBC 16.3 H RBC 3.61 L Hgb 10.3 L Hct 30.8 L MCV 85.4 MCH 28.6 MCHC 33.5 RDW 15.2 H Plt Count 378 MPV 6.4 L Neut % (Auto) 77.4 H Lymph % (Auto) 14.1 L [place] % (Auto) 7.4 Eos % (Auto) 0.4 Baso % (Auto) 0.7 Neut # (Auto) 12.6 H Lymph # (Auto) 2.3 [place] # (Auto) 1.2 H Eos # (Auto) 0.1 Baso # (Auto) 0.1 Sodium 127 L Potassium 5.3 H Chloride 93 L Carbon Dioxide 22 Anion Gap 18 BUN 12 Creatinine 0.4 L Est GFR ( Amer) > 60 Est GFR (Non-Af Amer) > 60 Random Glucose 98 Calcium 9.0 Total Bilirubin 0.6 AST 34 ALT 35 Alkaline Phosphatase 47 Troponin I < 0.0120 NT-Pro-B Natriuret Pep 1020 H Total Protein 6.7 Albumin 3.6 Globulin 3.0 Albumin/Globulin Ratio 1.2 Alcohol, Quantitative < 10
[2017-11-30] MEDS: Albuterol-Ipratrop 3 mg / 0.5 (3 ml) UD INH SCH (20:08)
[2017-11-30] MEDS: MethylPREDNISolone 40 mg Vial IVP SCH (21:23)
[2017-12-01] MEDS: Albuterol-Ipratrop 3 mg / 0.5 (3 ml) UD INH SCH ×4 (01:13→20:13)
[2017-12-01] MEDS: MethylPREDNISolone 40 mg Vial IVP SCH ×2 (09:40→21:10)
[2017-12-01 12:57] LABS: SQUAMOUS EPITHIAL 5 /hpf (0-5); URINE BACTERIA MOD (<OCC); URINE BILIRUBIN NEGATIVE (NEGATIVE); URINE BLOOD NEGATIVE (NEGATIVE); URINE CLARITY Clear (Clear); URINE COLOR Yellow (YELLOW); URINE GLUCOSE (UA) NORMAL (Normal); URINE LEUKOCYTE ESTERASE TRACE Leu/uL (Negative); URINE PROTEIN NEGATIVE (NEGATIVE); URINE UROBILINOGEN NORMAL mg/dL (0.2-1.0)
--- NOTE | 2017-12-01 17:49 | CARD ---
APPROVED REPORT Date of service: 11/30/2017 EKG Measurement Heart [id number] <Conclusion> Normal sinus rhythm Nonspecific ST abnormality Abnormal ECG
[2017-12-02] MEDS: Albuterol-Ipratrop 3 mg / 0.5 (3 ml) UD INH SCH ×4 (01:45→19:36)
[2017-12-02 07:56] LABS: BASO % 0.1 % (0.0-2.0); HEMOGLOBIN 9.8 g/dL (11.0-16.0); LYMPH % 9.9 % (20.0-40.0); MEAN CELL VOLUME 85.8 fL (81.0-99.0); MEAN CORPUSCULAR HGB CONC 32.6 g/dL (33.0-37.0); MEAN PLATELET VOLUME 6.7 fL (7.2-11.7); MONO # 0.6 K/uL (0.0-0.8); MONO % 6.1 % (0.0-10.0); NEUT # 8.2 K/uL (1.8-7.0); NEUT % 83.9 % (50.0-75.0); PLATELET COUNT 322 K/uL (130-400); RED CELL DISTRIBUTION WIDTH 15.2 % (11.5-14.5); WHITE BLOOD COUNT 9.8 K/uL (4.8-10.8)
[2017-12-02 08:23] LABS: ALB/GLOB RATIO 1.3 (1.0-2.1); ALBUMIN 3.6 g/dL (3.5-5.0); ALT/SGPT 26 U/L (9-52); AST/SGOT 22 U/L (14-36); BLOOD UREA NITROGEN 14 mg/dL (7-17); CALCIUM 9.4 mg/dl (8.6-10.4); GFR NON-AFRICAN AMERICAN > 60
[2017-12-02 09:25] LABS: BANDS 1 % (0-2); LYMPHOCYTE 6 % (20-40); MONOCYTE 7 % (0-10); NEUTROPHIL 86 % (50-75); PLATELET ESTIMATE NORMAL (NORMAL); TOTAL CELLS COUNTED 100
[2017-12-02 09:26] LABS: ANISOCYTOSIS SLIGHT
[2017-12-02 09:28] LABS: HYPOCHROMIC SLIGHT; POLYCHROMIC SLIGHT
[2017-12-02] MEDS: MethylPREDNISolone 40 mg Vial IVP SCH ×2 (10:03→21:25)
[2017-12-03] MEDS: Albuterol-Ipratrop 3 mg / 0.5 (3 ml) UD INH SCH ×4 (01:40→20:37)
[2017-12-03] MEDS: MethylPREDNISolone 40 mg Vial IVP SCH ×2 (09:42→21:20)
[2017-12-04] MEDS: Albuterol-Ipratrop 3 mg / 0.5 (3 ml) UD INH SCH ×4 (01:50→19:08)
[2017-12-05] MEDS: Albuterol-Ipratrop 3 mg / 0.5 (3 ml) UD INH SCH ×4 (01:20→19:15)
--- NOTE | 2017-12-05 19:56 | CP.PCM.PN ---
Subjective - Date & Time of Evaluation Date of Evaluation: 12/01/17 Time of Evaluation: 19:56 - Subjective Subjective: Patient is feeling well otherwise. She has no chest pain. Cough and mucus noted On examination: Minimal expiratory wheezing noted. Bilateral leg swelling noted Currently Will continue the by mouth Lasix. I discussed with the patient in detail about the discharge plan. Patient is very reluctant to go to rehabilitation. But patient is at high risk for discharge home, with frequent hospitalization. Increasing shortness of breath on exertion noted. Will continue the current treatment Objective - Vital Signs/Intake and Output Vital Signs (last 24 hours): Temp Pulse Resp BP Pulse Ox 98.2 F 110 H 18 136/67 98 12/05/17 15:00 12/05/17 15:00 12/05/17 15:00 12/05/17 15:00 12/05/17 15:00 Intake and Output: 12/05/17 12/06/17 18:59 06:59 Intake Total 800 Balance 800 - Medications Medications: Current Medications Albuterol/Ipratropium (Duoneb 3 Mg/0.5 Mg (3 Ml) Ud) 3 ml INH RQ6 [facility] Last Admin: 12/05/17 19:15 Dose: 3 ml Furosemide (Lasix) 20 mg IVP DAILY [facility] Last Admin: 12/05/17 09:31 Dose: 20 mg Heparin Sodium (Porcine) (Heparin) 5,000 units SC Q8 [facility] Last Admin: 12/05/17 14:22 Dose: Not Given Pantoprazole Sodium (Protonix Ec Tab) 40 mg PO DAILY [facility] - Labs Labs: 12/02/17 07:42 12/02/17 07:42
--- NOTE | 2017-12-05 19:56 | CP.PCM.PN ---
Subjective - Date & Time of Evaluation Date of Evaluation: 12/02/17 Time of Evaluation: 14:00 - Subjective Subjective: Patient is feeling well otherwise. She has no chest pain. Cough and mucus noted On examination: Minimal expiratory wheezing noted. Bilateral leg swelling noted Currently Will continue the by mouth Lasix. I discussed with the patient in detail about the discharge plan. Patient is very reluctant to go to rehabilitation. But patient is at high risk for discharge home, with frequent hospitalization. SWE Objective - Vital Signs/Intake and Output Vital Signs (last 24 hours): Temp Pulse Resp BP Pulse Ox 98.2 F 110 H 18 136/67 98 12/05/17 15:00 12/05/17 15:00 12/05/17 15:00 12/05/17 15:00 12/05/17 15:00 Intake and Output: 12/05/17 12/06/17 18:59 06:59 Intake Total 800 Balance 800 - Medications Medications: Current Medications Albuterol/Ipratropium (Duoneb 3 Mg/0.5 Mg (3 Ml) Ud) 3 ml INH RQ6 [facility] Last Admin: 12/05/17 19:15 Dose: 3 ml Furosemide (Lasix) 20 mg IVP DAILY [facility] Last Admin: 12/05/17 09:31 Dose: 20 mg Heparin Sodium (Porcine) (Heparin) 5,000 units SC Q8 [facility] Last Admin: 12/05/17 14:22 Dose: Not Given Pantoprazole Sodium (Protonix Ec Tab) 40 mg PO DAILY [facility] - Labs Labs: 12/02/17 07:42 12/02/17 07:42
--- NOTE | 2017-12-05 19:57 | CP.PCM.PN ---
Subjective - Date & Time of Evaluation Date of Evaluation: 12/04/17 Time of Evaluation: 19:57 - Subjective Subjective: Patient complaining of abdominal pain. No nausea. No vomiting. Eating well. On examination: Vital signs stable. Chest good air entry regular heart sound Patient has a 1+ pedal edema Assessment 77-year-old female with a history of extensive COPD, alcoholic abuser, history of colon cancer, status post colectomy. With recurrent hospitalization with the COPD exacerbation,dvt prophylazxis Objective - Vital Signs/Intake and Output Vital Signs (last 24 hours): Temp Pulse Resp BP Pulse Ox 98.2 F 110 H 18 136/67 98 12/05/17 15:00 12/05/17 15:00 12/05/17 15:00 12/05/17 15:00 12/05/17 15:00 Intake and Output: 12/05/17 12/06/17 18:59 06:59 Intake Total 800 Balance 800 - Medications Medications: Current Medications Albuterol/Ipratropium (Duoneb 3 Mg/0.5 Mg (3 Ml) Ud) 3 ml INH RQ6 [facility] Last Admin: 12/05/17 19:15 Dose: 3 ml Furosemide (Lasix) 20 mg IVP DAILY [facility] Last Admin: 12/05/17 09:31 Dose: 20 mg Heparin Sodium (Porcine) (Heparin) 5,000 units SC Q8 [facility] Last Admin: 12/05/17 14:22 Dose: Not Given Pantoprazole Sodium (Protonix Ec Tab) 40 mg PO DAILY [facility] - Labs Labs: 12/02/17 07:42 12/02/17 07:42
--- NOTE | 2017-12-05 19:57 | CP.PCM.PN ---
Subjective - Date & Time of Evaluation Date of Evaluation: 12/05/17 Time of Evaluation: 20:01 - Subjective Subjective: Patient is comfortable today. Wheezing noted. No chest pain On examination: Vital stable. Bilateral expiratory wheezing noted Will continue the current treatment. Patient with the COPD exacerbation pain On IV Lasix. Repeat labs tomorrow. After discussion with the patient she is agreeing for rehabilitation subacute, Bill possibly arrange for rehabilitation to prevent further repeated hospitalization also for physical exercise and treatment and nebulizers oxygen and respiratory treatment. Objective - Vital Signs/Intake and Output Vital Signs (last 24 hours): Temp Pulse Resp BP Pulse Ox 98.2 F 110 H 18 136/67 98 12/05/17 15:00 12/05/17 15:00 12/05/17 15:00 12/05/17 15:00 12/05/17 15:00 Intake and Output: 12/05/17 12/06/17 18:59 06:59 Intake Total 800 Balance 800 - Medications Medications: Current Medications Albuterol/Ipratropium (Duoneb 3 Mg/0.5 Mg (3 Ml) Ud) 3 ml INH RQ6 [facility] Last Admin: 12/05/17 19:15 Dose: 3 ml Furosemide (Lasix) 20 mg IVP DAILY [facility] Last Admin: 12/05/17 09:31 Dose: 20 mg Heparin Sodium (Porcine) (Heparin) 5,000 units SC Q8 [facility] Last Admin: 12/05/17 14:22 Dose: Not Given Pantoprazole Sodium (Protonix Ec Tab) 40 mg PO DAILY [facility] - Labs Labs: 12/02/17 07:42 12/02/17 07:42
--- NOTE | 2017-12-05 19:57 | CP.PCM.PN ---
Subjective - Date & Time of Evaluation Date of Evaluation: 12/03/17 Time of Evaluation: 16:00 - Subjective Subjective: Patient complaining of abdominal pain. No nausea. No vomiting. Eating well. On examination: Vital signs stable. Chest good air entry regular heart sound Patient has a 1+ pedal edema Assessment 77-year-old female with a history of extensive COPD, alcoholic abuser, history of colon cancer, status post colectomy. With recurrent hospitalization with the COPD exacerbation, on steroid at this time. We'll continue the current treatment Objective - Vital Signs/Intake and Output Vital Signs (last 24 hours): Temp Pulse Resp BP Pulse Ox 98.2 F 110 H 18 136/67 98 12/05/17 15:00 12/05/17 15:00 12/05/17 15:00 12/05/17 15:00 12/05/17 15:00 Intake and Output: 12/05/17 12/06/17 18:59 06:59 Intake Total 800 Balance 800 - Medications Medications: Current Medications Albuterol/Ipratropium (Duoneb 3 Mg/0.5 Mg (3 Ml) Ud) 3 ml INH RQ6 [facility] Last Admin: 12/05/17 19:15 Dose: 3 ml Furosemide (Lasix) 20 mg IVP DAILY [facility] Last Admin: 12/05/17 09:31 Dose: 20 mg Heparin Sodium (Porcine) (Heparin) 5,000 units SC Q8 [facility] Last Admin: 12/05/17 14:22 Dose: Not Given Pantoprazole Sodium (Protonix Ec Tab) 40 mg PO DAILY [facility] - Labs Labs: 12/02/17 07:42 12/02/17 07:42
[2017-12-06] MEDS: Albuterol-Ipratrop 3 mg / 0.5 (3 ml) UD INH SCH ×4 (01:22→20:02)
[2017-12-06 07:36] LABS: BASO % 0.4 % (0.0-2.0); EOS # 0.1 K/uL (0.0-0.7); EOS % 0.9 % (0.0-4.0); HEMOGLOBIN 10.2 g/dL (11.0-16.0); LYMPH # 2.2 K/uL (1.0-4.3); LYMPH % 23.4 % (20.0-40.0); MEAN CELL VOLUME 85.4 fL (81.0-99.0); MEAN CORPUSCULAR HEMOGLOBIN 28.2 pg (27.0-31.0); MEAN PLATELET VOLUME 6.5 fL (7.2-11.7); MONO # 0.8 K/uL (0.0-0.8); MONO % 8.1 % (0.0-10.0); NEUT # 6.4 K/uL (1.8-7.0); NEUT % 67.2 % (50.0-75.0); RBC 3.62 Mil/uL (3.80-5.20); RED CELL DISTRIBUTION WIDTH 14.7 % (11.5-14.5); WHITE BLOOD COUNT 9.6 K/uL (4.8-10.8)
[2017-12-06 08:26] LABS: ALB/GLOB RATIO 1.3 (1.0-2.1); ALBUMIN 3.2 g/dL (3.5-5.0); ALT/SGPT 37 U/L (9-52); AST/SGOT 20 U/L (14-36); BLOOD UREA NITROGEN 19 mg/dL (7-17); CALCIUM 8.7 mg/dl (8.6-10.4); GFR NON-AFRICAN AMERICAN > 60
[2017-12-06] MEDS: Pantoprazole 40 mg EC Tab PO SCH (09:49)
[2017-12-06] MEDS ORDERED: Albuterol-Ipratrop 3 mg / 0.5 (3 ml) UD INH STA (19:59)
--- NOTE | 2017-12-06 20:39 | CP.PCM.PN ---
Subjective - Date & Time of Evaluation Date of Evaluation: 12/06/17 Time of Evaluation: 20:38 - Subjective Subjective: She now having minimal cough, minimal wheezing, especially distress present. Will start the patient on low-dose of Solu-Medrol. Bronchodilators. Patient is currently agreeing to go to rehabilitation. Once the bed is available will discharge the patient for rehabilitation. Objective - Vital Signs/Intake and Output Vital Signs (last 24 hours): Temp Pulse Resp BP Pulse Ox 98.1 F 93 H 18 136/57 L 99 12/06/17 15:00 12/06/17 15:00 12/06/17 15:00 12/06/17 15:00 12/06/17 15:00 - Medications Medications: Current Medications Albuterol/Ipratropium (Duoneb 3 Mg/0.5 Mg (3 Ml) Ud) 3 ml INH RQ6 [facility] Last Admin: 12/06/17 20:02 Dose: 3 ml Heparin Sodium (Porcine) (Heparin) 5,000 units SC Q8 [facility] Last Admin: 12/06/17 13:30 Dose: Not Given Methylprednisolone (Solu-Medrol) 20 mg IVP Q12 [facility] Pantoprazole Sodium (Protonix Ec Tab) 40 mg PO DAILY [facility] Last Admin: 12/06/17 09:49 Dose: 40 mg - Labs Labs: 12/06/17 07:20 12/06/17 07:20
[2017-12-06] MEDS: MethylPREDNISolone 40 mg Vial IVP SCH (21:53)
[2017-12-07] MEDS: Albuterol-Ipratrop 3 mg / 0.5 (3 ml) UD INH SCH ×3 (01:42→13:20)
[2017-12-07 08:32] VITALS: O2SAT 100
[2017-12-07] MEDS: MethylPREDNISolone 40 mg Vial IVP SCH (09:34)
[2017-12-07] MEDS: Pantoprazole 40 mg EC Tab PO SCH (09:34)
[2017-12-07 16:01] VITALS: BP 145/80; PULSE 100; RESP 18; TEMP 98.3
--- NOTE | 2017-12-07 17:07 | PCM.HF ---
Heart Failure Core Measure - Heart Failure Ejection Fraction: 40 % or Greater (EF 55%) MARTHA Inhibitor Prescribed: No Contraindication/Reason for not providing: low BP Beta-Haley Prescribed: None Contraindication/Reason for not providing: COPD Angiotensin II Receptor Haley Prescribed: No Contraindication/Reason for not providing: low BP AnticoagulationTherapy for Atrial Fibrillation/Atrialflutter: No Contraindication/Reason for not providing: No afib Aldosterone Antagonist Prescribed: No Contraindication/Reason for not providing: EF > 40% Hydralazine Nitrate Prescribed: No Contraindication/Reason for not providing: EF >40% Implantable Cardioverter Defibrillator Therapy: No Contraindication/Reason for not providing: EF >40% Cardiac Resynchronization Therapy Prescribed: No Contraindication/Reason for not providing: not indicated - Follow up Will be discharged to: Home Follow Up Date (must be within 7 days from discharge): 12/11/17
--- NOTE | 2017-12-07 17:12 | CP.PCM.PN ---
Subjective - Date & Time of Evaluation Date of Evaluation: 12/07/17 Time of Evaluation: 11:00 - Subjective Subjective: alert, awake, has sob on exertion, no acute distress. Objective - Vital Signs/Intake and Output Vital Signs (last 24 hours): Temp Pulse Resp BP Pulse Ox 98.3 F 100 H 18 145/80 100 12/07/17 15:00 12/07/17 15:00 12/07/17 15:00 12/07/17 15:00 12/07/17 15:00 - Medications Medications: Current Medications Albuterol/Ipratropium (Duoneb 3 Mg/0.5 Mg (3 Ml) Ud) 3 ml INH RQ6 [facility] Last Admin: 12/07/17 13:20 Dose: Not Given Heparin Sodium (Porcine) (Heparin) 5,000 units SC Q8 [facility] Last Admin: 12/07/17 13:14 Dose: Not Given Methylprednisolone (Solu-Medrol) 20 mg IVP Q12 [facility] Last Admin: 12/07/17 09:34 Dose: 20 mg Pantoprazole Sodium (Protonix Ec Tab) 40 mg PO DAILY [facility] Last Admin: 12/07/17 09:34 Dose: 40 mg - Labs Labs: 12/06/17 07:20 12/06/17 07:20 Assessment and Plan - Assessment and Plan (Free Text) Assessment: Patient is seen and examined in the room. Alert and oriented x3, has sob on exertion, no wheezing now. Discharge plan discussed with the patient, denied by the rehab. She has oxygen and nebulizer set up at home. Discussed with DR Glover, plan to discharge home with home care services. Patient verbalized understanding. Advised to follow up with PMD in 1 week.
== END 2017-12-07 18:12 | disposition home or self-care (01) | DRG 192 ==
LOC: C.ER 09:05 → C.9E 10:35 → C.5S 14:09
PROVIDERS: ADMIT Internal Medicine; ATTEND Internal Medicine
DX: J44.1 Chronic obstructive pulmonary disease with (acute) exacerbation (principal); Z85.038 Personal history of other malignant neoplasm of large intestine; Z87.891 Personal history of nicotine dependence; I11.0 Hypertensive heart disease with heart failure; I50.9 Heart failure, unspecified

== ENCOUNTER 2018-05-29 14:01 | Inpatient (IN) | payer MEDICARE, MEDICAID ==
[2018-05-29 14:01] VITALS: BMI 19.5
[2018-05-29] MEDS ORDERED: Albuterol 0.083% Inhal Sol (2.5 mg/3 mL) UD IH STA (14:35)
[2018-05-29 14:40] LABS: VENOUS BLOOD GAS PCO2 43 mmHg (40-60); VENOUS BLOOD GAS PO2 18 mm/Hg (30-55); VENOUS BLOOD PH 7.38 (7.32-7.43)
[2018-05-29 14:44] LABS: BASO # 0.1 K/uL (0.0-0.2); BASO % 0.5 % (0.0-2.0); EOS % 0.2 % (0.0-4.0); LYMPH # 1.1 K/uL (1.0-4.3); LYMPH % 10.5 % (20.0-40.0); MEAN CORPUSCULAR HEMOGLOBIN 25.9 pg (27.0-31.0); MEAN CORPUSCULAR HGB CONC 33.1 g/dL (33.0-37.0); MEAN PLATELET VOLUME 7.2 fL (7.2-11.7); MONO # 0.7 K/uL (0.0-0.8); MONO % 6.2 % (0.0-10.0); NEUT # 8.9 K/uL (1.8-7.0); NEUT % 82.6 % (50.0-75.0); RBC 5.28 Mil/uL (3.80-5.20); RED CELL DISTRIBUTION WIDTH 17.4 % (11.5-14.5); WHITE BLOOD COUNT 10.8 K/uL (4.8-10.8)
[2018-05-29 14:50] LABS: HEMOGLOBIN 13.7 g/dL (11.0-16.0); MEAN CELL VOLUME 78.2 fL (81.0-99.0)
--- NOTE | 2018-05-29 14:50 | C.PDOC ---
History Of Present Illness 77 year old female presents to ED with complaint of SOB and productive cough for 1 week. Patient has a PMHx of COPD, CHF, hypertension, and pneumonia. Patient has a PSHx of colon cancer s/p resection. She denies fever, palpitations, leg edema, chest pain, abdominal pain. Time Seen by Provider: 05/29/18 14:03 Chief Complaint (Nursing): Shortness Of Breath History Per: Patient History/Exam Limitations: no limitations Onset/Duration Of Symptoms: Days (2-3) Current Symptoms Are (Timing): Still Present Quality: Aching Current Respiratory Medications: See Home Med List Associated Symptoms: Productive Cough. denies: Fever, Heart Racing, Ankle/Leg Swelling Past Medical History Reviewed: Historical Data, Nursing Documentation, Vital Signs Vital Signs: Last Vital Signs Temp 98 F 05/29/18 14:05 Pulse 120 H 05/29/18 14:05 Resp 24 05/29/18 14:05 BP 122/79 05/29/18 14:05 Pulse Ox 100 05/29/18 14:05 - Medical History PMH: Anxiety, Asthma, CHF, COPD, HTN, Malignancy (colon CA s/p resection), Pneumonia - [facility] Procedures ALCOHOL DETOXIFICATION (12/30/12) DRAINAGE OF LEFT PLEURAL CAVITY, PERCUTANEOUS APPROACH (10/26/17) EXCISION OF CECUM, OPEN APPROACH (10/09/17) EXCISION OF SIGMOID COLON, OPEN APPROACH (10/09/17) NON-INVASIVE MECHANICAL VENTILATION (12/30/12) Family History: States: No Known Family Hx - Social History Hx Tobacco Use: Yes (former) Hx Alcohol Use: No Hx Substance Use: No - Immunization History Hx Tetanus Toxoid Vaccination: No Hx Influenza Vaccination: No Hx Pneumococcal Vaccination: No Review Of Systems Constitutional: Negative for: Fever, Chills, Weakness Cardiovascular: Negative for: Palpitations Respiratory: Positive for: Cough, Shortness of Breath, Sputum Gastrointestinal: Negative for: Nausea, Vomiting, Abdominal Pain, Diarrhea Musculoskeletal: Positive for: Other (leg edema) Skin: Negative for: Rash Neurological: Negative for: Weakness, Numbness, Headache, Dizziness Physical Exam - Physical Exam Appears: Non-toxic, Unkempt (malodorous), Other (speaking full sentences) Skin: Normal Color, Warm, Dry Head: Atraumatic, Normacephalic Oral Mucosa: Moist Neck: Supple Chest: Symmetrical, No Deformity Cardiovascular: Rhythm Regular, No Murmur, Other (tachycardic) Respiratory: No Rales, No Rhonchi, Wheezing (scattered expiratory wheezing, bilaterally) Gastrointestinal/Abdominal: Normal Exam, Bowel Sounds, Soft, No Tenderness Extremity: No Calf Tenderness, No Swelling (bilateral lower extremities) Neurological/Psych: Oriented x3 ED Course And Treatment - Laboratory Results Result Diagrams: 06/01/18 06:36 06/01/18 06:36 Lab Results: pO2 18 mm/Hg (30-55) L 05/29/18 14:36 VBG pH 7.38 (7.32-7.43) 05/29/18 14:36 VBG pCO2 43 mmHg (40-60) 05/29/18 14:36 VBG HCO3 23.0 mmol/L 05/29/18 14:36 VBG Total CO2 26.7 mmol/L (22-28) 05/29/18 14:36 VBG O2 Sat (Calc) 35.0 % (40-65) L 05/29/18 14:36 VBG Base Excess 0.0 mmol/L (0.0-2.0) 05/29/18 14:36 VBG Potassium 4.3 mmol/L (3.6-5.2) 05/29/18 14:36 Sodium 120.0 mmol/l (132-148) L* 05/29/18 14:36 Chloride 85.0 mmol/L (98-107) L 05/29/18 14:36 Glucose 140 mg/dl (65-105) H 05/29/18 14:36 Lactate 2.5 mmol/L (0.7-2.1) H 05/29/18 14:36 Liter Flow 2.0 05/29/18 14:36 Crit Value Called To Dr vazquez/lori sarabia 05/29/18 14:36 Crit Value Called By Alexis wallace crt 05/29/18 14:36 Crit Value Read Back Y 05/29/18 14:36 Blood Gas Notified Time 1440 05/29/18 14:36 O2 Sat by Pulse Oximetry: 100 (RA) Pulse Ox Interpretation: Normal - Other Rad CXR X-Ray: Interpreted by Me, Viewed By Me Interpretation: IMPRESSION: No interval pathology noted. Extensive chronic changes as referenced above. Clinical correlation is needed in terms of the slight asymmetrical parenchymal opacity along with pleural parenchymal thickening and confounding overlying atherosclerotic vascular calcifications over each upper lobe. Please note the prior CT chest finding from 10/27/2017 neoplastic and inflammatory etiologies are considerations. Correlation with any prior workup/stability and/or tissue sampling is advised. Progress Note: Blood work, CXR ordered and reviewed. Patient given IV Solumedrol, albuterol nebs, IV avelox (elevated lactate, possible developing PNA). - Physician Consult Information Physician Contacted: Jose Rafael Glover Outcome Of Conversation: Discussed patient with PMD, agrees with admission for COPD, dyspnea, elevated BNP, elevated lactate. Medical Decision Making Medical Decision Making: Plan: CXR and EKG ordered for patient Labs ordered with CMP, cardiac enzymes, CBC, blood culture, and UA Patient given Albuterol IH Disposition - Disposition Disposition: HOSPITALIZED Disposition Time: 16:57 Condition: STABLE - Clinical Impression Clinical Impression: COPD exacerbation, Dyspnea, Elevated brain natriuretic peptide (BNP) level, Elevated lactic acid level - Scribe Statement The provider has reviewed the documentation as recorded by the Scribe (Shayy Pelletier) All medical record entries made by the Scribe were at my direction and personally dictated by me. I have reviewed the chart and agree that the record accurately reflects my personal performance of the history, physical exam, medical decision making, and the department course for this patient. I have also personally directed, reviewed, and agree with the discharge instructions and disposition. Decision To Admit - Pt Status Changed To: Hospital Disposition Of: Observation - . Bed Request Type: Telemetry Admitting Physician: Jose Rafael Glover Patient Diagnosis: COPD exacerbation, Dyspnea, Elevated brain natriuretic peptide (BNP) level, Elevated lactic acid level
[2018-05-29 14:54] LABS: PROTHROMBIN TIME 10.9 SECONDS (9.7-12.2)
[2018-05-29] MEDS ORDERED: Albuterol 0.083% Inhal Sol (2.5 mg/3 mL) UD ONE (15:17)
--- NOTE | 2018-05-29 16:01 | RAD ---
Date of service: 05/29/2018 PROCEDURE: CHEST RADIOGRAPH, 1 VIEW HISTORY: SOB COMPARISON: 11/30/2017 FINDINGS: LUNGS: Bilateral hyper aeration.-background COPD inferred. Biapical pleural parenchymal thickening. Slightly greater on the right. Note of a cavitary lesion on the CT chest from 10/27/2017 noted. Clinical correlation with any tissue histology here is recommended. Neoplastic and inflammatory basis are considerations. The spiculated mass is much more conspicuous on the CT than chest x-ray. Projecting over both lung apices are extensive atherosclerotic vascular calcifications. PLEURA: No pneumothorax or pleural fluid seen. CARDIOVASCULAR: There is presence of aortic atherosclerotic calcification on x-ray. Normal heart size. No pulmonary venous congestion apparent OSSEOUS STRUCTURES: Bilateral shoulder arthrosis. VISUALIZED UPPER ABDOMEN: Normal. OTHER FINDINGS: Extensive atherosclerotic vascular disease 6 over each lung apex-aortic knob in over each axilla. Additional rounded hyperdensities projecting over each axilla could be in patient's clothing-not apparent on prior 11/30/2017 study. IMPRESSION: No interval pathology noted. Extensive chronic changes as referenced above. Clinical correlation is needed in terms of the slight asymmetrical parenchymal opacity along with pleural parenchymal thickening and confounding overlying atherosclerotic vascular calcifications over each upper lobe. Please note the prior CT chest finding from 10/27/2017 neoplastic and inflammatory etiologies are considerations Correlation with any prior workup/stability and/or tissue sampling is advised.
[2018-05-29 16:21] LABS: ALB/GLOB RATIO 1.4 (1.0-2.1); ALBUMIN 4.1 g/dL (3.5-5.0); CALCIUM 9.6 mg/dl (8.6-10.4)
[2018-05-29] MEDS ORDERED: Sodium Chloride 0.9% 500 ML IV ONE (16:27)
[2018-05-29 16:33] LABS: CK-MB 0.9 ng/mL (0.0-3.38); TROPONIN I 0.044 ng/mL (0.00-0.120)
[2018-05-29] MEDS ORDERED: Moxifloxacin IV 400mg/250ml NS 400 MG/250 ML BAG IV ONE (16:57)
[2018-05-29] MEDS ORDERED: Sodium Chloride 0.9% 250 ML IV ONE (17:00)
[2018-05-29] MEDS ORDERED: Moxifloxacin IV 400mg/250ml NS 400 MG/250 ML BAG IVPB ONE (17:18)
[2018-05-29 17:25] LABS: VENOUS BLOOD GAS PCO2 36 mmHg (40-60); VENOUS BLOOD GAS PO2 15 mm/Hg (30-55)
--- NOTE | 2018-05-29 19:34 | CP.PCM.HP ---
History of Present Illness - History of Present Illness History of Present Illness: Chief complaint: Shortness of breath HPI: 77-year-old female admitted to the hospital with shortness of breath. Patient with a history of COPD, alcoholism, history of colon cancer, status post a colectomy came to the emergency room with increasing shortness of breath for 3 days duration. Patient was also having thick mucus production, associate with the shortness of breath. Patient ran out of her medications for nebulizer. Patient did not have any fever. Shortness of breath noted. In the emergency room patient was evaluated, bilateral chest wheezing and shortness of breath present, given bronchodilators and Solu-Medrol, and slightly feeling well. Past medical history: COPD, alcoholism, history of colon cancer, status post colectomy. Surgical history colectomy Allergies no known drug allergy Chronic smoker. The current hospitalization recently On examination: Vital signs stable. Chest good air entry regular heart sound extremities pedal edema 1+ Labs reviewed Nonspecific. Chest x-ray showing mild congestion patient labs reviewed Low sodium level noted, elevated proBNP level noted. Assessment: Patient is a 77-year-old female with a history of COPD, history of colon cancer, status post colectomy. Patient has a history of pulmonary hypertension, COPD, with the oxygen at home. Patient is somewhat noncompliant. Still continues to smoke. urrently doing well. COPD exacerbation likely. On intravenous low-dose corticosteroid bronchodilators. Will continue the current treatment. Patient now has low blood pressure. We will give a low-dose IV fluid, will closely monitor the possibility of CHF. We will follow the patient. DVT and GI prophylaxis Present on Admission - Present on Admission Any Indicators Present on Admission: No History of DVT/PE: No History of Uncontrolled Diabetes: No Urinary Catheter: No Decubitus Ulcer Present: No Past Patient History - Infectious Disease Hx of Infectious Diseases: None - Past Medical History & Family History Past Medical History?: Yes - Past Social History Smoking Status: Heavy Smoker > 10 Cigarettes Daily - CARDIAC Hx Congestive Heart Failure: Yes Hx Hypertension: Yes - PULMONARY Hx Asthma: Yes Hx Chronic Obstructive Pulmonary Disease (COPD): Yes Hx Pneumonia: Yes - NEUROLOGICAL Hx Neurological Disorder: No - HEENT Hx HEENT Problems: Yes Hx Cataracts: Yes (sx both eyes) - RENAL Hx Chronic Kidney Disease: No - ENDOCRINE/METABOLIC Hx Endocrine Disorders: No - HEMATOLOGICAL/ONCOLOGICAL Hx Blood Disorders: No - INTEGUMENTARY Hx Dermatological Problems: No - MUSCULOSKELETAL/RHEUMATOLOGICAL Hx Musculoskeletal Disorders: Yes Hx Falls: Yes - GASTROINTESTINAL Hx Gastrointestinal Disorders: No - GENITOURINARY/GYNECOLOGICAL Hx Genitourinary Disorders: No - PSYCHIATRIC Hx Anxiety: Yes Hx Substance Use: No - SURGICAL HISTORY Hx Surgeries: Yes Other/Comment: stomach surgery- 09/2017 - ANESTHESIA Hx Anesthesia: Yes Hx Anesthesia Reactions: No Hx Malignant Hyperthermia: No Meds Allergies/Adverse Reactions: Allergies Allergy/AdvReac Type Severity Reaction Status Date / Time No Known Allergies Allergy Verified 11/25/17 06:56 Results - Vital Signs Recent Vital Signs: Last Vital Signs Temp 98 F 05/29/18 14:05 Pulse 112 H 05/29/18 17:02 Resp 22 05/29/18 17:02 BP 91/52 L 05/29/18 17:02 Pulse Ox 100 05/29/18 17:02 - Labs Result Diagrams: 05/29/18 14:40 05/29/18 15:24 Labs: Laboratory Results - last 24 hr 05/29/18 05/29/18 05/29/18 14:36 14:40 14:40 WBC 10.8 RBC 5.28 H Hgb 13.7 D Hct 41.3 MCV 78.2 L D MCH 25.9 L MCHC 33.1 RDW 17.4 H Plt Count 230 D MPV 7.2 Neut % (Auto) 82.6 H Lymph % (Auto) 10.5 L [place] % (Auto) 6.2 Eos % (Auto) 0.2 Baso % (Auto) 0.5 Neut # (Auto) 8.9 H Lymph # (Auto) 1.1 [place] # (Auto) 0.7 Eos # (Auto) 0.0 Baso # (Auto) 0.1 PT 10.9 INR 1.0 APTT 31 pO2 18 L VBG pH 7.38 VBG pCO2 43 VBG HCO3 23.0 VBG Total CO2 26.7 VBG O2 Sat (Calc) 35.0 L VBG Base Excess 0.0 VBG Potassium 4.3 Sodium 120.0 L* Chloride 85.0 L Glucose 140 H Lactate 2.5 H Liter Flow 2.0 Crit Value Called To Dr vazquez/lori almanzares Crit Value Called By Alexis wallace magnetic tape composer operator Crit Value Read Back Y Blood Gas Notified Time 1440 Potassium Carbon Dioxide Anion Gap BUN Creatinine Est GFR ( Amer) Est GFR (Non-Af Amer) Random Glucose Calcium Total Bilirubin AST ALT Alkaline Phosphatase Total Creatine Kinase CK-MB (Mass) Troponin I NT-Pro-B Natriuret Pep Total Protein Albumin Globulin Albumin/Globulin Ratio Venous Blood Potassium 4.3 05/29/18 05/29/18 15:24 17:22 WBC RBC Hgb Hct MCV MCH MCHC RDW Plt Count MPV Neut % (Auto) Lymph % (Auto) [place] % (Auto) Eos % (Auto) Baso % (Auto) Neut # (Auto) Lymph # (Auto) [place] # (Auto) Eos # (Auto) Baso # (Auto) PT INR APTT pO2 15 L VBG pH 7.40 VBG pCO2 36 L VBG HCO3 21.2 VBG Total CO2 23.4 VBG O2 Sat (Calc) 23.7 L VBG Base Excess -2.0 L VBG Potassium 3.0 L Sodium 122 L 128.0 L Chloride 81 L 95.0 L Glucose 122 H Lactate 1.5 Liter Flow Crit Value Called To Crit Value Called By Crit Value Read Back Blood Gas Notified Time Potassium 4.3 Carbon Dioxide 24 Anion Gap 21 H BUN 84 H Creatinine 1.8 H Est GFR ( Amer) 33 Est GFR (Non-Af Amer) 27 Random Glucose 149 H D Calcium 9.6 Total Bilirubin 0.8 AST 25 ALT 17 Alkaline Phosphatase 87 Total Creatine Kinase 33 CK-MB (Mass) 0.90 Troponin I 0.0440 NT-Pro-B Natriuret Pep 2690 H Total Protein 7.0 Albumin 4.1 Globulin 2.9 Albumin/Globulin Ratio 1.4 Venous Blood Potassium 3.0 L
[2018-05-29] MEDS ORDERED: Ipratropium 0.02% Inhal Soln (0.5 mg/2.5 ml) UD IH SCH ×2 (20:00)
[2018-05-29] MEDS: MethylPREDNISolone 40 mg Vial IVP SCH (21:39)
[2018-05-29] MEDS: Sodium Chloride 0.9% 500 ML IV SCH (21:39)
[2018-05-30] MEDS: Albuterol-Ipratrop 3 mg / 0.5 (3 ml) UD INH SCH ×4 (01:20→19:45)
[2018-05-30] MEDS: Sodium Chloride 0.9% 500 ML IV SCH (07:00)
[2018-05-30] MEDS: MethylPREDNISolone 40 mg Vial IVP SCH ×2 (09:30→21:46)
[2018-05-30] MEDS: Moxifloxacin IV 400mg/250ml NS 400 MG/250 ML BAG IVPB SCH (17:08)
[2018-05-31] MEDS: Albuterol-Ipratrop 3 mg / 0.5 (3 ml) UD INH SCH ×4 (01:20→19:34)
[2018-05-31 02:51] LABS: SQUAMOUS EPITHIAL 1 /hpf (0-5); URINE BACTERIA RARE (<OCC); URINE BILIRUBIN NEGATIVE (NEGATIVE); URINE BLOOD NEGATIVE (NEGATIVE); URINE CLARITY Hazy (Clear); URINE COLOR Yellow (YELLOW); URINE GLUCOSE (UA) 1+ mg/dL (Normal); URINE LEUKOCYTE ESTERASE TRACE Leu/uL (Negative); URINE PROTEIN NEGATIVE (NEGATIVE); URINE UROBILINOGEN NORMAL mg/dL (0.2-1.0)
[2018-05-31] MEDS: Sodium Chloride 0.9% 500 ML IV SCH (03:00)
[2018-05-31] MEDS: MethylPREDNISolone 40 mg Vial IVP SCH ×2 (09:27→21:40)
[2018-05-31] MEDS: Moxifloxacin IV 400mg/250ml NS 400 MG/250 ML BAG IVPB SCH (17:22)
--- NOTE | 2018-05-31 22:10 | CP.PCM.PN ---
Subjective - Date & Time of Evaluation Date of Evaluation: 05/30/18 Time of Evaluation: 22:09 - Subjective Subjective: Patient having increasing symptoms of cough, weakness, and tiredness and fatigue noted. Patient is having mostly dry cough, unable to bring up the mucus. But the wheezing noted, shortness of breath even at rest noted. Saturation in room air 98% On examination: Vital signs are stable, bilateral chest wheezing and rales noted regular H artsell nontender abdomen. No pedal edema Assessment and recognition: 77-year-old female with a history of COPD, alcoholic abuse in the past, history of colon cancer now admitted with acute exacerbation of COPD. Patient will need to continue the bronchodilator steroid antibiotic. We will follow the patient Objective - Vital Signs/Intake and Output Vital Signs (last 24 hours): Temp Pulse Resp BP Pulse Ox 99 F 109 H 18 113/66 100 05/31/18 15:57 05/31/18 15:57 05/31/18 15:57 05/31/18 15:57 05/31/18 15:57 Intake and Output: 05/31/18 06/01/18 18:59 06:59 Intake Total 850 Balance 850 - Medications Medications: Current Medications Albuterol/Ipratropium (Duoneb 3 Mg/0.5 Mg (3 Ml) Ud) 3 ml INH RQ6 [facility] Last Admin: 05/31/18 19:34 Dose: 3 ml Furosemide (Lasix) 20 mg PO DAILY [facility] Last Admin: 05/31/18 09:38 Dose: Not Given Heparin Sodium (Porcine) (Heparin) 5,000 units SC Q12 [facility] Last Admin: 05/31/18 21:39 Dose: 5,000 units Moxifloxacin HCl (Avelox Iv 400mg/250ml Ns) 400 mg in 250 mls @ 167 mls/hr IVPB Q24H [facility]; Protocol Last Admin: 05/31/18 17:22 Dose: 167 mls/hr Sodium Chloride (Sodium Chloride 0.9%) 500 mls @ 50 mls/hr IV .Q10H [facility] Last Admin: 05/31/18 03:00 Dose: Not Given Methylprednisolone (Solu-Medrol) 40 mg IVP Q12 [facility] Stop: 06/01/18 22:01 Last Admin: 05/31/18 21:40 Dose: 40 mg Pantoprazole Sodium (Protonix Inj) 40 mg IVP DAILY [facility] Last Admin: 05/31/18 09:24 Dose: 40 mg - Labs Labs: 05/29/18 14:40 05/29/18 15:24 PT 10.9 SECONDS (9.7-12.2) 05/29/18 14:40 INR 1.0 05/29/18 14:40 APTT 31 SECONDS (21-34) 05/29/18 14:40
--- NOTE | 2018-05-31 22:12 | CP.PCM.PN ---
Subjective - Date & Time of Evaluation Date of Evaluation: 05/31/18 Time of Evaluation: 22:10 - Subjective Subjective: Patient still having wheezing today. Difficult time in getting up and going to the bathroom. Shortness of breath even at minimal rest noted. Minimal exertion causes increasing S OB. No chest pain. Mucus production minimally noted. On examination: Vital signs are stable. Chest bilateral good air entry, expiratory wheezing bilaterally noted, her heart sounds are regular nontender abdomen no pedal edema Currently no labs today. I will repeat the labs tomorrow. Assessment: 77-year-old female with a history of COPD, colon cancer, alcoholic abuse. History of anxiety. Admitted at this time with a COPD exacerbation on antibiotic. Bronchodilators. Corticosteroid. Chronic smoker in the past. Repeat the labs tomorrow, sputum culture, will admit the patient from observation and will follow the patient Objective - Vital Signs/Intake and Output Vital Signs (last 24 hours): Temp Pulse Resp BP Pulse Ox 99 F 109 H 18 113/66 100 05/31/18 15:57 05/31/18 15:57 05/31/18 15:57 05/31/18 15:57 05/31/18 15:57 Intake and Output: 05/31/18 06/01/18 18:59 06:59 Intake Total 850 Balance 850 - Medications Medications: Current Medications Albuterol/Ipratropium (Duoneb 3 Mg/0.5 Mg (3 Ml) Ud) 3 ml INH RQ6 [facility] Last Admin: 05/31/18 19:34 Dose: 3 ml Furosemide (Lasix) 20 mg PO DAILY [facility] Last Admin: 05/31/18 09:38 Dose: Not Given Heparin Sodium (Porcine) (Heparin) 5,000 units SC Q12 [facility] Last Admin: 05/31/18 21:39 Dose: 5,000 units Moxifloxacin HCl (Avelox Iv 400mg/250ml Ns) 400 mg in 250 mls @ 167 mls/hr IVPB Q24H [facility]; Protocol Last Admin: 05/31/18 17:22 Dose: 167 mls/hr Sodium Chloride (Sodium Chloride 0.9%) 500 mls @ 50 mls/hr IV .Q10H [facility] Last Admin: 05/31/18 03:00 Dose: Not Given Methylprednisolone (Solu-Medrol) 40 mg IVP Q12 [facility] Stop: 06/01/18 22:01 Last Admin: 05/31/18 21:40 Dose: 40 mg Pantoprazole Sodium (Protonix Inj) 40 mg IVP DAILY [facility] Last Admin: 05/31/18 09:24 Dose: 40 mg - Labs Labs: 05/29/18 14:40 05/29/18 15:24 PT 10.9 SECONDS (9.7-12.2) 05/29/18 14:40 INR 1.0 05/29/18 14:40 APTT 31 SECONDS (21-34) 05/29/18 14:40
[2018-06-01 06:52] LABS: BASO % 0.3 % (0.0-2.0); HEMOGLOBIN 9.6 g/dL (11.0-16.0); LYMPH # 0.4 K/uL (1.0-4.3); LYMPH % 6.5 % (20.0-40.0); MEAN CELL VOLUME 80.2 fL (81.0-99.0); MEAN CORPUSCULAR HEMOGLOBIN 26.3 pg (27.0-31.0); MEAN CORPUSCULAR HGB CONC 32.8 g/dL (33.0-37.0); MONO # 0.2 K/uL (0.0-0.8); MONO % 3.4 % (0.0-10.0); NEUT # 5.6 K/uL (1.8-7.0); NEUT % 89.8 % (50.0-75.0); PLATELET COUNT 154 K/uL (130-400); RBC 3.64 Mil/uL (3.80-5.20); RED CELL DISTRIBUTION WIDTH 18.2 % (11.5-14.5); WHITE BLOOD COUNT 6.2 K/uL (4.8-10.8)
[2018-06-01 07:49] LABS: ALB/GLOB RATIO 1.5 (1.0-2.1); ALBUMIN 3.4 g/dL (3.5-5.0); CALCIUM 8.1 mg/dl (8.6-10.4)
[2018-06-01] MEDS: Albuterol-Ipratrop 3 mg / 0.5 (3 ml) UD INH SCH ×3 (07:49→20:13)
[2018-06-01] MEDS: MethylPREDNISolone 40 mg Vial IVP SCH ×2 (09:30→21:33)
[2018-06-01 09:53] LABS: ANISOCYTOSIS SLIGHT; HYPOCHROMIC SLIGHT; LYMPHOCYTE 7 % (20-40); MONOCYTE 3 % (0-10); NEUTROPHIL 90 % (50-75); OVALOCYTES SLIGHT; PLATELET ESTIMATE NORMAL (NORMAL); POIKILOCYTOSIS SLIGHT; TOTAL CELLS COUNTED 100
[2018-06-01 09:54] LABS: BURR CELLS SLIGHT
--- NOTE | 2018-06-01 10:55 | RAD ---
Date of service: 06/01/2018 HISTORY: pna COMPARISON: 05/29/2018. Single-view chest. 11/25/2017. Two-view chest. TECHNIQUE: Chest PA and lateral views FINDINGS: LUNGS: Hyperinflation, manifestations of COPD. No active pulmonary disease. Stable right apical scarring. PLEURA: No significant pleural effusion identified. No pneumothorax apparent. CARDIOVASCULAR: No radiographic findings to suggest acute or significant cardiovascular disease. Atherosclerotic calcifications identified primarily aortic arch. OSSEOUS STRUCTURES: No significant abnormalities. VISUALIZED UPPER ABDOMEN: Normal. OTHER FINDINGS: None. IMPRESSION: No active disease. No significant interval change compared to the prior examination(s).
[2018-06-01] MEDS: Magnesium Sulfate 1 gm in D5W 1 GM/100 ML BAG IVPB SCH (11:11)
--- NOTE | 2018-06-01 21:46 | CP.PCM.PN ---
Subjective - Date & Time of Evaluation Date of Evaluation: 06/01/18 Time of Evaluation: 21:45 - Subjective Subjective: Patient is somewhat confused at night. She is feeling that she is at home at this time. She is agitated at times. She denies any chest pain. Shortness of breath noted. On examination: Vital signs are stable. Chest bilateral minimal expiratory wheezing noted, regular heart sounds, nontender abdomen. Edema 1+ noted. Assessment and recommendation: 77-year-old female with a history of COPD, hypertension, CA colon. Admitted with COPD exacerbation. Taper the steroid. Possible discharge plan tomorrow. We will follow the patient Objective - Vital Signs/Intake and Output Vital Signs (last 24 hours): Temp Pulse Resp BP Pulse Ox 98 F 108 H 20 106/58 L 98 06/01/18 15:30 06/01/18 15:30 06/01/18 15:30 06/01/18 15:30 06/01/18 15:30 Intake and Output: 06/01/18 06/02/18 18:59 06:59 Intake Total 480 Balance 480 - Medications Medications: Current Medications Albuterol/Ipratropium (Duoneb 3 Mg/0.5 Mg (3 Ml) Ud) 3 ml INH RQ6 [facility] Last Admin: 06/01/18 20:13 Dose: Not Given Furosemide (Lasix) 20 mg PO DAILY [facility] Last Admin: 06/01/18 09:30 Dose: Not Given Heparin Sodium (Porcine) (Heparin) 5,000 units SC Q12 [facility] Last Admin: 06/01/18 21:33 Dose: 5,000 units Methylprednisolone (Solu-Medrol) 40 mg IVP Q12 [facility] Stop: 06/01/18 22:01 Last Admin: 06/01/18 21:33 Dose: 40 mg Moxifloxacin HCl (Avelox) 400 mg PO Q24H [facility] Last Admin: 06/01/18 17:00 Dose: 400 mg Pantoprazole Sodium (Protonix Ec Tab) 40 mg PO DAILY [facility] - Labs Labs: 06/01/18 06:36 06/01/18 06:36 PT 10.9 SECONDS (9.7-12.2) 05/29/18 14:40 INR 1.0 05/29/18 14:40 APTT 31 SECONDS (21-34) 05/29/18 14:40
[2018-06-02] MEDS: Albuterol-Ipratrop 3 mg / 0.5 (3 ml) UD INH SCH ×3 (01:13→13:27)
[2018-06-02] MEDS ORDERED: Pantoprazole 40 mg EC Tab PO SCH (10:00)
[2018-06-02] MEDS ORDERED: Multiple Vitamins Tab PO SCH (10:00)
[2018-06-02 16:12] VITALS: BP 103/61; PULSE 115; RESP 20; TEMP 97.9
[2018-06-02 20:33] VITALS: O2SAT 100
--- NOTE | 2018-06-03 12:04 | CP.PCM.DIS ---
Provider - Provider Date of Admission: 06/01/18 21:44 Attending physician: Jose Rafael Glover MD Time Spent in preparation of Discharge (in minutes): 45 Hospital Course - Lab Results Lab Results: Micro Results 05/29/18 15:00 Blood Blood Culture - Preliminary NO GROWTH AFTER 4 DAYS 05/29/18 14:25 Blood Blood Culture - Preliminary NO GROWTH AFTER 4 DAYS 06/01/18 05:46 Sputum Gram Stain - Final Most Recent Lab Values WBC 6.2 K/uL (4.8-10.8) 06/01/18 06:36 RBC 3.64 Mil/uL (3.80-5.20) L 06/01/18 06:36 Hgb 9.6 g/dL (11.0-16.0) L D 06/01/18 06:36 Hct 29.2 % (34.0-47.0) L 06/01/18 06:36 MCV 80.2 fL (81.0-99.0) L D 06/01/18 06:36 MCH 26.3 pg (27.0-31.0) L 06/01/18 06:36 MCHC 32.8 g/dL (33.0-37.0) L 06/01/18 06:36 RDW 18.2 % (11.5-14.5) H 06/01/18 06:36 Plt Count 154 K/uL (130-400) 06/01/18 06:36 MPV 7.0 fL (7.2-11.7) L 06/01/18 06:36 Neut % (Auto) 89.8 % (50.0-75.0) H 06/01/18 06:36 Lymph % (Auto) 6.5 % (20.0-40.0) L 06/01/18 06:36 [place] % (Auto) 3.4 % (0.0-10.0) 06/01/18 06:36 Eos % (Auto) 0.0 % (0.0-4.0) 06/01/18 06:36 Baso % (Auto) 0.3 % (0.0-2.0) 06/01/18 06:36 Neut # (Auto) 5.6 K/uL (1.8-7.0) 06/01/18 06:36 Lymph # (Auto) 0.4 K/uL (1.0-4.3) L 06/01/18 06:36 [place] # (Auto) 0.2 K/uL (0.0-0.8) 06/01/18 06:36 Eos # (Auto) 0.0 K/uL (0.0-0.7) 06/01/18 06:36 Baso # (Auto) 0.0 K/uL (0.0-0.2) 06/01/18 06:36 Neutrophils % (Manual) 90 % (50-75) H 06/01/18 06:36 Lymphocytes % (Manual) 7 % (20-40) L 06/01/18 06:36 Monocytes % (Manual) 3 % (0-10) 06/01/18 06:36 Platelet Estimate Normal (NORMAL) 06/01/18 06:36 Hypochromasia (manual) Slight 06/01/18 06:36 Poikilocytosis (manual Slight 06/01/18 06:36 Anisocytosis (manual) Slight 06/01/18 06:36 Ovalocytes Slight 06/01/18 06:36 [place] Cells Slight 06/01/18 06:36 PT 10.9 SECONDS (9.7-12.2) 05/29/18 14:40 INR 1.0 05/29/18 14:40 APTT 31 SECONDS (21-34) 05/29/18 14:40 pO2 15 mm/Hg (30-55) L 05/29/18 17:22 VBG pH 7.40 (7.32-7.43) 05/29/18 17:22 VBG pCO2 36 mmHg (40-60) L 05/29/18 17:22 VBG HCO3 21.2 mmol/L 05/29/18 17:22 VBG Total CO2 23.4 mmol/L (22-28) 05/29/18 17:22 VBG O2 Sat (Calc) 23.7 % (40-65) L 05/29/18 17:22 VBG Base Excess -2.0 mmol/L (0.0-2.0) L 05/29/18 17:22 VBG Potassium 3.0 mmol/L (3.6-5.2) L 05/29/18 17:22 Sodium 128.0 mmol/l (132-148) L 05/29/18 17:22 Chloride 95.0 mmol/L (98-107) L 05/29/18 17:22 Glucose 122 mg/dl (65-105) H 05/29/18 17:22 Lactate 1.5 mmol/L (0.7-2.1) 05/29/18 17:22 Liter Flow 2.0 05/29/18 14:36 Crit Value Called To Dr vazquez/lori sarabia 05/29/18 14:36 Crit Value Called By Alexis wallace crt 05/29/18 14:36 Crit Value Read Back Y 05/29/18 14:36 Blood Gas Notified Time 1440 05/29/18 14:36 Sodium 128 mmol/L (132-148) L 06/01/18 06:36 Potassium 4.7 mmol/L (3.6-5.2) 06/01/18 06:36 Chloride 96 mmol/L (98-107) L 06/01/18 06:36 Carbon Dioxide 22 mmol/L (22-30) 06/01/18 06:36 Anion Gap 15 (10-20) 06/01/18 06:36 BUN 43 mg/dL (7-17) H 06/01/18 06:36 Creatinine 1.1 mg/dL (0.7-1.2) 06/01/18 06:36 Est GFR ( Amer) 58 06/01/18 06:36 Est GFR (Non-Af Amer) 48 06/01/18 06:36 POC Glucose (mg/dL) 156 mg/dL (65-110) H 06/02/18 06:27 Random Glucose 140 mg/dL (65-105) H 06/01/18 06:36 Calcium 8.1 mg/dl (8.6-10.4) L 06/01/18 06:36 Phosphorus 1.8 mg/dL (2.5-4.5) L 06/01/18 06:36 Magnesium 1.1 mg/dL (1.6-2.3) L 06/01/18 06:36 Total Bilirubin 0.6 mg/dL (0.2-1.3) 06/01/18 06:36 AST 34 U/L (14-36) 06/01/18 06:36 ALT 15 U/L (9-52) 06/01/18 06:36 Alkaline Phosphatase 52 U/L (38-126) 06/01/18 06:36 Total Creatine Kinase 33 U/L (30-135) 05/29/18 15:24 CK-MB (Mass) 0.90 ng/mL (0.0-3.38) 05/29/18 15:24 Troponin I 0.0440 ng/mL (0.00-0.120) 05/29/18 15:24 NT-Pro-B Natriuret Pep 2690 pg/mL (0-900) H 05/29/18 15:24 Total Protein 5.6 g/dL (6.3-8.3) L 06/01/18 06:36 Albumin 3.4 g/dL (3.5-5.0) L 06/01/18 06:36 Globulin 2.2 gm/dL (2.2-3.9) 06/01/18 06:36 Albumin/Globulin Ratio 1.5 (1.0-2.1) 06/01/18 06:36 Venous Blood Potassium 3.0 mmol/L (3.6-5.2) L 05/29/18 17:22 Urine Color Yellow (YELLOW) 05/31/18 02:44 Urine Clarity Hazy (Clear) 05/31/18 02:44 Urine pH 5.0 (5.0-8.0) 05/31/18 02:44 Ur Specific [place] 1.011 (1.003-1.030) 05/31/18 02:44 Urine Protein Negative mg/dL (NEGATIVE) 05/31/18 02:44 Urine Glucose (UA) 1+ mg/dL (Normal) 05/31/18 02:44 Urine Ketones Negative mg/dL (NEGATIVE) 05/31/18 02:44 Urine Blood Negative (NEGATIVE) 05/31/18 02:44 Urine Nitrate Negative (NEGATIVE) 05/31/18 02:44 Urine Bilirubin Negative (NEGATIVE) 05/31/18 02:44 Urine Urobilinogen Normal mg/dL (0.2-1.0) 05/31/18 02:44 Ur Leukocyte Esterase Trace Gonzalo/uL (Negative) 05/31/18 02:44 Urine WBC (Auto) 3 /hpf (0-5) 05/31/18 02:44 Urine RBC (Auto) 1 /hpf (0-3) 05/31/18 02:44 Ur Squamous Epith Cells 1 /hpf (0-5) 05/31/18 02:44 Urine Bacteria Rare (<OCC) 05/31/18 02:44 - Hospital Course Hospital Course: Chief complaint: Shortness of breath HPI: 77-year-old female admitted to the hospital with shortness of breath. Patient with a history of COPD, alcoholism, history of colon cancer, status post a colectomy came to the emergency room with increasing shortness of breath for 3 days duration. Patient was also having thick mucus production, associate with the shortness of breath. Patient ran out of her medications for nebulizer. Patient did not have any fever. Shortness of breath noted. In the emergency room patient was evaluated, bilateral chest wheezing and shortness of breath present, given bronchodilators and Solu-Medrol, and slightly feeling well. Past medical history: COPD, alcoholism, history of colon cancer, status post colectomy. Surgical history colectomy Allergies no known drug allergy Chronic smoker. The current hospitalization recently On examination: Vital signs stable. Chest good air entry regular heart sound extremities pedal edema 1+ Labs reviewed Nonspecific. Chest x-ray showing mild congestion patient labs reviewed Low sodium level noted, elevated proBNP level noted. Assessment: Patient is a 77-year-old female with a history of COPD, history of colon cancer, status post colectomy. Patient has a history of pulmonary hypertension, COPD, with the oxygen at home. Patient is somewhat noncompliant. Still continues to smoke. urrently doing well. COPD exacerbation likely. On intravenous low-dose corticosteroid bronchodilators. Will continue the current treatment. Patient now has low blood pressure. We will give a low-dose IV fluid, will closely monitor the possibility of CHF. We will follow the patient. DVT and GI prophylaxis Course in the hospital: Patient admitted to the hospital with acute COPD exacerbation. Initial chest x-ray showing no evidence of pneumonia. Patient started on intravenous antibiotic corticosteroid bronchodilators. Patient also had a hypotension, placed on IV fluid. Patient slowly improved. Her room air oxygen saturation also improved She is clinically stable. She can be discharged home. She will follow-up as an outpatient. Final diagnosis acute decompensated, acute exacerbation of the COPD. Hypertension. Bronchopneumonia. She will continue the bronchodilators, inhaled corticosteroids. Oxygen at home. We will follow the patient Discharge Plan - Follow Up Plan Condition: STABLE Disposition: HOME/ ROUTINE Instructions: COPD Including Emphysema (DC) Referrals: Jose Rafael Glover MD [Staff Provider] - 06/16/18
== END 2018-06-02 18:40 | disposition home or self-care (01) | DRG 190 ==
LOC: C.ER 14:01 → C.9E 16:57 → C.6T 19:15 → OBSVTOIN 06-01 21:44
PROVIDERS: ADMIT Internal Medicine; ATTEND Internal Medicine
DX: J44.1 Chronic obstructive pulmonary disease with (acute) exacerbation (principal); J18.0 Bronchopneumonia, unspecified organism; J44.0 Chronic obstructive pulmonary disease with (acute) lower respiratory infection; I11.0 Hypertensive heart disease with heart failure; I50.9 Heart failure, unspecified; I27.20 Pulmonary hypertension, unspecified; F17.200 Nicotine dependence, unspecified, uncomplicated; Z99.81 Dependence on supplemental oxygen; Z85.038 Personal history of other malignant neoplasm of large intestine; Z87.01 Personal history of pneumonia (recurrent); Z90.49 Acquired absence of other specified parts of digestive tract; Z91.19 Patient's noncompliance with other medical treatment and regimen

== ENCOUNTER 2018-06-03 07:46 | Emergency (ER) | payer MEDICARE, MEDICAID | END 2018-06-03 11:03 | disposition home or self-care (01) | LOC: C.ER 07:46 ==